=== PATIENT | female | born 1945 | race Caucasian/White ===

== ENCOUNTER 2017-12-11 14:59 | Emergency (ER) | payer MEDICARE ==
--- OUTSIDE RECORDS SUMMARY | 2017-12-11 15:11 | XMS REPORT ---
:1945 External Reference #:[id number] Author Organization [facility] Address [address] [place] [address] Phone [phone] Care Team Providers Name Role Phone Jessica David MD Primary Care Physician Unavailable Payers Type Date Identification Numbers Payment Provider Subscriber Medicare Primary Effective: Policy Number: Medicare [place] Grigsby 2009 [id number] PayID: [id number] [address] [place] [address] Medigap Part B Policy Number: [id number] [facility] [place] Grigs[place] PayID: [id number] [address] [place] [address] Workers Compensation Effective: Policy Number: Jolie Grigsby 2014 [id number] Expires: [address] Onset: 2014 [address] [place] [address] Medigap Part B Effective: Policy Number: [employer] Lisa 2012 [id number] Kristina Grigsby Expires: 2014 PayID: [id number] [address] [place] [address] Medigap Part B Expires: 2009 Policy Number: BS Of MAGEN Grigsby [id number] Group Number: [id number] [address] PayID: [id number] [address] Medigap Part B Expires: 2012 Policy Number: BS Of [employer]EN Grigsby [id number] PayID: [id number] [address] [address] Problems Date Description Provider Status Onset: 09/11/2007 Skin sensation disturbance Trip Washington M.D. Active Onset: 04/30/2011 Postablative hypothyroidism Trip Washington M.D. Active Onset: 01/09/2012 Essential hypertension Trip Washington M.D. Active Onset: 07/09/2012 Pure hypercholesterolemia Trip Washington M.D. Active Onset: 11/04/2014 Gastroesophageal reflux disease with Jessica David M.D. Active hiatal hernia Onset: 11/04/2014 Family history of malignant neoplasm Jessica Davdi M.D. Active of breast Note: sister Onset: 11/04/2014 Hypercholesterolemia Jessica David M.D. Active Onset: 11/04/2006 Hyperplastic polyp of intestine Jessica David M.D. Active Onset: 11/04/2014 Constipation - functional Jessica David M.D. Active Onset: 06/21/2015 Internal hemorrhoids without Jessica David M.D. Active complication Onset: 07/06/2015 Thoracic and lumbosacral neuritis Karyn Roth MD Active Onset: 09/12/2015 Idiopathic peripheral neuropathy Karyn Rtoh MD Active Onset: 11/14/2015 Localized, primary osteoarthritis of Jacinda Winter M.D. Active the pelvic region and thigh Onset: 11/14/2015 Trochanteric bursitis Jessica David M.D. Active Onset: 07/24/2016 Osteoporosis Jessica David M.D. Active Note: hip R Onset: 04/30/2011 Increased frequency of urination Trip Washington M.D. Resolved Resolved: 11/07/2014 Onset: 04/30/2011 Low back pain Trip Washington M.D. Resolved Resolved: 11/07/2014 Onset: 09/04/2011 Palpitations Trip Washington M.D. Resolved Resolved: 11/07/2014 Onset: 08/14/2012 Difficulty breathing Trip Washington M.D. Resolved Resolved: 11/07/2014 Social History Type Date Description Comments Lives With Occupation Retired Cigarette Use Never Smoked Cigarettes ETOH Use Occasionally consumes alcohol Smoking Patient has never smoked Exercise Type/Frequency Exercises regularly water aerobics 3 times a week; active around the house. Allergies, Adverse Reactions, Alerts Date Description Reaction Status Severity Comments 02/24/2007 Darvon active GI Upset 04/30/2011 Iodine active developed itching & rash 05/19/2015 Statins active diffuse joint pains Medications Medication Date Status Form Strength Qnty SIG Indications Ordering Provider Amoxicillin/Cl 12/09 Hx Tablets 875-125mg 20tab 1 tab by J01.90 Jessica avulanate s mouth twice a David, - day M.D. 12/19 Tessalon 09/30 Active Capsules 100mg 30cap 1-2 tab by Jessica Perles s mouth daily David, at night for M.D. cough Fenofibrate 05/19 Active Tablets 145mg 90tab Take 1 Tablet E78.0 Trip Jimenez s Daily Chasity Washington Synthroid 03/03 Active Tablets 125mcg 180ta 1 by mouth bs daily 3 times David, a week M.D. alternating with 150 mg daily Synthroid 06/24 Active Tablets 150mcg 90tab 1 Tab Daily 4 s Times A Week Chasity David Triamterene/Hy 01/13 Active Capsules 37.5-25mg 90cap Take 1 Jessica drochlorothiaz s Capsule Every , Morning M.DSeb Citrucel 10/14 Active Packet 2 tbsp qam Trip ESeb Chasity Washington Calcium + D Active Tablets 600mg 1 PO daily Unknown Vitamin B Active Tablets 1 PO qd Miller, / MD Srikanth Aspirin Active Tablets 81mg 1 po qd Miralax Active Powder 3350NF 17 gm every day mixed w/ 8 oz water/juice daily Klor-Con M10 Active Tablets ER 10Meq 180ta Take 2 bs Tablets once David, a day M.DSeb Tylenol PM Active Tablets take as prescribed on bottle as needed pain Azithromycin 10/29 Hx Tablets 250mg 6tabs take 2 tab on day 1 then 1 David, - tab daily x 4 M.D. Proair 10/07 Hx Aerosol 108(90Bas 8.500 2 puffs by R05 Jessica Respiclick /2017 e) gm mouth every 6 David, - mcg/Act hours as M.D. 12/09 needed Oseltamivir 09/27 Hx Capsules 75mg 10cap 1 by mouth J20.9 Trip E. Phosphate /2017 s twice a day Padmini, - for 5 days M.D. 10/07 Prednisone 05/27 Hx Tablets 10mg qs take 3 tab L29.8 Jessica /2016 daily x 2 David, - days then 2 M.D. 06/04 tab daily x 3 days and then 1 tab daily x 3 days Alendronate 07/24 Hx Tablets 70mg 12tab not M81.8 Jessica Sodium s taking---take Joseph, - 1 tablet by M.D. 12/09 mouth weekly Cefuroxime 03/05 Hx Tablets 250mg 20tab one tablet J01.10 César Axetil s twice daily ERNESTINE Patton - for 10 days. 03/16 Metformin HCL 11/09 Hx Tablets 500mg 60tab 1 by mouth Jessica /2016 s twice a day Joseph - M.D. 12/19 Gabapentin 09/12 Hx Capsules 100mg 120ca 1 at bedtime G60.9 Karyn ps x1 week then MD Ira - 1 twice a day 10/23 x1 wk then qam and 2 qpm x1wk then 2 bid. Cefuroxime 09/08 Hx Tablets 250mg 20tab one tablet J01.90 César Axetil s twice daily ERNESTINE Patton - for 10 days. 09/19 Amoxicillin/Cl 07/13 Hx Tablets 875-125mg 20tab 1 tab by J01.90 Jessica avulanate s mouth twice a Joseph, Potassium - day M.D. 09/08 Alendronate 07/13 Hx Tablets 70mg 12tab take 1 tablet M81.8 Jessica Sodium s by mouth Joseph, - weekly M.D. 10/23 Metronidazole 06/21 Hx Gel 0.75% 1unit apply N76.0 Jessica s intravaginall Joseph, - y once a day M.D. 06/28 x 7 Metrogel-Vagin 05/25 Hx Gel 0.75% 70gm once a day X 7 days Joseph - M.D. 06/21 Synthroid 11/23 Hx Tablets 137mcg 90tab 1 by mouth s every other Joseph, - day M.D. 03/03 with 150 mcg Synthroid 06/24 Hx Tablets 125mcg 180ta 2 by mouth bs every day Oscar David M.D. 09/21 Atorvastatin 05/13 Hx Tablets 10mg 90tab 1 by mouth 272.0 s every day Oscar David M.DSeb 03/03 Nyamyc 05/13 Hx Powder [id number] 100gm apply to 112.9 t/GM s affected area Joseph, - twice a day M.D. 09/21 x 10 days needed Oxycodone-Acet 01/20 Hx Tablets 5-325mg 10tab 08/13 to 1 tab 847.2 Jessica aminophen s as needed for Joseph, - severe pain M.D. 05/13 at night only Synthroid 07/14 Hx Tablets 200mcg 90tab 1 po qd Jayce Oscar Restrepo M.D.,FACP 07/15 Synthroid 04/30 Hx Tablets 200mcg 90tab 1 po qd 244.1 Trip ESeb /2010 Oscar Gunderson M.D. 09/04 Synthroid 04/30 Hx Tablets 25mcg 60tab 1 po qd 244.1 Trip ESeb /2010 Oscar Gunderson M.D. 09/04 Triamterene/Hy 04/03 Hx Capsules 37.5-25mg 90cap Take 1 Trip Jimenez drochlorothiaz /2010 s Capsule Every martín Washington - Morning M.D. 01/13 Amlodipine 03/11 Hx Tablets 10mg 90tab Take 1 Tablet Trip Jimenez Besylate /2010 s Daily Oscar Washington M.D. 03/05 Amoxicillin 07/25 Hx Tablets 500mg 30tab 1 po tid for Trip Jimenez s 10 days Oscar Washington M.D. 08/31 Zithromax 02/20 Hx Tablets 250mg 1Pack as per Trip Robledo Oscar Murrieta M.D. 04/06 Robitussin 02/20 Hx 6Oz 10 cc qhs and Trip Jimenez With Codeine q 4 hrs prn Breonna Washington M.D. 04/06 Flonase 10/19 Hx Suspension 50mcg/Act 1Bott 1 intranasal Trip Jimenez le puff to each Oscar Washington nostril daily Chasity 01/24 Tessalon 09/30 Hx Capsules 100mg 30cap 1-2 po tid Trip Jimenez s prn Oscar Washington M.D. 01/24 Medrol (Bob) 09/30 Hx Tablets 4mg 1tabs per dosepack Trip Jimenez Oscar Murrieta M.D. 04/06 Fish Oil 09/26 Hx Capsules Not Sure 1 po qd Trip Jimenez Oscar Washington M.D. 01/08 Augmentin 09/26 Hx Tablets 875-125mg 20tab 1 po bid Trip Jimenez Oscar Gunderson M.D. 01/24 Z Pack 09/02 Hx Tablets 250mg 5tabs as directed. Trip Jimenez Oscar Washington M.D. 09/26 Norvasc 07/20 Hx Tablets 10mg 90tab 1 po qd Trip Jimenez Oscar Gunderson M.D. 03/11 Relafen 11/04 Hx Tablets 500mg 60tab 1 po bid with Trip Jimenez s food Oscar Washington M.D. 02/08 Norvasc 05/17 Hx Tablets 5mg 90tab 1 po qd Trip Jimenez Oscar Gunderson M.D. 07/20 Zithromax 05/17 Hx Tablets 250mg 1Pack as per Trip Robledo directions Oscar Washington M.D. 08/02 Physical 04/05 Hx PT evaluation Trip Mancera and treatment Oscar Washington for l buttock MPamela 02/08 pain /2009 Physical 09/30 Hx 10Vis left Trip Jimenez Therapy /2007 its shoulder,arm Oscar Washington and abd pain. MPamela 02/08 evaluate and treat Nitrostat 09/23 Hx Tablets Sub 0.4mg 25tab one sl q5min Trip Jimenez s up to 3 doses Oscar Washington M.D. 10/14 Atenolol 09/23 Hx Tablets 25mg 30tab 1 po bid Trip Jimenez s Oscar Washington M.D. 05/17 Dyazide 09/10 Hx Capsules 37.5-25 90cap 1 po qam Trip Jimenez Oscar Gunderson M.D. 04/03 Levaquin 05/13 Hx Tablets 500mg 1O 1 po qd x 10 Trip ESeb days Oscar Washington M.D. 09/10 . 05/13 Hx physical Trip Jimenez therapy: Oscar Washington eval/Rx Chasity 09/10 chronic r shoulder pain Evista Hx Tablets 60mg 90tab 1 PO qd Unknown /0000 s - 09/11 Albuterol Hx Aerosol 90mcg/Act 1unit 2 Puffs po Jayce /0000 s qid prn Oscar Pizano M.D.,FACP 06/10 Multi-Day Hx Tablets 1 PO qd Unknown Vitamins /0000 - 03/05 Metamucil Hx Barken, /0000 MD Srikanth - 10/14 Gabapentin Hx Capsules 100mg 1 po tid Unknown /0000 - 07/20 Aspirin Hx Chewtabs 81mg 30uni Unknown Childrens /0000 ts - 08/14 Red Rice Yeast Hx 2 po qd Unknown /0000 - 05/13 Ibuprofen Hx Tablets 400mg 40tab 1 by mouth Unknown /0000 s every 6hr as - needed 07/[address] 40mg 90cap take 1 Jessica /0000 s capsule daily Oscar David M.D. 10/23 Synthroid 00/00 Hx Tablets 175mcg 90tab Take 1 Tablet Jessica /0000 s Daily Oscar David.DSeb 06/24 Multi Vitamin Hx Tablets not taking Unknown Daily /0000 - 07/23 Fluticasone 00 Hx Suspension 50mcg/Act 32gm 1 squirts Jessica Propionate /0000 each nostril Joseph, - every day otc M.DSeb 12/09 as needed Omeprazole [address] 20mg 1 by mouth Unknown /0000 every day - 10/[address] 20mg 1 by mouth Unknown Magnesium /0000 every day - OTC 12/19 Gabapentin 00 Hx Capsules 100mg 1 by mouth @ Unknown /0000 hs - 07/23 Aleve PM Hx Tablets 220-25mg as needed Unknown /0000 OTC - 05/26 Medications Administered in Office Medication Date Status Form Strength Qnty SIG Indications Ordering Provider Depomedrol Administered Injection Jinny 40MG 017 Chasity Person Depomedrol Administered Injection Jacinda 40MG 016 Chasity Winter Depomedrol Administered Injection Mirza 80MG 014 Chasity Culver Depomedrol Administered Injection Mirza 80MG 014 Chasity Culver Immunizations CPT Code Status Date Vaccine Lot # [id number] Given 07/25/2017 Tdap - Tetanus/Diptheria/Acellular Pertussis [id number] 81331 Given 05/01/2017 Influenza Virus Vaccine, Quadrivalent, Split, Preservative Free Q2039 Given 05/29/2016 Flu Vaccine NOS 45199 Given 05/19/2015 Pneumococcal Conjugate Vaccine 13 Valent For [id number] Intramuscular Use 53179 Given 04/20/2015 Fluzone High Dose 81248 Given 04/13/2015 Influenza Virus Vaccine, Quadrivalent, Split, Preservative Free Q2038 Given 04/30/2014 Fluzone Vaccine [id number] Given 04/30/2013 Flu Vaccine Split Virus Preservative Free For [id number] Indiv 3Yr Older 77458 Given 04/30/2013 Flu Vaccine Split Virus Preservative Free For Indiv 3Yr Older Q2038 Given 05/05/2012 Fluzone Vaccine [id number] Q2038 Given 04/30/2011 Fluzone Vaccine [id number] 35772 Given 06/29/2010 Pneumonia Vaccine [id number] 08024 Given 07/21/2008 Zoster (Zostavax) 58481 Given 07/21/2008 Zoster (Zostavax) [id number] 52111 Given 05/17/2008 Influenza Virus 3Yrs & Over 05485 Given 05/22/2007 Influenza Virus 3Yrs & Over 65056 Given 02/24/2007 Tdap - Tetanus/Diptheria/Acellular Pertussis [id number] Vital Signs Date Vital Result Comment 12/09/2017 Height 63.4 inches 5'3.40" Weight 146.00 lb Heart Rate 84 /min BP Systolic Sitting 110 mmHg BP Diastolic Sitting 70 mmHg Body Temperature 97.8 F O2 % BldC Oximetry 96 % BMI (Body Mass Index) 25.5 kg/m2 10/07/2017 Weight 146.00 lb Heart Rate 69 /min BP Systolic Sitting 118 mmHg BP Diastolic Sitting 76 mmHg Body Temperature 98.8 F O2 % BldC Oximetry 97 % 09/27/2017 Weight 145.00 lb Heart Rate 84 /min BP Systolic Sitting 108 mmHg BP Diastolic Sitting 74 mmHg Body Temperature 99.2 F O2 % BldC Oximetry 95 % 07/25/2017 Height 63.4 inches 5'3.40" Weight 147.00 lb Heart Rate 75 /min BP Systolic Sitting 128 mmHg BP Diastolic Sitting 80 mmHg O2 % BldC Oximetry 94 % BMI (Body Mass Index) 25.7 kg/m2 05/27/2017 Weight 143.00 lb Heart Rate 69 /min BP Systolic Sitting 139 mmHg BP Diastolic Sitting 79 mmHg Body Temperature 97.9 F O2 % BldC Oximetry 96 % 04/11/2017 Height 63 inches 5'3" Weight 145.00 lb Heart Rate 60 /min BP Systolic 128 mmHg BP Diastolic 72 mmHg Respiratory Rate 15 /min Body Temperature 98.1 F Pain Level 5 BMI (Body Mass Index) 25.7 kg/m2 04/10/2017 Height 63 inches 5'3" Weight 144.50 lb Heart Rate 74 /min BP Systolic Sitting 124 mmHg BP Diastolic Sitting 78 mmHg Body Temperature 98.2 F O2 % BldC Oximetry 94 % BMI (Body Mass Index) 25.6 kg/m2 07/24/2016 Height 63 inches 5'3" Weight 138.25 lb Heart Rate 67 /min BP Systolic 120 mmHg BP Diastolic 80 mmHg Body Temperature 97.4 F O2 % BldC Oximetry 99 % BMI (Body Mass Index) 24.5 kg/m2 04/04/2016 Weight 135.00 lb with shoes Heart Rate 56 /min BP Systolic Sitting 138 mmHg BP Diastolic Sitting 80 mmHg Body Temperature 97.9 F O2 % BldC Oximetry 98 % 04/04/2016 Weight 135.00 lb 03/05/2016 Weight 135.00 lb with shoes Heart Rate 73 /min BP Systolic Sitting 150 mmHg BP Diastolic Sitting 86 mmHg Body Temperature 97.8 F O2 % BldC Oximetry 98 % 01/24/2016 Height 64 inches 5'4" Weight 137.00 lb Heart Rate 72 /min BP Systolic Sitting 128 mmHg BP Diastolic Sitting 76 mmHg BMI (Body Mass Index) 23.5 kg/m2 01/03/2016 Height 64 inches 5'4" Weight 138.00 lb Heart Rate 60 /min BP Systolic Sitting 112 mmHg BP Diastolic Sitting 68 mmHg Respiratory Rate 14 /min BMI (Body Mass Index) 23.7 kg/m2 12/20/2015 Weight 140.00 lb Heart Rate 75 /min BP Systolic Sitting 117 mmHg BP Diastolic Sitting 65 mmHg Body Temperature 97.9 F 11/25/2015 Height 64 inches 5'4" Weight 148.00 lb Pain Level 3 BMI (Body Mass Index) 25.4 kg/m2 11/14/2015 Height 64 inches 5'4" Weight 148.00 lb Pain Level 6 BMI (Body Mass Index) 25.4 kg/m2 10/24/2015 Height 64 inches 5'4" Weight 148.00 lb Heart Rate 66 /min BP Systolic 106 mmHg BP Diastolic 63 mmHg Body Temperature 98.1 F O2 % BldC Oximetry 95 % BMI (Body Mass Index) 25.4 kg/m2 09/12/2015 Height 64 inches 5'4" Weight 147.00 lb Heart Rate 68 /min BP Systolic Sitting 110 mmHg BP Diastolic Sitting 72 mmHg Respiratory Rate 14 /min BMI (Body Mass Index) 25.2 kg/m2 09/08/2015 Weight 151.00 lb Heart Rate 76 /min BP Systolic Sitting 118 mmHg BP Diastolic Sitting 70 mmHg Respiratory Rate 15 /min Body Temperature 97.6 F O2 % BldC Oximetry 98 % 07/13/2015 Heart Rate 65 /min BP Systolic Sitting 107 mmHg BP Diastolic Sitting 66 mmHg Body Temperature 98.9 F O2 % BldC Oximetry 97 % 07/06/2015 Height 64 inches 5'4" Weight 150.00 lb Heart Rate 67 /min BP Systolic Sitting 118 mmHg BP Diastolic Sitting 68 mmHg Respiratory Rate 17 /min BMI (Body Mass Index) 25.7 kg/m2 06/21/2015 Height 64 inches 5'4" Weight 150.00 lb Heart Rate 66 /min BP Systolic Sitting 102 mmHg BP Diastolic Sitting 60 mmHg Respiratory Rate 14 /min Body Temperature 98.4 F O2 % BldC Oximetry 98 % BMI (Body Mass Index) 25.7 kg/m2 06/17/2015 Height 64 inches 5'4" Weight 150.00 lb BMI (Body Mass Index) 25.7 kg/m2 06/01/2015 Height 64 inches 5'4" Weight 150.00 lb Pain Level 7 BMI (Body Mass Index) 25.7 kg/m2 05/19/2015 Height 64 inches 5'4" Weight 152.00 lb Heart Rate 75 /min BP Systolic 124 mmHg BP Diastolic 72 mmHg Body Temperature 98.3 F O2 % BldC Oximetry 96 % BMI (Body Mass Index) 26.1 kg/m2 12/08/2014 Height 64 inches 5'4" Weight 145.00 lb Heart Rate 87 /min BP Systolic Sitting 131 mmHg BP Diastolic Sitting 79 mmHg Pain Level 5 BMI (Body Mass Index) 24.9 kg/m2 11/04/2014 Weight 146.00 lb Heart Rate 70 /min BP Systolic Sitting 126 mmHg BP Diastolic Sitting 82 mmHg 09/21/2014 Weight 147.00 lb Heart Rate 73 /min BP Systolic Sitting 129 mmHg BP Diastolic Sitting 84 mmHg O2 % BldC Oximetry 95 % 05/13/2014 Height 64 inches 5'4" Weight 148.00 lb Heart Rate 70 /min BP Systolic Sitting 118 mmHg BP Diastolic Sitting 70 mmHg BMI (Body Mass Index) 25.4 kg/m2 04/21/2014 Height 64 inches 5'4" Heart Rate 89 /min BP Systolic 89 mmHg BP Diastolic 90 mmHg 02/03/2014 Weight 146.00 lb Heart Rate 78 /min BP Systolic Sitting 118 mmHg BP Diastolic Sitting 62 mmHg 01/20/2014 Weight 145.00 lb Heart Rate 102 /min BP Systolic Sitting 130 mmHg BP Diastolic Sitting 80 mmHg 01/13/2014 Weight 145.00 lb Heart Rate 82 /min BP Systolic Sitting 138 mmHg BP Diastolic Sitting 80 mmHg 12/09/2013 Height 64 inches 5'4" Heart Rate 76 /min BP Systolic 133 mmHg BP Diastolic 82 mmHg 11/12/2013 Weight 147.50 lb Heart Rate 72 /min BP Systolic Sitting 110 mmHg BP Diastolic Sitting 68 mmHg Body Temperature 97.7 F O2 % BldC Oximetry 97 % 10/28/2013 Heart Rate 79 /min BP Systolic 143 mmHg BP Diastolic 89 mmHg 10/16/2013 Heart Rate 105 /min BP Systolic 142 mmHg BP Diastolic 102 mmHg 09/11/2013 Heart Rate 83 /min BP Systolic 131 mmHg BP Diastolic 85 mmHg 06/10/2013 Weight 150.00 lb Heart Rate 78 /min BP Systolic Sitting 138 mmHg BP Diastolic Sitting 83 mmHg Body Temperature 97.0 F 05/14/2013 Height 63.75 inches 5'3.75" Weight 146.50 lb Heart Rate 67 /min BP Systolic Sitting 120 mmHg BP Diastolic Sitting 74 mmHg O2 % BldC Oximetry 97 % BMI (Body Mass Index) 25.3 kg/m2 04/30/2013 Height 63.75 inches 5'3.75" Weight 145.75 lb Heart Rate 67 /min BP Systolic Sitting 127 mmHg BP Diastolic Sitting 85 mmHg BMI (Body Mass Index) 25.2 kg/m2 03/05/2013 Weight 147.50 lb Heart Rate 66 /min BP Systolic Sitting 126 mmHg BP Diastolic Sitting 78 mmHg 08/14/2012 Height 64 inches 5'4" Weight 149.00 lb Heart Rate 80 /min BP Systolic Sitting 132 mmHg BP Diastolic Sitting 82 mmHg BMI (Body Mass Index) 25.6 kg/m2 07/09/2012 Height 64 inches 5'4" Weight 150.00 lb Heart Rate 89 /min BP Systolic Sitting 134 mmHg 140/88 BP Diastolic Sitting 84 mmHg 140/88 BMI (Body Mass Index) 25.7 kg/m2 05/29/2012 Height 64 inches 5'4" Weight 147.00 lb Heart Rate 88 /min BP Systolic Sitting 130 mmHg BP Diastolic Sitting 76 mmHg BMI (Body Mass Index) 25.2 kg/m2 01/09/2012 Height 64 inches 5'4" Weight 145.00 lb Heart Rate 64 /min BP Systolic Sitting 104 mmHg BP Diastolic Sitting 60 mmHg Respiratory Rate 16 /min Body Temperature 98.0 F lt ear BMI (Body Mass Index) 24.9 kg/m2 09/04/2011 Height 64 inches 5'4" Weight 141.00 lb Heart Rate 96 /min BP Systolic Sitting 136 mmHg BP Diastolic Sitting 78 mmHg Body Temperature 98.5 F BMI (Body Mass Index) 24.2 kg/m2 04/30/2011 Height 64.5 inches 5'4.50" Weight 140.00 lb Heart Rate 84 /min BP Systolic Sitting 120 mmHg BP Diastolic Sitting 82 mmHg Body Temperature 97.4 F BMI (Body Mass Index) 23.7 kg/m2 01/29/2011 Weight 138.00 lb Heart Rate 74 /min BP Systolic Sitting 112 mmHg BP Diastolic Sitting 72 mmHg Body Temperature 98.0 F lt ear 10/04/2010 Weight 135.00 lb Heart Rate 76 /min BP Systolic 120 mmHg BP Diastolic 76 mmHg 07/25/2010 Weight 136.00 lb Heart Rate 76 /min BP Systolic Sitting 130 mmHg BP Diastolic Sitting 72 mmHg 06/29/2010 Weight 136.00 lb Heart Rate 90 /min BP Systolic Sitting 120 mmHg BP Diastolic Sitting 82 mmHg 02/20/2010 Weight 140.00 lb Heart Rate 94 /min BP Systolic Sitting 116 mmHg BP Diastolic Sitting 78 mmHg 01/24/2010 Weight 139.00 lb Heart Rate 64 /min BP Systolic Sitting 115 mmHg BP Diastolic Sitting 72 mmHg Body Temperature 98.4 F 10/19/2009 Weight 145.00 lb Heart Rate 98 /min BP Systolic Sitting 112 mmHg BP Diastolic Sitting 70 mmHg Body Temperature 98.3 F O2 % BldC Oximetry 97 % 09/30/2009 Heart Rate 96 /min BP Systolic Sitting 126 mmHg BP Diastolic Sitting 64 mmHg Respiratory Rate 16 /min Body Temperature 98.4 F O2 % BldC Oximetry 98 % 09/26/2009 Height 64.5 inches 5'4.50" Weight 146.00 lb Heart Rate 100 /min BP Systolic Sitting 130 mmHg BP Diastolic Sitting 72 mmHg Body Temperature 98.3 F BMI (Body Mass Index) 24.7 kg/m2 08/18/2009 Heart Rate 68 /min BP Systolic Sitting 106 mmHg BP Diastolic Sitting 70 mmHg Body Temperature 98.6 F 07/20/2009 Weight 148.50 lb Heart Rate 80 /min BP Systolic Sitting 124 mmHg BP Diastolic Sitting 86 mmHg 02/08/2009 Height 64.5 inches 5'4.50" Weight 152.00 lb Heart Rate 80 /min BP Systolic Sitting 120 mmHg BP Diastolic Sitting 80 mmHg BMI (Body Mass Index) 25.7 kg/m2 10/14/2008 Height 64.5 inches 5'4.50" Weight 150.00 lb Heart Rate 88 /min BP Systolic Sitting 132 mmHg BP Diastolic Sitting 82 mmHg BMI (Body Mass Index) 25.3 kg/m2 08/02/2008 Height 64.5 inches 5'4.50" Weight 153.00 lb Heart Rate 84 /min BP Systolic Sitting 120 mmHg BP Diastolic Sitting 76 mmHg BMI (Body Mass Index) 25.9 kg/m2 05/17/2008 Height 64.5 inches 5'4.50" Weight 149.00 lb Heart Rate 84 /min BP Systolic Sitting 130 mmHg BP Diastolic Sitting 84 mmHg BMI (Body Mass Index) 25.2 kg/m2 04/05/2008 Height 64.5 inches 5'4.50" Weight 149.00 lb Heart Rate 76 /min BP Systolic Sitting 152 mmHg BP Diastolic Sitting 88 mmHg BMI (Body Mass Index) 25.2 kg/m2 09/23/2007 Height 64.5 inches 5'4.50" Weight 149.00 lb Heart Rate 78 /min BP Systolic Sitting 142 mmHg BP Diastolic Sitting 90 mmHg BMI (Body Mass Index) 25.2 kg/m2 09/10/2007 Height 64.5 inches 5'4.50" Weight 150.00 lb Heart Rate 72 /min 80 with patient's monitor BP Systolic Sitting 164 mmHg 154/100 with patient's monitor BP Diastolic Sitting 104 mmHg 154/100 with patient's monitor BMI (Body Mass Index) 25.3 kg/m2 05/13/2007 Height 64.5 inches 5'4.50" Weight 152.00 lb Heart Rate 76 /min BP Systolic Sitting 140 mmHg BP Diastolic Sitting 90 mmHg BMI (Body Mass Index) 25.7 kg/m2 02/24/2007 Height 64.5 inches 5'4.50" Weight 151.00 lb Heart Rate 64 /min BP Systolic Sitting 134 mmHg BP Diastolic Sitting 90 mmHg BMI (Body Mass Index) 25.5 kg/m2 Results Test Date Test Result H/L Range Note Rapid Influenza A & 09/27/2017 Influenza A Molecular POSITIVE Negative 1 B Molecular Influenza B Molecular NEGATIVE Negative Laboratory test 09/27/2017 Rapid Influenza A B SEE RESULT BELOW 2, 3 finding Antigen Creatinine 08/08/2017 Creatinine 0.80 mg/dL 0.51-0.95 Egfr Non- 70.5 >60 Egfr 90.7 >60 4 Lipid Profile (Trig/Chol/HDL) 07/20/2017 Triglycerides 69 mg/dL 5 Cholesterol 209 mg/dL 6 HDL Cholesterol 86.3 mg/dL 7 LDL Cholesterol 109 mg/dL 8 Basic Metabolic Panel 07/20/2017 Sodium 140 mmol/L 133-145 Potassium 3.7 mmol/L 3.5-5.0 Chloride 104 mmol/L 101-111 Co2 Carbon Dioxide 31 mmol/L 22-32 Anion Gap 5 mmol/L 2-11 Glucose 98 mg/dL 70-100 Blood Urea Nitrogen 20 mg/dL 6-24 Creatinine 0.87 mg/dL 0.51-0.95 BUN/Creatinine Ratio 23.0 High 8-20 Calcium 9.8 mg/dL 8.6-10.3 Egfr Non- 64.0 >60 Egfr 82.3 >60 9 Laboratory test finding 07/20/2017 TSH (Thyroid Stim 3.90 mcIU/mL 0.34- 5.60 10 Horm) T3 Free 2.90 pg/mL 2.5-3.9 11 Free T4 (Free Thyroxine) 1.25 ng/dL High 0.61-1.12 12 Laboratory test finding 05/27/2017 TSH (Thyroid Stim Horm) 4.98 mcIU/mL 0.34-5.60 T3 Free 3.00 pg/mL 2.5-3.9 Free T4 (Free Thyroxine) 1.36 ng/dL High 0.61-1.12 Liver Function Panel 05/27/2017 Total Protein 6.8 g/dL 6.4-8.9 Albumin 4.2 g/dL 3.2-5.2 Globulin 2.6 g/dL 2-4 Albumin/Globulin Ratio 1.6 1-3 Total Bilirubin 0.60 mg/dL 0.2-1.0 Direct Bilirubin 0.10 mg/dL 0.03-0.18 Indirect Bilirubin 0.5 mg/dL 0.3-1.0 Alkaline Phosphatase 42 U/L 34-104 Alt 18 U/L 7-52 Ast 23 U/L 13-39 Laboratory test finding 04/11/2017 T3 Free 1.80 pg/mL Low 2.5-3.9 13 Free T4 (Free Thyroxine) 1.03 ng/dL 0.61-1.12 14 TSH (Thyroid Stim Horm) 9.49 mcIU/mL High 0.34-5.60 15 Basic Metabolic Panel 04/11/2017 Sodium 141 mmol/L 133-145 Potassium 4.0 mmol/L 3.5-5.0 Chloride 105 mmol/L 101-111 Co2 Carbon Dioxide 31 mmol/L 22-32 Anion Gap 5 mmol/L 2-11 Glucose 104 mg/dL High 70-100 Blood Urea Nitrogen 17 mg/dL 6-24 Creatinine 0.86 mg/dL 0.51-0.95 BUN/Creatinine Ratio 19.8 8-20 Calcium 10.3 mg/dL 8.6-10.3 Egfr Non- 64.9 >60 Egfr 83.4 >60 16 Laboratory test 04/11/2017 Hemoglobin A1c 6.1 % High Less than 6.0 17 finding (Glyco HGB) Laboratory test 11/12/2016 TSH (Thyroid Stim 6.06 mcIU/mL High 0.34-5.60 finding Horm) T3 Free 2.80 pg/mL 2.5-3.9 Free T4 (Free Thyroxine) 1.29 ng/dL High 0.61-1.12 Laboratory test finding 09/06/2016 TSH (Thyroid Stim 5.86 mcIU/mL High 0.34-5.60 Horm) T3 Free 2.80 pg/mL 2.5-3.9 Free T4 (Free Thyroxine) 1.46 ng/dL High 0.61-1.12 Comp Metabolic Panel 08/30/2016 Sodium 136 mmol/L 133-145 Potassium 4.2 mmol/L 3.5-5.0 Chloride 101 mmol/L 101-111 Co2 Carbon Dioxide 31 mmol/L 22-32 Anion Gap 4 mmol/L 2-11 Glucose 100 mg/dL 70-100 Blood Urea Nitrogen 18 mg/dL 6-24 Creatinine 0.85 mg/dL 0.51-0.95 BUN/Creatinine Ratio 21.2 High 8-20 Calcium 10.7 mg/dL High 8.6-10.3 Total Protein 6.8 g/dL 6.4-8.9 Albumin 4.1 g/dL 3.2-5.2 Globulin 2.7 g/dL 2-4 Albumin/Globulin Ratio 1.5 1-3 Total Bilirubin 0.50 mg/dL 0.2-1.0 Alkaline Phosphatase 58 U/L 34-104 Alt 37 U/L 7-52 Ast 39 U/L 13-39 Egfr Non- 65.9 >60 Egfr 84.8 >60 18 Laboratory test 08/30/2016 Hemoglobin A1c 5.8 % Less than 6.0 19 finding (Glyco HGB) Pthi 08/30/2016 Calcium (PTH Intact) 10.4 mg/dL High 8.6-10.3 PTH Intact < 1.3 pmol/L Low 1.3-9.3 Laboratory test finding 08/30/2016 Vitamin D Total 25(Oh) 39.0 ng/mL 30- 50 TSH (Thyroid Stim Horm) 10.19 mcIU/mL High 0.34-5.60 Laboratory test finding 06/07/2016 TSH (Thyroid Stim Horm) 4.32 mcIU/mL 0.34-5.60 T3 Free 2.70 pg/mL 2.5-3.9 Free T4 (Free Thyroxine) 1.47 ng/dL High 0.61-1.12 Lipid Profile (Trig/Chol/HDL) 05/23/2016 Triglycerides 48 mg/dL 20, 21 Cholesterol 209 mg/dL 20, 22 HDL Cholesterol 86.3 mg/dL 20, 23 LDL Cholesterol 113 mg/dL 20, 24 Laboratory test 05/23/2016 TSH (Thyroid Stim 6.13 mcIU/mL High 0.34-5.60 20, 25 finding Horm) Glucose 99 mg/dL 70-100 20, 26 Ua Routine 04/04/2016 Ua Specific [place] 1.015 Ua PH 6 Ua Color dark yellow Ua Appera clear Ua WBC neg Ua Protein trace Ua Glucose neg Ua Ketones neg Ua Bilirubin neg Ua Urobilinogen normal Ua Nitrite neg Ua Occult Blood neg Laboratory test finding 01/24/2016 Hemoglobin A1c 6.1 5-7 Laboratory test finding 11/21/2015 TSH (Thyroid Stim 0.46 ?IU/mL 0.34- 5.60 Horm) Laboratory test finding 10/17/2015 Glucose 111 mg/dL High 70-100 Hemoglobin A1c (Glyco HGB) 6.3 % High Less than 6.0 27 Laboratory test finding 09/12/2015 Vitamin B12 675 pg/mL 180-914 28 Folic Acid (Folate) > 20.00 ng/mL >3.99 29 Methylmalonic Acid Mma 0.38 nmol/mL <=0.40 30 Flora (Antinuclear Antibodies) Negative Negative 31 Erythrocyte Sed Rate 19 mm/Hr 0-40 32 C Reactive Protein 2.82 mg/L < 5.00 33 Protein Electrophoresis 09/12/2015 Total Protein(Pep) 7.6 g/dL 6.3 - 7.9 Albumin 3.7 g/dL 3.4-4.7 Alpha-1 Globulin 0.3 g/dL 0.1-0.3 Alpha-2 Globulin 1.2 g/dL 0.6-1.0 Beta Globulin 1.2 g/dL 0.7-1.2 Gamma Globulin 1.3 g/dL 0.6-1.6 Albumin/Globulin Ratio 0.95 Impression See Comment 34 Laboratory test finding 09/12/2015 Rheumatoid Factor <15 IU/mL <15 35 Ssa/SSB Abs Igg 09/12/2015 SS-A/Ro Antibody <0.2 U 36 SS-B/La Antibody <0.2 U 37 Laboratory test 09/12/2015 Hemoglobin A1c (Glyco 6.3 % High Less than 6.0 38 finding HGB) Liver Function Panel 07/11/2015 Total Protein 6.9 g/dL 6.4-8.9 Albumin 4.3 g/dL 3.2-5.2 Globulin 2.6 g/dL 2-4 Albumin/Globulin Ratio 1.7 1-3 Total Bilirubin 0.50 mg/dL 0.2-1.0 Direct Bilirubin 0.10 mg/dL 0.03-0.18 Indirect Bilirubin 0.4 mg/dL 0.3-1.0 Alkaline Phosphatase 74 U/L 34-104 Alt 27 U/L 7-52 Ast 28 U/L 13-39 Laboratory test finding 06/24/2015 TSH (Thyroid Stim Horm) 3.37 ?IU/mL 0.34-5.60 Comp Metabolic Panel 06/24/2015 Sodium 140 mmol/L 133-145 Potassium 4.2 mmol/L 3.5-5.0 Chloride 103 mmol/L 101-111 Co2 Carbon Dioxide 31 mmol/L 22-32 Anion Gap 6 mmol/L 2-11 Glucose 96 mg/dL 70-100 Blood Urea Nitrogen 13 mg/dL 6-24 Creatinine 0.83 mg/dL 0.51-0.95 BUN/Creatinine Ratio 15.7 8-20 Calcium 9.7 mg/dL 8.6-10.3 Total Protein 6.8 g/dL 6.4-8.9 Albumin 4.1 g/dL 3.2-5.2 Globulin 2.7 g/dL 2-4 Albumin/Globulin Ratio 1.5 1-3 Total Bilirubin 0.70 mg/dL 0.2-1.0 Alkaline Phosphatase 133 U/L High 34-104 Alt 64 U/L High 7-52 Ast 27 U/L 13-39 Egfr Non- 68.0 >60 Egfr 87.4 >60 39 Laboratory test 06/24/2015 Hepatitis C Nonreactive Nonreactive finding Antibody Laboratory test 05/19/2015 Gardnerella/Yeast: SEE RESULT BELOW 40 finding Vaginal Dna Trichomonas: Vaginal Dna Probe SEE RESULT BELOW 41 Laboratory test finding 05/03/2015 Free T4 (Free 1.13 ng/mL High 0.61- 1.12 Thyroxine) TSH (Thyroid Stim Horm) 3.48 ?IU/mL 0.34-5.60 T3 Free 3.10 pg/mL 2.5-3.9 Lipid Profile (Trig/Chol/HDL) 05/03/2015 Triglycerides 134 mg/dL 42 Cholesterol 276 mg/dL 43 HDL Cholesterol 73.4 mg/dL 44 LDL Cholesterol 176 mg/dL 45 Laboratory test finding 03/02/2015 Free T4 (Free 1.31 ng/mL High 0.61- 1.12 Thyroxine) TSH (Thyroid Stim Horm) 2.50 ?IU/mL 0.34-5.60 T3 Free 2.60 pg/mL 2.5-3.9 Laboratory test finding 11/22/2014 TSH (Thyroid Stimulating 0.56 IU/mL 0.34-5.60 Horm) Free T3 2.80 pg/mL 2.5-3.9 Free T4 1.49 ng/mL High 0.61-1.12 Laboratory test finding 10/04/2014 Free T3 3.10 pg/mL 2.5-3.9 Free T4 1.34 ng/mL High 0.61-1.12 TSH (Thyroid Stimulating Horm) 1.05 IU/mL 0.34-5.60 Laboratory test finding 09/07/2014 TSH (Thyroid Stimulating 1.08 IU/mL 0.34-5.60 Horm) Free T3 3.20 pg/mL 2.5-3.9 Free T4 1.54 ng/mL High 0.61-1.12 Laboratory test finding 06/24/2014 Creatine Kinase 37 U/L 10-223 Liver Function Panel 06/24/2014 Total Protein 6.5 g/dL 6.4-8.9 Albumin 4.0 g/dL 3.2-5.2 Globulin 2.5 g/dL 2-4 Albumin/Globulin Ratio 1.6 1-3 Total Bilirubin 0.70 mg/dL 0.2-1.0 Direct Bilirubin 0.10 mg/dL 0.03-0.18 Indirect Bilirubin 0.6 mg/dL 0.3-1.0 Alkaline Phosphatase 77 U/L 34-104 Alt 16 U/L 7-52 Ast 19 U/L 13-39 Laboratory test finding 06/24/2014 TSH (Thyroid Stimulating 1.48 IU/mL 0.34-5.60 Horm) Free T3 2.80 pg/mL 2.5-3.9 Free T4 1.46 ng/mL High 0.61-1.12 Lipid Profile (Trig/Chol/HDL) 05/05/2014 Triglycerides 197 mg/dL 46, 47 Cholesterol 260 mg/dL 46, 48 HDL Cholesterol 73.3 mg/dL 46, 49 LDL Cholesterol 147 mg/dL 46, 50 Comp Metabolic Panel 05/05/2014 Sodium 139 mmol/L 133-145 46 Potassium 4.4 mmol/L 3.7-5.6 46 Chloride 101 mmol/L 101-111 46 Co2 Carbon Dioxide 31 mmol/L 22-32 46 Anion Gap 7 mmol/L 2-11 46 Glucose 88 mg/dL 70-100 46 Blood Urea Nitrogen 15 mg/dL 6-24 46 Creatinine 0.69 mg/dL 0.51-0.95 46 BUN/Creatinine Ratio 21.7 High 8-20 46 Calcium 9.4 mg/dL 8.6-10.3 46 Total Protein 6.9 g/dL 6.4-8.9 46 Albumin 4.2 g/dL 3.2-5.2 46 Globulin 2.7 g/dL 2-4 46 Albumin/Globulin Ratio 1.6 1-3 46 Total Bilirubin 0.70 mg/dL 0.2-1.0 46 Alkaline Phosphatase 80 U/L 34-104 46 Alt 16 U/L 7-52 46 Ast 17 U/L 13-39 46 Egfr Non- 84.4 >60 46 Egfr 108.5 >60 46, 51 Laboratory test finding 05/05/2014 Magnesium 2.0 mg/dL 1.9-2.7 46, 52 Laboratory test finding 03/01/2014 Magnesium 1.8 mg/dL Low 1.9-2.7 Laboratory test finding 02/02/2014 Potassium 3.9 mmol/L 3.7-5.6 Magnesium 1.9 mg/dL 1.9-2.7 Creatine Kinase 24 U/L 10-223 D Dimer Quantitative < 200 ng/mL Less Than 230 53 Calcium 24HR Urine 01/23/2014 Urine Random Calcium 7.7 mg/dL 54 Urine Calcium/24HR 169.4 mg/24Hr 50-400 54 Urine Collection Time 24 54 Urine Total Volume 2200 mL 54 Pthi 01/23/2014 PTH Intact 3.1 pmol/L 1.3-9.3 54 Calcium (PTH Intact) 9.5 mg/dL 8.6-10.3 54 Laboratory test finding 01/23/2014 Calcium Ionized 4.63 mg/dL Low 4.65- 5.28 54 Laboratory test finding 01/13/2014 Potassium 4.1 mmol/L 3.7-5.6 Calcium Ionized 4.60 mg/dL Low 4.65-5.28 Lipid Profile (Trig/Chol/HDL) 11/02/2013 Triglycerides 190 mg/dL 55 Cholesterol 240 mg/dL 56 HDL Cholesterol 68.7 mg/dL 57 LDL Cholesterol 133 mg/dL 58 Liver Function Panel 11/02/2013 Total Protein 6.7 g/dL 6.4-8.9 Albumin 4.1 g/dL 3.2-5.2 Globulin 2.6 g/dL 2-4 Albumin/Globulin Ratio 1.6 1-3 Total Bilirubin 0.60 mg/dL 0.2-1.0 Direct Bilirubin 0.10 mg/dL 0.03-0.18 Indirect Bilirubin 0.5 mg/dL 0.3-1.0 Alkaline Phosphatase 68 U/L 34-104 Alt 17 U/L 7-52 Ast 18 U/L 13-39 Laboratory test finding 11/02/2013 Glucose 97 mg/dL 70-100 Lipid Profile (Trig/Chol/HDL) 05/01/2013 Triglycerides 159 mg/dL 40-200 Cholesterol 252 mg/dL High Less than 200 HDL Cholesterol 71 mg/dL High 40-60 59 Cholesterol/HDL Ratio 3.6 Average 1-4.44 LDL Cholesterol 149.2 High Less Than 100 60 Pthi 05/01/2013 PTH Intact 3.9 pmol/L 1.3-9.0 Calcium (PTH Intact) 9.0 mg/dL 8.1-9.9 Vitamin D, 25 Hydroxy 05/01/2013 25-Hydroxy Vitamin D2 <4.0 ng/mL 25-Hydroxy Vitamin D3 54 ng/mL 25-Hydroxy Vitamin D Total 54 ng/mL 61 Comp Metabolic Panel 05/01/2013 Sodium 139 mmol/L 133-145 Potassium 3.6 mmol/L 3.5-5.0 Chloride 102 mmol/L 101-111 Co2 Carbon Dioxide 29.0 mmol/L 22-32 Anion Gap 8.0 mmol/L 2-11 Glucose 101 mg/dL High 70-100 Blood Urea Nitrogen 11 mg/dL 6-24 Creatinine 0.80 mg/dL 0.50-1.40 BUN/Creatinine Ratio 13.8 8-20 Calcium 9.1 mg/dL 8.1-9.9 Total Protein 6.3 g/dL 6.2-8.1 Albumin 3.7 g/dL 3.2-5.2 Globulin 2.6 g/dL 2-4 Albumin/Globulin Ratio 1.4 1-3 Total Bilirubin 0.9 mg/dL 0.4-1.5 Alkaline Phosphatase 72 U/L 30-110 Alt 18 U/L 14-54 Ast 24 U/L 12-42 Egfr Non- 71.3 >60 Egfr 91.7 >60 62 Laboratory test finding 08/15/2012 Free T4 1.14 ng/mL 0.61-1.24 TSH (Thyroid Stimulating Horm) 5.24 miu/mL 0.34-5.60 B Type Natriuretic Peptide 23.0 pg/mL 0-100 CBC Auto Diff 07/10/2012 White Blood Count 7.3 10^3/uL 4.8-10.8 Red Blood Count 4.51 10^6/uL 4.0-5.4 Hemoglobin 13.4 g/dL 12.0-16.0 Hematocrit 41 % 35-47 Mean Corpuscular Volume 90 fL 80-97 Mean Corpuscular Hemoglobin 30 pg 27-31 Mean Corpuscular HGB Conc 33 g/dL 31-36 Red Cell Distribution Width 13 % 10.5-15 Platelet Count 290 10^3/uL 150-450 Mean Platelet Volume 9 um3 7.4-10.4 Abs Neutrophils 2.6 10^3/uL 1.5-7.7 Abs Lymphocytes 3.4 10^3/uL 1.0-4.8 Abs Monocytes 0.7 10^3/uL 0-0.8 Abs Eosinophils 0.5 10^3/uL 0-0.6 Abs Basophils 0.1 10^3/uL 0-0.2 Abs Nucleated RBC 0 10^3/uL Comp Metabolic Panel 07/10/2012 Sodium 140 mmol/L 133-145 Potassium 3.7 mmol/L 3.5-5.0 Chloride 103 mmol/L 101-111 Co2 Carbon Dioxide 31.0 mmol/L 22-32 Anion Gap 6.0 mmol/L 2-11 Glucose 100 mg/dL 70-100 Blood Urea Nitrogen 11 mg/dL 6-24 Creatinine 0.80 mg/dL 0.50-1.40 BUN/Creatinine Ratio 13.8 8-20 Calcium 9.1 mg/dL 8.1-9.9 Total Protein 6.4 GM/DL 6.2-8.1 Albumin 3.8 GM/DL 3.2-5.2 Globulin 2.6 GM/DL 2-4 Albumin/Globulin Ratio 1.5 1-3 Total Bilirubin 0.9 mg/dL 0.4-1.5 Alkaline Phosphatase 69 U/L 30-110 Alt 19 U/L 14-54 Ast 22 U/L 12-42 Egfr Non- 71.5 >60 Egfr 92.0 >60 63 Laboratory test 07/10/2012 TSH (Thyroid 6.12 MIU/ML High 0.34-5.60 64 finding Stimulating Horm) Lipid Profile 07/10/2012 Triglycerides 135 mg/dL 40-200 (Trig/Chol/HDL) Cholesterol 259 mg/dL High Less than 200 HDL Cholesterol 75 mg/dL High 40-60 65 Cholesterol/HDL Ratio 3.5 AVERAGE 1-4.44 LDL Cholesterol 157.0 mg/dL High Less Than 100 66 Manual Differential 07/10/2012 Neutrophil % 50.0 % 38-83 Band % 0 % 0-8 Lymphocytes % 36.0 % 25-47 Monocytes % 9.0 % 0-13 Eosinophils % 3.0 % 0-6 Basophil % 0 % 0-2 Reactive Lymph % 2.0 % 0-6 Metamyelocytes % 0 % 0-2 Myelocytes % 0 % 0-1 Promyelocytes % 0 % Blast % 0 % RBC Morphology Normal Normal Laboratory test finding 01/10/2012 Thyroxine Free 1.17 ng/dL 0.61-1.24 TSH 1.60 MIU/ML 0.34-5.60 Laboratory test finding 09/04/2011 Thyroxine Free 1.19 ng/dL 0.61-1.24 TSH 5.44 MIU/ML 0.34-5.60 Urinalysis W/Microscopic 04/30/2011 Ua Color YELLOW Yellow Appearance-Urine CLEAR Clear Specific [place]-Ur 1.015 1.010-1.030 Esterase-Urine NEGATIVE Negative Nitrite NEGATIVE Negative [id number] NEGATIVE Negative Protein-Urine NEGATIVE Negative PH-Urine 8.0 5-9 Blood-Urine NEGATIVE Negative Ketones-Urine NEGATIVE Negative Bilirubin-Ur NEGATIVE Negative Glucose-Urine NEGATIVE Negative WBC-Urine RARE 0-5 RBC-Urine NONE SEEN 0-2 Epith Cells-Ur SMALL None Bacteria-Urine TRACE None Amorphous Sed-U 1+ None Basic Metabolic Panel 04/30/2011 Sodium 137 mmol/L 135-145 Potassium 4.3 mmol/L 3.5-5.0 Chloride 98 mmol/L Low 101-111 Co2 (Carbon Dioxide) 29.0 mmol/L 22-32 Anion Gap 10.0 mmol/L 2-11 67 Glucose 95 mg/dL 70-100 BUN 12 mg/dL 6-24 Creatinine 0.6 mg/dL 0.50-1.40 One Over Creatinine 1.66 BUN/Creatinine Ratio 20.0 8-20 Calcium 9.6 mg/dL 8.1-9.9 eGFR Non- 100.0 > 60 eGFR 128.6 > 60 68 Laboratory test finding 04/30/2011 Thyroxine Free 1.22 ng/dL 0.61-1.24 TSH 3.26 MIU/ML 0.34-5.60 Urine Culture & 04/30/2011 Urine Culture NG [address] [facility] Panel 02/20/2011 TSH 4.61 MIU/ML 0.34-5.60 Comp Metabolic Panel 02/20/2011 Sodium 142 mmol/L 135-145 Potassium 4.0 mmol/L 3.5-5.0 Chloride 104 mmol/L 101-111 Co2 (Carbon Dioxide) 29.0 mmol/L 22-32 Anion Gap 9.0 mmol/L 2-11 70 Glucose 89 mg/dL 70-100 BUN 13 mg/dL 6-24 Creatinine 0.70 mg/dL 0.50-1.40 One Over Creatinine 1.40 BUN/Creatinine Ratio 18.6 8-20 Calcium 9.3 mg/dL 8.1-9.9 Total Protein 6.5 GM/DL 6.2-8.1 Albumin 3.9 GM/DL 3.2-5.2 Globulin 2.6 GM/DL 2-4 Albumin/Globulin Ratio 1.5 1-3 Bilirubin Total 0.8 mg/dL 0.4-1.5 71 Alkaline Phosphatase 63 U/L 30-110 Alt (SGPT) 19 U/L 14-54 Ast (Sgot) 24 U/L 12-42 eGFR Non- 83.7 > 60 eGFR 107.7 > 60 72 Lipid Profile (Trig/Chol/HDL) 02/20/2011 Triglyceride 104 mg/dL 40-200 Cholesterol 238 mg/dL High Less Than 200 73 High Density Lipoprotein 74 mg/dL High 40-60 74 Cholesterol/HDL Ratio 3.22 AVERAGE 1-4.44 Low Density Lipoprotein 143 mg/dL High Less Than 100 75 CBC Auto Diff 02/20/2011 White Blood Count 7.6 CUMM 4.8-10.8 Red Cell Count 4.36 CUMM 4.2-5.4 Hemoglobin 12.9 g/dL 12.0-16.0 Hematocrit 40 % 35-47 Mean Corpuscular Volume 92 um3 79-97 Mean Corpuscular Hemoglob 30 pg 27-31 Mean Corpuscular HGB Cone 32 g/dL 32-36 Redcell Distribution WDTH 13 % 10.5-15 Platelet Count 297 CUMM 150-450 Mean Platelet Volume 8.7 um3 7.4-10.4 76 Laboratory test finding 02/20/2011 Thyroxine 7.9 g/dL 5-12 Manual Differential 02/20/2011 Polysegmented Neutrophil 39 % 38-83 Lymphocyte 37 % 25-47 Monocyte 12 % 0-13 Eosinophil 4 % 0-6 Atypical Lymph 8 % High 0-6 Absolute Neutrophil Count 2.9 Anisocytosis SLIGHT Laboratory test finding 10/04/2010 TSH 3.21 MIU/ML 0.34-5.60 Thyroxine Free 1.13 NG/ML 0.61-1.24 Laboratory test finding 07/15/2010 Troponin-I 0.01 NG/ML 0-0.06 77 CBC With Electronic Diff 07/15/2010 White Blood Count 12.6 CUMM High 4.8- 10.8 Red Cell Count 4.71 CUMM 4.2-5.4 Hemoglobin 14.1 g/dL 12.0-16.0 Hematocrit 42 % 35-47 Mean Corpuscular Volume 90 um3 79-97 Mean Corpuscular Hemoglob 30 pg 27-31 Mean Corpuscular HGB Cone 34 g/dL 32-36 Redcell Distribution WDTH 13 % 10.5-15 Platelet Count 363 CUMM 150-450 Mean Platelet Volume 7.0 um3 Low 7.4-10.4 Gran % 59.5 % 38-83 Lymph % 28.9 % 25-47 Mononuclear % 7.9 % 1-9 Eosinophil % 3.3 % 0-6 Basophil % 0.4 % 0-2 Abs Lymphs 3.7 1.0-4.8 Abs Mononuclear 1.0 High 0-0.8 Absolute Neutrophil Count 7.5 1.5-7.7 Abs Eosinophils 0.4 0-0.6 Abs Basophils 0.1 0-0.2 Protime 07/15/2010 Inr 1.03 0.82-1.17 78 Protime 12.2 SEC 10.2-14.8 79 Laboratory test finding 07/15/2010 PTT (Aptt) 29.8 25.15-38.53 Comp Metabolic Panel 07/15/2010 Sodium 138 mmol/L 135-145 Potassium 3.6 mmol/L 3.5-5.0 Chloride 100 mmol/L Low 101-111 Co2 (Carbon Dioxide) 27.0 mmol/L 22-32 Anion Gap 11.0 mmol/L 2-11 80 Glucose 92 mg/dL 70-100 81 BUN 13 mg/dL 6-24 Creatinine 0.60 mg/dL 0.50-1.40 One Over Creatinine 1.60 BUN/Creatinine Ratio 21.7 High 8-20 Calcium 9.8 mg/dL 8.1-9.9 Total Protein 7.4 GM/DL 6.2-8.1 Albumin 4.4 GM/DL 3.2-5.2 Globulin 3.0 GM/DL 2-4 Albumin/Globulin Ratio 1.5 1-3 Bilirubin Total 1.0 mg/dL 0.4-1.5 82 Alkaline Phosphatase 80 U/L 30-110 Alt (SGPT) 21 U/L 14-54 Ast (Sgot) 25 U/L 12-42 eGFR Non- 106.6 > 60 eGFR 129.0 > 60 83 Laboratory test finding 07/15/2010 Troponin-I 0.01 NG/ML 0-0.06 84 Urinalysis 07/15/2010 Ua Color YELLOW Yellow Appearance-Urine CLEAR Clear Specific [place]-Ur 1.011 1.010-1.030 Esterase-Urine NEGATIVE Negative Nitrite NEGATIVE Negative Nhamnbsmvgyh-Bz-GIL NEGATIVE Negative Protein-Urine NEGATIVE Negative PH-Urine 8.0 5-9 Blood-Urine NEGATIVE Negative Ketones-Urine 1+ Negative Bilirubin-Ur NEGATIVE Negative Glucose-Urine NEGATIVE Negative CBC With Electronic Diff 06/29/2010 White Blood Count 9.9 CUMM 4.8-10.8 Red Cell Count 4.57 CUMM 4.2-5.4 Hemoglobin 13.7 g/dL 12.0-16.0 Hematocrit 41 % 35-47 Mean Corpuscular Volume 90 um3 79-97 Mean Corpuscular Hemoglob 30 pg 27-31 Mean Corpuscular HGB Cone 34 g/dL 32-36 Redcell Distribution WDTH 13 % 10.5-15 Platelet Count 319 CUMM 150-450 Mean Platelet Volume 7.8 um3 7.4-10.4 Gran % 41.7 % 38-83 Lymph % 44.7 % 25-47 Mononuclear % 7.0 % 1-9 Eosinophil % 6.0 % 0-6 Basophil % 0.6 % 0-2 Abs Lymphs 4.4 1.0-4.8 Abs Mononuclear 0.7 0-0.8 Absolute Neutrophil Count 4.1 1.5-7.7 Abs Eosinophils 0.6 0-0.6 Abs Basophils 0.1 0-0.2 Comp Metabolic Panel 06/29/2010 Sodium 139 mmol/L 135-145 Potassium 3.5 mmol/L 3.5-5.0 Chloride 99 mmol/L Low 101-111 Co2 (Carbon Dioxide) 31.0 mmol/L 22-32 Anion Gap 9.0 mmol/L 2-11 85 Glucose 109 mg/dL High 70-100 86 BUN 11 mg/dL 6-24 Creatinine 0.80 mg/dL 0.50-1.40 One Over Creatinine 1.20 BUN/Creatinine Ratio 13.8 8-20 Calcium 9.7 mg/dL 8.1-9.9 Total Protein 7.0 GM/DL 6.2-8.1 Albumin 4.5 GM/DL 3.2-5.2 Globulin 2.5 GM/DL 2-4 Albumin/Globulin Ratio 1.8 1-3 Bilirubin Total 0.7 mg/dL 0.4-1.5 87 Alkaline Phosphatase 62 U/L 30-110 Alt (SGPT) 22 U/L 14-54 Ast (Sgot) 26 U/L 12-42 eGFR Non- 76.5 > 60 eGFR 92.6 > 60 88 Laboratory test finding 06/29/2010 Erythrocyte Sed Rate 7 MM/HR 0-40 Thyroxine Free 1.25 NG/ML High 0.61-1.24 TSH 1.44 MIU/ML 0.34-5.60 [facility] Panel 03/27/2010 TSH 1.37 MIU/ML 0.34-5.60 Comp Metabolic Panel 03/27/2010 Sodium 141 mmol/L 135-145 Potassium 3.4 mmol/L Low 3.5-5.0 Chloride 102 mmol/L 101-111 Co2 (Carbon Dioxide) 30.0 mmol/L 22-32 Anion Gap 9.0 mmol/L 2-11 89 Glucose 95 mg/dL 70-100 90 BUN 11 mg/dL 6-24 Creatinine 0.60 mg/dL 0.50-1.40 One Over Creatinine 1.60 BUN/Creatinine Ratio 18.3 8-20 Calcium 9.1 mg/dL 8.1-9.9 91 Total Protein 6.5 GM/DL 6.2-8.1 Albumin 3.9 GM/DL 3.2-5.2 Globulin 2.6 GM/DL 2-4 Albumin/Globulin Ratio 1.5 1-3 Bilirubin Total 1.0 mg/dL 0.4-1.5 92 Alkaline Phosphatase 52 U/L 30-110 Alt (SGPT) 20 U/L 14-54 Ast (Sgot) 24 U/L 12-42 eGFR Non- 106.6 > 60 eGFR 129.0 > 60 93 Lipid Profile (Trig/Chol/HDL) 03/27/2010 Triglyceride 130 mg/dL 40-200 Cholesterol 234 mg/dL High Less Than 200 94 High Density Lipoprotein 72 mg/dL High 40-60 95 Cholesterol/HDL Ratio 3.25 AVERAGE 1-4.44 Low Density Lipoprotein 136 mg/dL High Less Than 100 96 CBC With Electronic Diff 03/27/2010 White Blood Count 6.8 CUMM 4.8-10.8 Red Cell Count 4.05 CUMM Low 4.2-5.4 Hemoglobin 12.2 g/dL 12.0-16.0 Hematocrit 36 % 35-47 Mean Corpuscular Volume 90 um3 79-97 Mean Corpuscular Hemoglob 30 pg 27-31 Mean Corpuscular HGB Cone 34 g/dL 32-36 Redcell Distribution WDTH 14 % 10.5-15 Platelet Count 290 CUMM 150-450 Mean Platelet Volume 7.7 um3 7.4-10.4 Gran % 41.0 % 38-83 Lymph % 43.7 % 25-47 Mononuclear % 8.8 % 1-9 Eosinophil % 5.7 % 0-6 Basophil % 0.8 % 0-2 Abs Lymphs 3.0 1.0-4.8 Abs Mononuclear 0.6 0-0.8 Absolute Neutrophil Count 2.8 1.5-7.7 Abs Eosinophils 0.4 0-0.6 Abs Basophils 0.1 0-0.2 Laboratory test finding 03/27/2010 Hemoglobin A1c 6.1 % High Less Than 6.0 97 Laboratory test finding 02/08/2009 Thyroxine Free 1.21 NG/ML 0.61-1.24 98 TSH 1.21 MIU/ML 0.34-5.60 Lipid Profile (Trig/Chol/HDL) 01/31/2009 Triglyceride 149 mg/dL 40-200 99 Cholesterol 235 mg/dL High Less Than 200 99, 100 High Density Lipoprotein 66 mg/dL High 40-60 99, 101 Cholesterol/HDL Ratio 3.56 AVERAGE 1-4.44 99 Low Density Lipoprotein 139 mg/dL High Less Than 100 99, 102 Laboratory test finding 01/31/2009 Glucose 91 mg/dL 70-100 99, 103 Hemoglobin A1c 6.3 % High <6.0 99, 104 Ua Stat 08/22/2008 Ua Color YELLOW Appearance-Urine CLEAR Specific [place]-Ur 1.008 Low 1.010-1.030 Esterase-Urine TRACE Negative Nitrite NEGATIVE Negative Lsbvtfjjzees-Dl-VDD NEGATIVE Negative Protein-Urine NEGATIVE Negative PH-Urine 7.0 5-9 Blood-Urine NEGATIVE Negative Ketones-Urine NEGATIVE Negative Bilirubin-Ur NEGATIVE Negative Glucose-Urine NEGATIVE Negative Laboratory test finding 08/22/2008 Troponin-I (TnI) 0.06 NG/ML 0-0.06 105 P33S 08/22/2008 Sodium 138 mmol/L 135-145 Potassium 3.3 mmol/L Low 3.5-5.0 Chloride 102 mmol/L 101-111 Co2 (Carbon Dioxide) 27.0 mmol/L 22-32 Anion Gap 9.0 mmol/L 2-11 106 Glucose 126 mg/dL High 70-100 107 BUN 13 mg/dL 6-24 Creatinine 0.60 mg/dL 0.50-1.40 One Over Creatinine 1.60 BUN/Creatinine Ratio 21.7 High 8-20 Calcium 9.5 mg/dL 8.1-9.9 108 Total Protein 6.9 GM/DL 6.2-8.1 Albumin 3.7 GM/DL 3.2-5.2 Globulin 3.2 GM/DL 2-4 Albumin/Globulin Ratio 1.2 1-3 Bilirubin Total 0.9 mg/dL 0.4-1.5 Alkaline Phosphatase 75 U/L 30-110 Alt (SGPT) 20 U/L 14-54 Ast (Sgot) 21 U/L 12-42 CBC With Electronic Diff Stat 08/22/2008 White Blood Count 12.8 CUMM High 4.8-10.8 Red Cell Count 4.88 CUMM 4.2-5.4 Hemoglobin 14.8 g/dL 12.0-16.0 Hematocrit 44 % 35-47 Mean Corpuscular Volume 90 um3 79-97 Mean Corpuscular Hemoglob 30 pg 27-31 Mean Corpuscular HGB Cone 34 g/dL 32-36 Redcell Distribution WDTH 12 % 10.5-15 Platelet Count 370 CUMM 150-450 Mean Platelet Volume 7.6 um3 7.4-10.4 Gran % 52.5 % 38-83 Lymph % 37.5 % 25-47 Mononuclear % 6.6 % 1-9 Eosinophil % 2.9 % 0-6 Basophil % 0.5 % 0-2 Abs Lymphs 4.8 1.0-4.8 Abs Mononuclear 0.8 0-0.8 Absolute Neutrophil Count 6.7 1.5-7.7 Abs Eosinophils 0.4 0-0.6 Abs Basophils 0.1 0-0.2 Urinalysis W/Microscopic 08/22/2008 Ua Color YELLOW Appearance-Urine CLEAR Specific [place]-Ur 1.008 Low 1.010-1.030 Esterase-Urine TRACE Negative Nitrite NEGATIVE Negative Jyoeuzjwhwuf-Pj-DMU NEGATIVE Negative Protein-Urine NEGATIVE Negative PH-Urine 7.0 5-9 Blood-Urine NEGATIVE Negative Ketones-Urine NEGATIVE Negative Bilirubin-Ur NEGATIVE Negative Glucose-Urine NEGATIVE Negative WBC-Urine 0-2 0-5 RBC-Urine 0-2 0-2 Mucus Urine SMALL Epith Cells-Ur FEW Bacteria-Urine TRACE CBC With Manual Diff 09/11/2007 RBC Morphology NORMAL 109 White Blood Count 6.8 CUMM 4.8-10.8 109 Absolute Neutrophil Count 2.8 109 Atypical Lymph 1 % 0-6 109 Hematocrit 43 % 35-47 109 Hemoglobin 14.4 g/dL 12.0-16.0 109 Eosenophil 7 % High 0-6 109 Lymphocyte 44 % 5-47 109 Mean Corpuscular HGB Cone 33 g/dL 32-36 109 Mean Corpuscular Hemoglob 30 pg 27-31 109 Mean Corpuscular Volume 90 um3 79-97 109 Monocyte 6 % 0-13 109 Mean Platelet Volume 9.2 um3 7.4-10.4 109 Platelet Count 277 CUMM 150-450 109 Polysegmented Neutrophil 42 % 38-83 109 Red Cell Count 4.82 CUMM 4.2-5.4 109 Redcell Distribution WDTH 13 % 10.5-15 109 Thyroxine Free 09/11/2007 Free Thyroxine 1.16 NG/ML 0.61-1.24 109, 110 Comp Metabolic Panel 09/11/2007 One Over Creatinine 1.42 109 Anion Gap 5.0 mmol/L 2-11 109, 111 Albumin/Globulin Ratio 1.6 1-3 109 Albumin 3.9 GM/DL 3.2-5.2 109 Alkaline Phosphatase 64 U/L 30-110 109 Alt (SGPT) 19 U/L 14-54 109 Ast (Sgot) 21 U/L 12-42 109 BUN 12 mg/dL 6-24 109 Calcium 9.2 mg/dL 8.7-10.2 109 Chloride 105 mmol/L 101-111 109 Co2 (Carbon Dioxide) 29.0 mmol/L 22-32 109 Globulin 2.5 GM/DL 2-4 109 Glucose 98 mg/dL 70-105 109 Potassium 4.3 mmol/L 3.5-5.0 109 Sodium 139 mmol/L 135-145 109 Bilirubin Total 0.8 mg/dL 0.4-1.5 109 Total Protein 6.4 GM/DL 6.2-8.1 109 BUN/Creatinine Ratio 17.1 8-20 109 Creatinine 0.7 mg/dL 0.5-1.4 109 Lipid Profile 09/11/2007 Cholesterol/HDL Ratio 3.45 AVERAGE 1-4.44 109 (Trig/Chol/HDL) Cholesterol 221 mg/dL High Less Than 200 109, 112 Triglyceride 157 mg/dL 40-200 109 High Density Lipoprotein 64 mg/dL High 40-60 109, 113 Low Density Lipoprotein 126 mg/dL High Less Than 100 109, 114 Laboratory test 09/11/2007 TSH 1.67 MIU/ML 0.34-5.60 109 finding Surgical Pathology 07/16/2007 Surgical Pathology 115 <SEE NOTE> 1 Retail Marketing Specialist: [id number] SEE RESULT BELOW Name: MON[place] GRIGSBY : [address]: Trip Washington III, MD Acct: [id number] Unit: [id number] AGE: 72 Location: [facility] Re09/27/17 SEX: F Status: REG REF SPEC: [id number] WANDER: 09/27/17-[address] [facility] [address]: Trip Washington III, MD REQ: [id number] RECD: 09/27/17 STATUS: HEMANT MARKS DR: Jessica David MD _ SOURCE: [facility]: ORDERED: Flu A B Request COMMENTS: [id number] Procedure Result Reported Site Rapid Influenza A B Request Final 09/27/17- 1925 ML Specimen received for Influenza A/B Molecular testing * ML - MAIN LAB ([facility]) . END OF REPORT * ML=Testing performed at Main Lab DEPARTMENT OF PATHOLOGY, [address] [place] [address] Sourav Coronel M.D. Director [facility] # [id number] 4 Because ethnic data is not always readily available, this report includes an eGFR for both -Americans and non- Americans. The National Kidney Disease Education Program (NKDEP) does not endorse the use of the MDRD equation for patients that are not between the ages of 18 and 70, are , have extremes of body size, muscle mass, or nutritional status, or are non- or non-. According to the National Kidney Foundation, irrespective of diagnosis, the stage of the disease is based on the level of kidney function: Stage Description GFR(mL/min/1.73 m(2)) 1 Kidney damage with normal or decreased GFR 90 2 Kidney damage with mild decrease in GFR 60-89 3 Moderate decrease in GFR 30-59 4 Severe decrease in GFR 15-29 5 Kidney failure <15 (or dialysis) 5 Desirable: <150 Borderline High: 150-199 High: 200-499 Very High: >500 6 Desirable: <200 Borderline High: 200-239 High: >239 7 Low: <40 Desirable: 40-60 High: >60 8 Desirable: <100 Near Optimal: 100-129 Borderline High: 130-159 High: 160-189 Very High: >189 9 Because ethnic data is not always readily available, this report includes an eGFR for both -Americans and non- Americans. The National Kidney Disease Education Program (NKDEP) does not endorse the use of the MDRD equation for patients that are not between the ages of 18 and 70, are , have extremes of body size, muscle mass, or nutritional status, or are non- or non-. According to the National Kidney Foundation, irrespective of diagnosis, the stage of the disease is based on the level of kidney function: Stage Description GFR(mL/min/1.73 m(2)) 1 Kidney damage with normal or decreased GFR 90 2 Kidney damage with mild decrease in GFR 60-89 3 Moderate decrease in GFR 30-59 4 Severe decrease in GFR 15-29 5 Kidney failure <15 (or dialysis) 10 FASTING 10 HOUR 11 FASTING 10 HOUR 12 FASTING 10 HOUR 13 FASTING 10 HOUR 14 FASTING 10 HOUR 15 FASTING 10 HOUR 16 Because ethnic data is not always readily available, this report includes an eGFR for both -Americans and non- Americans. The National Kidney Disease Education Program (NKDEP) does not endorse the use of the MDRD equation for patients that are not between the ages of 18 and 70, are , have extremes of body size, muscle mass, or nutritional status, or are non- or non-. According to the National Kidney Foundation, irrespective of diagnosis, the stage of the disease is based on the level of kidney function: Stage Description GFR(mL/min/1.73 m(2)) 1 Kidney damage with normal or decreased GFR 90 2 Kidney damage with mild decrease in GFR 60-89 3 Moderate decrease in GFR 30-59 4 Severe decrease in GFR 15-29 5 Kidney failure <15 (or dialysis) 17 Therapeutic target for the treatment of diabetes Mellitus patients is <7% HBA1C, and in selective patients <6.0%.Please refer to [place] [employer] Diabetic care guidelines for further information. 18 Because ethnic data is not always readily available, this report includes an eGFR for both -Americans and non- Americans. The National Kidney Disease Education Program (NKDEP) does not endorse the use of the MDRD equation for patients that are not between the ages of 18 and 70, are , have extremes of body size, muscle mass, or nutritional status, or are non- or non-. According to the National Kidney Foundation, irrespective of diagnosis, the stage of the disease is based on the level of kidney function: Stage Description GFR(mL/min/1.73 m(2)) 1 Kidney damage with normal or decreased GFR 90 2 Kidney damage with mild decrease in GFR 60-89 3 Moderate decrease in GFR 30-59 4 Severe decrease in GFR 15-29 5 Kidney failure <15 (or dialysis) 19 Therapeutic target for the treatment of diabetes Mellitus patients is <7% HBA1C, and in selective patients <6.0%.Please refer to [place] [employer] Diabetic care guidelines for further information. 20 PT IS FASTING 21 Desirable <150 Borderline high 150-199 High 200-499 Very High >500 22 Desirable <200 Borderline high 200-239 High >239 23 Low <40 Desirable: 40-60 High: >60 24 Desirable: <100 mg/dL Near Optimal: 100-129 mg/dL Borderline High: 130-159 mg/dL High: 160-189 mg/dL Very High: >189 mg/dL 25 PT IS FASTING 26 PT IS FASTING 27 Therapeutic target for the treatment of diabetes Mellitus patients is <7% HBA1C, and in selective patients <6.0%.Please refer to [place] [employer] Diabetic care guidelines for further information. 28 Normal Range 180 to 914 Indeterminate Range 145 to 180 Deficient Range <145 29 with immunofixation Copy Result to: JESSICA DAVID ([id number]) 30 Test Performed by: [place] [address] Yard Spotter: Jerel Marcelino II, M.D., Ph.D. 31 with immunofixation Copy Result to: JESSICA DAVID ([id number]) 32 with immunofixation Copy Result to: JESSICA DAVID ([id number]) 33 Acute inflammation: >10.00 34 RESULT: No apparent monoclonal protein on serum electrophoresis. Test Performed by: [place] [address] Yard Spotter: Jerel Marcelino II, M.D., Ph.D. 35 Test Performed by: [place] [address] Yard Spotter: Jerel Marcelino II, M.D., Ph.D. 36 REFERENCE VALUE <1.0 (Negative) 37 REFERENCE VALUE <1.0 (Negative) Test Performed by: [place] [address] Yard Spotter: Jerel Marcelino II, M.D., Ph.D. 38 Therapeutic target for the treatment of diabetes Mellitus patients is <7% HBA1C, and in selective patients <6.0%.Please refer to [place] [employer] Diabetic care guidelines for further information. 39 Because ethnic data is not always readily available, this report includes an eGFR for both -Americans and non- Americans. The National Kidney Disease Education Program (NKDEP) does not endorse the use of the MDRD equation for patients that are not between the ages of 18 and 70, are , have extremes of body size, muscle mass, or nutritional status, or are non- or non-. According to the National Kidney Foundation, irrespective of diagnosis, the stage of the disease is based on the level of kidney function: Stage Description GFR(mL/min/1.73 m(2)) 1 Kidney damage with normal or decreased GFR 90 2 Kidney damage with mild decrease in GFR 60-89 3 Moderate decrease in GFR 30-59 4 Severe decrease in GFR 15-29 5 Kidney failure <15 (or dialysis) 40 SEE RESULT BELOW Name: MONTANA GRIGSBY : [address]: Jessica aDvid MD Acct: [id number] Unit: [id number] AGE: 69 Location: [facility] Re05/19/15 SEX: F Status: REG REF SPEC: [id number] WANDER: 05/19/[address]: Jessica David MD REQ: [id number] RECD: 05/19/15 STATUS: RES _ [facility]: Cassidy,Yeast DNA, Trich DNA Procedure Result Verified Site Gardnerella/Yeast: Vaginal DNA Final 05/20/15- 1052 ML Organism 1 POSITIVE GARDNERELLA Organism 2 Negative Chana The presence of G. vaginalis, although suggestive, is not diagnostic for bacterial vaginosis. Results should be interpreted in conjuction with other clinical and laboratory data available. Women with vaginal discharge should be evaluated for risk factors of cervicitis and pelvic inflammatory disease, toxic shock syndrome (S.aureus), and if present, evaluated for organisms not included in this assay such as N. gonorrhoeae, C. trachomatis, Mobiluncus, Mycoplasma and/or Prevotella. Mixed infections may occur. The performance of this test on patient specimens collected during or immediately after antimicrobial therapy is unknown. The presence or absence of Chana species, or G. vaginalis cannot be used as a test for therapeutic success or failure. Trichomonas: Vaginal DNA Probe PENDING * ML - MAIN LAB ([facility]) . END OF REPORT * ML=Testing performed at Main Lab DEPARTMENT OF PATHOLOGY, [address] [place] [address] Sourav Coronel M.D. Director [facility] # [id number] 41 SEE RESULT BELOW Name: MONTANA GRIGSBY : [address]: Jessica David MD Acct: [id number] Unit: [id number] AGE: 69 Location: [facility] Re05/19/15 SEX: F Status: REG REF SPEC: [id number] WANDER: 05/19/[address] [facility] [address]: Jessica David MD REQ: [id number] RECD: 05/19/15 STATUS: COMP _ SOURCE: VAGINAL SPDESC: ORDERED: Cassidy,Yeast DNA, Trich DNA Procedure Result Verified Site Gardnerella/Yeast: Vaginal DNA Final 05/20/15- 1052 ML Organism 1 POSITIVE GARDNERELLA Organism 2 Negative Chana The presence of G. vaginalis, although suggestive, is not diagnostic for bacterial vaginosis. Results should be interpreted in conjuction with other clinical and laboratory data available. Women with vaginal discharge should be evaluated for risk factors of cervicitis and pelvic inflammatory disease, toxic shock syndrome (S.aureus), and if present, evaluated for organisms not included in this assay such as N. gonorrhoeae, C. trachomatis, Mobiluncus, Mycoplasma and/or Prevotella. Mixed infections may occur. The performance of this test on patient specimens collected during or immediately after antimicrobial therapy is unknown. The presence or absence of Chana species, or G. vaginalis cannot be used as a test for therapeutic success or failure. Trichomonas: Vaginal DNA Probe Final 05/20/15- 1053 ML Organism 1 Negative Trichomonas CONTINUED ON NEXT PAGE * ML=Testing performed at Main Lab DEPARTMENT OF PATHOLOGY, [address] [place] [address] Sourav Coronel M.D. Director [facility] # [id number] Patient: MONTANA GRIGSBY [id number] (Continued) Specimen: [id number] Collected: 05/19/15 Received: 05/19/15-1630 (Continued) Procedure Result Verified Site Trichomonas: Vaginal DNA Probe Final (continued) 05/20/151052 The presence or absence of T. vaginalis cannot be used as a test for therapeutic success or failure. * ML - MAIN LAB ([facility]) . END OF REPORT * ML=Testing performed at Main Lab DEPARTMENT OF PATHOLOGY, [address] [place] [address] Sourav Coronel M.D. Director [facility] # [id number] 42 Desirable <150 Borderline high 150-199 High 200-499 Very High >500 43 Desirable <200 Borderline high 200-239 High >239 44 Low <40 Desirable: 40-60 High: >60 45 Desirable: <100 mg/dL Near Optimal: 100-129 mg/dL Borderline High: 130-159 mg/dL High: 160-189 mg/dL Very High: >189 mg/dL 46 FASTING 47 Desirable <150 Borderline high 150-199 High 200-499 Very High >500 48 Desirable <200 Borderline high 200-239 High >239 49 Low <40 Desirable: 40-60 High: >60 50 Desirable <100 Near Optimal 100-129 Borderline high 130-159 High 160-189 Very High >189 51 Because ethnic data is not always readily available, this report includes an eGFR for both -Americans and non- Americans. The National Kidney Disease Education Program (NKDEP) does not endorse the use of the MDRD equation for patients that are not between the ages of 18 and 70, are , have extremes of body size, muscle mass, or nutritional status, or are non- or non-. According to the National Kidney Foundation, irrespective of diagnosis, the stage of the disease is based on the level of kidney function: Stage Description GFR(mL/min/1.73 m(2)) 1 Kidney damage with normal or decreased GFR 90 2 Kidney damage with mild decrease in GFR 60-89 3 Moderate decrease in GFR 30-59 4 Severe decrease in GFR 15-29 5 Kidney failure <15 (or dialysis) 52 FASTING 53 Please note: The following may produce a false positive D Dimer test: - Rheumatoid factor greater than 60 IU/ml - Plasma hemoglobin greater than 0.05 gm/dl - Bilirubin greater than 50 mg/dl - Lipids greater than 1000 mg/dl - FDP greater than 20 ug/ml 54 Collected from 01/22/14 0600 through 01/23/14 0535. 55 Desirable <150 Borderline high 150-199 High 200-499 Very High >500 56 Desirable <200 Borderline high 200-239 High >239 57 Low <40 Desirable: 40-60 High: >60 58 Desirable <100 Near Optimal 100-129 Borderline high 130-159 High 160-189 Very High >189 59 HDL Interpretation: Undesirable: High Risk: Less than 40 mg/dL Desirable: Low Risk: Greater than 60 mg/dL 60 LDL Interpretation: Low Risk Optimal Level: LDL Less than 100 mg/dL Near or Above Optimal: LDL 100-129 mg/dL Borderline High Risk: LDL 130-159 mg/dL High Risk: LDL 160-189 mg/dL Very High Risk: LDL Greater than 189 mg/dL 61 Interpretation: 51-80 (increased risk of hypercalciuria) -- REFERENCE VALUE -- 25-HYDROXY D TOTAL (D2+D3) Optimum levels in the healthy population are 20-50, patients with bone disease may benefit from higher levels within this range. Test Performed by: [address] [address] Yard Spotter: Se Mcfarland III, M.D. 62 Because ethnic data is not always readily available, this report includes an eGFR for both -Americans and non- Americans. The National Kidney Disease Education Program (NKDEP) does not endorse the use of the MDRD equation for patients that are not between the ages of 18 and 70, are , have extremes of body size, muscle mass, or nutritional status, or are non- or non-. According to the National Kidney Foundation, irrespective of diagnosis, the stage of the disease is based on the level of kidney function: Stage Description GFR(mL/min/1.73 m(2)) 1 Kidney damage with normal or decreased GFR 90 2 Kidney damage with mild decrease in GFR 60-89 3 Moderate decrease in GFR 30-59 4 Severe decrease in GFR 15-29 5 Kidney failure <15 (or dialysis) 63 Because ethnic data is not always readily available, this report includes an eGFR for both -Americans and non- Americans. The National Kidney Disease Education Program (NKDEP) does not endorse the use of the MDRD equation for patients that are not between the ages of 18 and 70, are , have extremes of body size, muscle mass, or nutritional status, or are non- or non-. According to the National Kidney Foundation, irrespective of diagnosis, the stage of the disease is based on the level of kidney function: Stage Description GFR(mL/min/1.73 m(2)) 1 Kidney damage with normal or decreased GFR 90 2 Kidney damage with mild decrease in GFR 60-89 3 Moderate decrease in GFR 30-59 4 Severe decrease in GFR 15-29 5 Kidney failure <15 (or dialysis) 64 FASTING 65 HDL Interpretation: Undesirable: High Risk: Less than 40 MG/DL Desirable: Low Risk: Greater than 60 MG/DL 66 LDL Interpretation: Low Risk Optimal Level: LDL Less than 100 MG/DL Near or Above Optimal: LDL 100-129 MG/DL Borderline High Risk: LDL 130-159 MG/DL High Risk: LDL 160-189 MG/DL Very High Risk: LDL Greater than 189 MG/DL 67 Anion gap measurement may be of limited value in the presence of any alkalosis, especially in a combined acid base disorder. . 68 Because ethnic data is not always readily available, this report includes an eGFR for both -Americans and non- Americans. The National Kidney Disease Education Program (NKDEP) does not endorse the use of the MDRD equation for patients that are not between the ages of 18 and 70, are , have extremes of body size, muscle mass, or nutritional status, or are non- or non-. According to the National Kidney Foundation, irrespective of diagnosis, the stage of the disease is based on the level of kidney function: Stage Description GFR(mL/min/1.73 m(2)) 1 Kidney damage with normal or decreased GFR 90 2 Kidney damage with mild decrease in GFR 60-89 3 Moderate decrease in GFR 30-59 4 Severe decrease in GFR 15-29 5 Kidney failure <15 (or dialysis) 69 FINAL: NO GROWTH DAY 2 (<1,000 CFU/mL) 70 Anion gap measurement may be of limited value in the presence of any alkalosis, especially in a combined acid base disorder. . 71 A metabolite of Naproxen, O-desmethylnaproxen, has been shown to interfere with the [place] method for measuring total bilirubin. Samples from patients who have taken Naproxen have shown spurious elevation in total bilirubin levels. 72 Because ethnic data is not always readily available, this report includes an eGFR for both -Americans and non- Americans. The National Kidney Disease Education Program (NKDEP) does not endorse the use of the MDRD equation for patients that are not between the ages of 18 and 70, are , have extremes of body size, muscle mass, or nutritional status, or are non- or non-. According to the National Kidney Foundation, irrespective of diagnosis, the stage of the disease is based on the level of kidney function: Stage Description GFR(mL/min/1.73 m(2)) 1 Kidney damage with normal or decreased GFR 90 2 Kidney damage with mild decrease in GFR 60-89 3 Moderate decrease in GFR 30-59 4 Severe decrease in GFR 15-29 5 Kidney failure <15 (or dialysis) 73 CHOLESTEROL INTERPRETATION: Desirable: Less than 200 MG/DL Borderline-High Risk: 200-239 MG/DL High-Risk: 240 MG/DL and over 74 HDL INTERPRETATION: Undesirable: High Risk: Less than 40 MG/DL Desirable: Low Risk: Greater than 60 MG/DL 75 LDL INTERPRETATION: Low Risk Optimal Level: LDL Less than 100 MG/DL Near or Above Optimal: LDL 100-129 MG/DL Borderline High Risk: LDL 130-159 MG/DL High Risk: LDL 160-189 MG/DL Very High Risk: LDL Greater than 189 MG/DL 76 Neutropenia % Lymphocytosis % 77 New Reference Range and Interpretation effective 05/15/2002 TnI (ng/ml) INTERPRETATION Less Than 0.06 ng/mL NOT SUPPORTIVE OF DIAGNOSIS OF [place] 0.06 - 0.50 ng/ml INDETERMINATE: SUGGEST SERIAL STUDIES IF CLINICALLY INDICATED. Greater than 0.5 ng/mL CONSISTENT WITH DIAGNOSIS OF [place] . 78 Recommended INR for Patients on Oral Anticoagulants Prophylaxis 2.0 - 3.0 Treatment of thrombosis 2.0 - 3.0 Prevention of embolism 2.0 - 3.0 Prevention of embolism from prosthetic heart valves 2.5 - 3.5 79 DIAGNOSIS,TREATMENT,AND THERAPY MUST BE BASED ON THE INR VALUE ALONE. 80 Anion gap measurement may be of limited value in the presence of any alkalosis, especially in a combined acid base disorder. . 81 Note change in reference range as of 04/01/08. The change was based on recommendations from the [place] [employer]. 82 A metabolite of Naproxen, O-desmethylnaproxen, has been shown to interfere with the [place] method for measuring total bilirubin. Samples from patients who have taken Naproxen have shown spurious elevation in total bilirubin levels. 83 Because ethnic data is not always readily available, this report includes an eGFR for both -Americans and non- Americans. The National Kidney Disease Education Program (NKDEP) does not endorse the use of the MDRD equation for patients that are not between the ages of 18 and 70, are , have extremes of body size, muscle mass, or nutritional status, or are non- or non-. According to the National Kidney Foundation, irrespective of diagnosis, the stage of the disease is based on the level of kidney function: Stage Description GFR(mL/min/1.73 m(2)) 1 Kidney damage with normal or decreased GFR 90 2 Kidney damage with mild decrease in GFR 60-89 3 Moderate decrease in GFR 30-59 4 Severe decrease in GFR 15-29 5 Kidney failure <15 (or dialysis) 84 New Reference Range and Interpretation effective 05/15/2002 TnI (ng/ml) INTERPRETATION Less Than 0.06 ng/mL NOT SUPPORTIVE OF DIAGNOSIS OF [place] 0.06 - 0.50 ng/ml INDETERMINATE: SUGGEST SERIAL STUDIES IF CLINICALLY INDICATED. Greater than 0.5 ng/mL CONSISTENT WITH DIAGNOSIS OF [place] . 85 Anion gap measurement may be of limited value in the presence of any alkalosis, especially in a combined acid base disorder. . 86 Note change in reference range as of 04/01/08. The change was based on recommendations from the [place] [employer]. 87 A metabolite of Naproxen, O-desmethylnaproxen, has been shown to interfere with the [place] method for measuring total bilirubin. Samples from patients who have taken Naproxen have shown spurious elevation in total bilirubin levels. 88 Because ethnic data is not always readily available, this report includes an eGFR for both -Americans and non- Americans. The National Kidney Disease Education Program (NKDEP) does not endorse the use of the MDRD equation for patients that are not between the ages of 18 and 70, are , have extremes of body size, muscle mass, or nutritional status, or are non- or non-. According to the National Kidney Foundation, irrespective of diagnosis, the stage of the disease is based on the level of kidney function: Stage Description GFR(mL/min/1.73 m(2)) 1 Kidney damage with normal or decreased GFR 90 2 Kidney damage with mild decrease in GFR 60-89 3 Moderate decrease in GFR 30-59 4 Severe decrease in GFR 15-29 5 Kidney failure <15 (or dialysis) 89 Anion gap measurement may be of limited value in the presence of any alkalosis, especially in a combined acid base disorder. . 90 Note change in reference range as of 04/01/08. The change was based on recommendations from the [place] [employer]. 91 Please note change in reference range effective 08 . 92 A metabolite of Naproxen, O-desmethylnaproxen, has been shown to interfere with the [place] method for measuring total bilirubin. Samples from patients who have taken Naproxen have shown spurious elevation in total bilirubin levels. 93 Because ethnic data is not always readily available, this report includes an eGFR for both -Americans and non- Americans. The National Kidney Disease Education Program (NKDEP) does not endorse the use of the MDRD equation for patients that are not between the ages of 18 and 70, are , have extremes of body size, muscle mass, or nutritional status, or are non- or non-. According to the National Kidney Foundation, irrespective of diagnosis, the stage of the disease is based on the level of kidney function: Stage Description GFR(mL/min/1.73 m(2)) 1 Kidney damage with normal or decreased GFR 90 2 Kidney damage with mild decrease in GFR 60-89 3 Moderate decrease in GFR 30-59 4 Severe decrease in GFR 15-29 5 Kidney failure <15 (or dialysis) 94 CHOLESTEROL INTERPRETATION: Desirable: Less than 200 MG/DL Borderline-High Risk: 200-239 MG/DL High-Risk: 240 MG/DL and over 95 HDL INTERPRETATION: Undesirable: High Risk: Less than 40 MG/DL Desirable: Low Risk: Greater than 60 MG/DL 96 LDL INTERPRETATION: Low Risk Optimal Level: LDL Less than 100 MG/DL Near or Above Optimal: LDL 100-129 MG/DL Borderline High Risk: LDL 130-159 MG/DL High Risk: LDL 160-189 MG/DL Very High Risk: LDL Greater than 189 MG/DL 97 THERAPEUTIC TARGET FOR THE TREATMENT OF DIABETES MELLITUS PATIENTS IS <7% HBA1C, AND IN SELECTIVE PATIENTS <6.0%. PLEASE REFER TO [place] [employer] DIABETIC CARE GUIDELINES FOR FURTHER INFORMATION. 98 PLEASE NOTE NEW REFERENCE RANGES. 99 FASTING 100 CHOLESTEROL INTERPRETATION: Desirable: Less than 200 MG/DL Borderline-High Risk: 200-239 MG/DL High-Risk: 240 MG/DL and over 101 HDL INTERPRETATION: Undesirable: High Risk: Less than 40 MG/DL Desirable: Low Risk: Greater than 60 MG/DL 102 LDL INTERPRETATION: Low Risk Optimal Level: LDL Less than 100 MG/DL Near or Above Optimal: LDL 100-129 MG/DL Borderline High Risk: LDL 130-159 MG/DL High Risk: LDL 160-189 MG/DL Very High Risk: LDL Greater than 189 MG/DL 103 Note change in reference range as of 04/01/08. The change was based on recommendations from the [place] [employer]. 104 THERAPEUTIC TARGET FOR THE TREATMENT OF DIABETES MELLITUS PATIENTS IS <7% HBA1C, AND IN SELECTIVE PATIENTS <6.0%. PLEASE REFER TO [place] DIABETIC CARE GUIDELINES FOR FURTHER INFORMATION. 105 New Reference Range and Interpretation effective 05/15/02 TnI (ng/ml) INTERPRETATION <0.06 ng/ml NOT SUPPORTIVE OF DIAGNOSIS OF [place] 0.06 - 0.50 ng/ml INDETERMINATE: SUGGEST SERIAL STUDIES IF CLINICALLY INDICATED. > 0.5 ng/ml CONSISTENT WITH DIAGNOSIS OF [place] . 106 Anion gap measurement may be of limited value in the presence of any alkalosis, especially in a combined acid base disorder. . 107 Note change in reference range as of 04/01/08. The change was based on recommendations from the [place] [employer]. 108 Please note change in reference range effective 08 . 109 PATIENT MAY HAVE RESULTS PER DOCTOR'S AUTHORIZATION. Questions regarding this report should be directed to your doctor. 110 PLEASE NOTE NEW REFERENCE RANGES. 111 Anion gap measurement may be of limited value in the presence of any alkalosis, especially in a combined acid base disorder. . 112 Classification: Borderline High . 113 Classification: High . 114 CALCULATED LDL APPROXIMATES THE VALUE OF A DIRECT LDL MEASUREMENT. Classification: Near or above optimal . 115 ----- RUN DATE: 07/17/07 [facility] NMI LIVE PAGE 1 RUN TIME: 1653 Specimen Inquiry RUN USER: INTERFACE [id number] [place] GRIGSBY 61/F <REG REF 07/16> ([id number]) ARNAUD Calhoun MD,Mehul Us -- Specimen: [id number] SOUT Spec Date: 07/16/[address]: Sudheer vargas MD Spec Type: SURGICAL P Received: 07/16/07-9056 Copies to: Trip [place] III, MD SPECIMEN BIOPSY POLYP AT 10 CM. HISTORY POST-OP DIAGNOSIS: Small polyp CLINICAL INFORMATION: Patient with change in bowel habit, distant family history of colon carcinoma (paternal Grandmother); siblings and mother - polyps GROSS DESCRIPTION The specimen is received in formalin labelled [place] Grigsby, Biopsy Polyp at 10 cm., and consists of a hull, soft tissue fragment measuring 0.3 x 0.2 x 0.1 cm. Submitted entirely, one cassette. DIAGNOSIS Colon, polyp at 10 cm., biopsy - Hyperplastic polyp. Signed Electronically by: SOURAV CORONEL MD 07/17/07 1652 -- -- DEPARTMENT OF PATHOLOGY, [address] [place] [address] [facility] Permit #[id number] Sourav Coronel M.D. Director of [employer] -- Procedures Date CPT Code Description Status 10/07/2017 11104 Admin & Interp Of Health Risk Assessment w/ Patient Completed 07/19/2017 Mammogram Completed 04/11/201706457 Inject Tendon Sheath Or Ligament Aponeurosis Eg Plantar Completed Fascia 01/08/2017 Mammogram Completed 11/14/2016 06401 Destruction Of Benign Lesions Any Method 1-14 lesions Completed 07/24/2016 47909 EKG Tracing & Interpretation Completed 07/09/2016 Mammogram Completed 11/14/2015 52218 Inject/Drain Joint/Bursa Major Completed 08/16/2015 96426 Nerve Conduction 05-06 Studies Completed 08/16/2015 87156 Needle Electromyography Each Extremity W/Related Completed Paraspinal Areas 07/05/2015 Mammogram Completed 07/05/2015 Bone Mineral Density Test Completed 03/24/2015 Colonoscopy Completed 11/09/2014 35444 Nerve Conduction 03-04 Studies Completed 11/09/2014 52352 Needle Electromyography Each Extremity W/Related Completed Paraspinal Areas 04/21/2014 58369 Inject Tendon Sheath Or Ligament Aponeurosis Eg Plantar Completed Fascia 01/13/2014 33728 EKG Tracing & Interpretation Completed 12/09/2013 42620 Inject Tendon Sheath Or Ligament Aponeurosis Eg Plantar Completed Fascia 06/12/2013 13162 Xray Knee 3 Views Completed 07/29/2012 85725 Holter Monitor Review (24 hr)dr aguilar & katiana Completed only 09/04/2011 55231 EKG Tracing & Interpretation Completed 10/19/2009 10319 Noninvasive Ear Or Pulse Oximetry For Oxygen Saturation Completed 09/26/2009 13506 Spirometry Incl Graphic Record, Timed Expiratory Flow Completed Rate 09/15/2007 04354 Stress Test Supervsn W/Out I/R Completed 09/15/2007 74251 Stress Test Supervsn W/Out I/R Completed 09/15/2007 63547 Treadmill Interp/Report Only Completed 09/10/2007 74390 EKG Tracing & Interpretation Completed 09/10/2007 18120 EKG Tracing & Interpretation Completed 07/16/2007 Colonoscopy Completed 02/18/2006 64200 Color Doppler Completed 02/18/2006 67179 Pulse Doppler & Continuous Wave Completed 02/18/2006 02296 Pulse Doppler & Continuous Wave Completed 02/18/2006 88455 Echocardiogram Completed 06/04/2005 Colonoscopy Completed Encounters Type Date Location Provider CPT E/M Dx Office Visit 11/14/2017 8:00a [facility] [place] [address] L82.1 L57.0 D22.5 L23.9 Office Visit 10/07/2017 10:30a [facility] Internal Medicine Jessica David M.D. 74037 R05 - [place] Office Visit 09/27/2017 11:40a [facility] Internal Medicine Trip [place] 67087 J20.9 - [place] Office Visit 07/25/2017 8:50a [facility] Internal Medicine Jessica David M.D. 03178 K21.9 - Van E03.9 R10.2 M51.36 Z23 Z01.411 Office Visit 05/27/2017 10:30a [facility] Internal Medicine Jessica David M.D. 43651 L29.8 - [place] E03.9 Office Visit 04/11/2017 9:00a [facility] Jinny Person, 68914 M65.321 Of [place] Office Visit 04/10/2017 8:30a [facility] Internal Medicine Jessica David 35557 M79.604 - [place] E03.9 R73.01 M79.644 Office Visit 11/14/2016 8:00a [facility] [place] [address] L57.0 L30.9 L82.1 L82.0 R58 L53.8 Z78.9 Office Visit 07/24/2016 8:30a [facility] Internal Medicine Jessica David 75900 Z00.00 - [place] M81.0 I10 R73.01 E03.9 Office Visit 04/04/2016 8:50a [facility] Internal Medicine Jesisca David M.D. 76261 R35.0 - Van N39.46 Office Visit 03/05/2016 1:40p [facility] Internal [place] Cés[place] [address] J01.10 - [place] Office Visit 01/24/2016 8:30a [facility] Internal Medicine Jessica David 23432 R73.01 - [place] M51.17 Office Visit 01/03/2016 10:30a [facility] [place] [address] G60.9 Of [facility] M54.17 Office Visit 12/20/2015 2:20p [facility] Internal Medicine Jessica David 24016 R59.0 - [place] Office Visit 11/25/2015 2:30p [facility] Of Jacinda Winter M.D. 59022 M25.552 C.M.A. M70.62 M16.12 Office Visit 11/14/2015 2:30p [facility] Of Jacinda Winter M.D. 78101 M25.552 C.M.A. M70.62 M16.12 Office Visit 10/24/2015 10:10a [facility] Internal Medicine Jessica David 02681 R73.01 - [place] M81.8 K21.9 Office Visit 09/12/2015 2:30p [facility] [place] [address] G60.9 Of [facility] M54.17 Office Visit 09/08/2015 11:40a [facility] Internal [place] Cés[place] [address] J01.10 - [place] Office Visit 07/13/2015 10:50a [facility] Internal Medicine Jessica David 79670 M81.8 - [place] J01.90 E03.9 Office Visit 07/06/2015 3:00p [facility] [place] [address] M54.17 Services Of [facility] Office Visit 06/17/2015 11:20a [facility] Of Michael Benito 98263 G57.81 C.MJun MPamela Office Visit 06/01/2015 2:20p [facility] Of Michael Benito 30668 G57.81 C.MJun Gaspar M25.371 Office Visit 05/19/2015 10:30a [facility] Internal Medicine Jessica David M.D. 60010 J30.1 - [place] E78.0 M25.571 N89.8 Z23 Office Visit 12/08/2014 8:00a [facility] Of Mirza Culver M.D. 22389 355.8 C.M.A. Office Visit 11/04/2014 9:50a [facility] Internal Medicine Jessica David M.D. 80285 782.0 - [place] Office Visit 09/21/2014 12:10p [facility] Internal Medicine Jessica David M.D. 35443 244.9 - [place] 564.00 782.0 380.4 Office Visit 05/13/2014 10:10a [facility] Internal Medicine Jessica David M.D. 56056 272.0 - [place] 611.79 784.91 112.9 Office Visit 04/21/2014 9:30a [facility] Of Mirza Culver 08561 726.61 C.MJun Gaspar Office Visit 02/03/2014 9:50a [facility] Internal Medicine Jessica David 01676 922.1 - [place] 847.2 275.2 276.8 Office Visit 01/20/2014 12:10p [facility] Internal Medicine Jessica David M.D. 97462 847.2 - [place] 276.8 275.41 Office Visit 01/13/2014 2:30p [facility] Internal Medicine Jessica David 10659 794.31 - [place] 276.8 847.2 Office Visit 12/09/2013 11:15a [facility] Of Mirza Culver 68658 726.61 [place] 726.61 Office Visit 11/12/2013 9:50a [facility] Internal Medicine Jessica David M.D. 10470 272.0 - [place] 786.2 V16.49 Office Visit 10/28/2013 2:00p [facility] Mirza Culver M.D. 71166 727.00 Of [place] Office Visit 10/16/2013 1:15p [facility] Alberto Marcano 37429 836.0 Of Ladan Ferrell Office Visit 09/11/2013 9:30a [facility] Alberto Marcano 61877 727.00 Of Ladan Ferrell Office Visit 06/12/2013 2:00p [facility] Mirza Culver M.D. 93708 726.61 Of [facility] 717.7 719.46 Office Visit 06/10/2013 10:10a [facility] Internal Medicine Jessica David M.D. 93595 848.8 - [place] Office Visit 05/14/2013 9:50a [facility] Internal Medicine Jessica David M.D. 60447 272.0 - [place] 786.2 726.69 Office Visit 04/30/2013 11:10a [facility] Internal Medicine Jessica David M.D. 56311 V70.0 - [place] 272.0 786.2 V70.0 V41.2 733.90 V04.81 Office Visit 03/05/2013 9:50a [facility] Internal Medicine Jessica David 09010 726.69 - [place] 847.0 Office Visit 08/14/2012 3:00p [facility] Internal Medicine Trip [place] 92051 785.1 - [place] 244.1 786.09 Office Visit 07/09/2012 1:00p [facility] Internal Medicine [facility], 36552 785.1 - [place] Cook.Alireza 401.9 244.1 272.0 Office Visit 05/29/2012 9:20a [facility] Internal Medicine [facility], 93081 709.9 - [place] Office Visit 01/09/2012 2:40p [facility] Internal Medicine [facility], 51747 V72.81 - [place] 366.9 401.9 724.2 244.1 Office Visit 09/04/2011 9:40a [facility] Internal Medicine [facility], 50286 785.1 - [place] Cook.Alireza v72.60 Office Visit 04/30/2011 10:40a DO Not Use [facility] At [facility], 09673 788.41 [place] M.D. 564.00 244.1 724.2 V04.81 Office Visit 01/29/2011 1:40p DO Not Use [facility] At [facility], 09487 782.7 [place] M.D. Office Visit 10/04/2010 10:00a DO Not Use [facility] At [facility], 11650 386.19 [place] M.D. Office Visit 07/25/2010 11:00a DO Not Use [facility] At [facility], 82529 780.4 [place] M.D. 465.9 Office Visit 06/29/2010 1:40p DO Not Use [facility] At [facility], 98817 783.21 [place] M.D. V03.82 V04.89 Office Visit 02/20/2010 1:20p DO Not Use [facility], 50419 466.0 [place] M.D. Office Visit 01/24/2010 1:40p DO Not Use [facility] At [facility], 34514 729.92 [place] M.D. Office Visit 10/19/2009 11:20a DO Not Use [facility], 89588 472.0 [place] M.D. 786.2 Office Visit 09/30/2009 9:40a DO Not Use [facility] At [facility], 32237 786.2 [place] M.D. Office Visit 09/26/2009 1:20p DO Not Use [facility], 93494 786.2 [facility]2009 4:00p DO Not Use [facility], 87005 466.0 [facility] 07/20/2009 2:15p DO Not Use [facility], 55801 401.1 [facility] 272.0 790.21 530.81 709.9 Office Visit 02/08/2009 2:30p [facility], 70257 272.0 [facility]9 724.2 Office Visit 10/14/2008 2:00p [facility], 72739 724.2 [facility].D. Office Visit 08/02/2008 3:00p [facility], 10806 401.1 [facility].D. 244.9 530.81 V72.81 Office Visit 05/17/2008 2:00p [facility], 59745 461.9 [facility] 401.1 719.45 V04.81 Office Visit 04/05/2008 3:30p [facility], 23988 724.2 [facility].D. 401.1 Office Visit 09/23/2007 2:00p [facility], 79704 786.50 [facility].D. 401.1 Office Visit 09/10/2007 3:30p [facility], 67814 786.50 [facility] Office Visit 05/13/2007 11:00a [facility], 93029 473.9 [facility].D. 719.41 786.2 Office Visit 02/24/2007 3:00p [facility], 36318 472.0 [facility].D. V06.1 Plan of Care Future Appointment(s):11/17/2018 9:00 am - Beto Moran MD at [facility] Shjowlqbezo79/04/2018 8:30 am - Jessica David M.D. at [facility] Internal Medicine - Censabljw86/30/2018 - Jessica David M.D.J01.90 Acute sinusitis, unspecifiedNew Medication:Amoxicillin/Clavulanate Potassium 875-125 mg
[2017-12-11 15:17] VITALS: BP 139/85
--- NOTE | 2017-12-11 15:57 | RAD ---
HISTORY: nasal bone injury COMPARISONS: None VIEWS: 3, Rand views of the face, bilateral coned down lateral views of the nasal bones FINDINGS: BONE DENSITY: Normal. BONES: There is no displaced fracture. The orbital rims are intact. JOINTS: There is no arthropathy. ALIGNMENT: There is no dislocation. SOFT TISSUES: Unremarkable. OTHER FINDINGS: There is a mucous retention cyst versus polyp with mucosal thickening of the left maxillary sinus. IMPRESSION: NO ACUTE OSSEOUS INJURY. IF SYMPTOMS PERSIST, RECOMMEND REPEAT IMAGING.
--- NOTE | 2017-12-11 15:59 | UC ---
Epistaxis Nasal HPI - HPI Summary HPI Summary: 72 yo female with nose bleed since 2 PM Window fell and struck her nose bleeding has slowed with pressure hx of septal perforation no other injury being treated for sinusitis - History of Current Complaint Chief Complaint: UCTrauma Stated Complaint: NOSE BLEED Time Seen by Provider: 12/11/17 15:24 Hx Obtained From: Patient Hx Last Menstrual Period: post Onset/Duration: Sudden Onset, Lasting Hours Timing: Constant Severity Initially: Severe Severity Currently: Moderate Pain Intensity: 4 Pain Scale Used: 0-10 Numeric Character: Heavy Aggravating Factor(s): Nasal Trauma Alleviating Factor(s): Pressure Associated Signs And Symptoms: Positive: Negative - Allergies/Home Medications Allergies/Adverse Reactions: Allergies Allergy/AdvReac Type Severity Reaction Status Date / Time propoxyphene [From Darvon] Allergy Dizziness Verified 12/11/17 15:38 Home Medications: Home Medications Fenofibrate Nanocrystallized [Tricor] 1 tab PO DAILY 12/11/17 [History Confirmed 12/11/17] Levothyroxine TAB* [Synthroid 125 MCG TAB*] 125 mcg PO EVERY OTHER DAY 12/11/17 [History Confirmed 12/11/17] Polyethylene Glycol 3350* [Miralax*] 1 pkt PO PRN 12/11/17 [History] PMH/Surg Hx/FS Hx/Imm Hx Previously Healthy: Yes Endocrine History: Dyslipidemia Cardiovascular History: Hypertension - Surgical History Surgical History: Yes Surgery Procedure, Year, and Place: removal of neurofibroma - W/ INTERNAL SURG CLIPS. cyst removal ovary. hernia repair. carpal tunnel. 2010 decompression of 5th lumbar nerve. removal of pelvic abcess. cataract surgeries. cataracts with implants. TRIGGER THUMBS - Family History Known Family History: Positive: Hypertension - Social History Alcohol Use: Occasionally Substance Use Type: None Smoking Status (MU): Never Smoked Tobacco Review of Systems Constitutional: Negative Skin: Negative Eyes: Negative ENT: Epistaxis, Sinus Congestion, Sinus Pain/Tenderness Respiratory: Negative Cardiovascular: Negative Gastrointestinal: Negative Genitourinary: Negative Motor: Negative Neurovascular: Negative Musculoskeletal: Negative Neurological: Negative Psychological: Negative Is Patient Immunocompromised?: No All Other Systems Reviewed And Are Negative: Yes Physical Exam Triage Information Reviewed: Yes Appearance: Well-Appearing, No Pain Distress, Well-Nourished Vital Signs: Initial Vital Signs Temp 98 F 12/11/17 15:12 Pulse 90 05/02/18 15:12 Resp 16 12/11/17 15:12 BP 139/85 12/11/17 15:12 Pulse Ox 97 12/11/17 15:12 Eye Exam: Normal ENT: Positive: Hearing grossly normal, TMs normal, Sinus tenderness, Uvula midline, Other - septal perforation/not actively bleeding Neck: Positive: Supple, Nontender Respiratory: Positive: Lungs clear, Normal breath sounds, No respiratory distress, No accessory muscle use Cardiovascular: Positive: RRR, No Murmur Musculoskeletal: Positive: ROM Intact, No Edema Neurological: Positive: Alert Psychological Exam: Normal Skin Exam: Normal Diagnostics - Radiology No standard instances Xray Interpretation: No Acute Changes - no fx Radiology Interpretation Completed By: Radiologist Epistaxis Nasal Course/Dx - Differential Dx/Diagnosis Provider Diagnoses: nasal contusion. epistaxis Discharge - Sign-Out/Discharge Documenting (check all that apply): Discharge/Admit/Transfer - Discharge Plan Condition: Stable Disposition: HOME Patient Education Materials: Nasal Contusion (ED), Nosebleed (ED) Referrals: Yudith Ruiz MD [Primary Care Provider] - Additional Instructions: rest ice tylenol recheck for new or worsening symptoms - Billing Disposition and Condition Condition: STABLE Disposition: HOME
== END 2017-12-11 16:07 | disposition home or self-care (01) ==
LOC: UCEAST 14:59
DX: S00.33XA Contusion of nose, initial encounter (principal); W20.8XXA Other cause of strike by thrown, projected or falling object, initial encounter; Y93.9 Activity, unspecified; Y92.9 Unspecified place or not applicable; R04.0 Epistaxis; J32.9 Chronic sinusitis, unspecified; E78.5 Hyperlipidemia, unspecified; I10 Essential (primary) hypertension; Z88.5 Allergy status to narcotic agent
CPT/HCPCS: 70160; 99211; G0463

== ENCOUNTER 2018-03-21 07:05 | Day surgery (SDC) | payer MEDICARE ==
[~2018-03-21 07:05] MED LIST: Buffered Lidocaine 0.9% SYRIN* 5 ML/SYR SYRINGE INTRADERM ONE
[2018-03-21] MEDS ORDERED: Midazolam* 1 MG/ML 2 ML VIAL (2 MG) ONE (07:54)
[2018-03-21] MEDS ORDERED: fentaNYL* 50 MCG/ML 2 ML VIAL (100 MCG VIAL) ONE (07:54)
[2018-03-21] MEDS ORDERED: Ondansetron INJ* 2 MG/ML VIAL ONE (08:52)
[2018-03-21] MEDS ORDERED: Dexamethasone IV* 4 MG/ML 1 ML (4 MG) ONE (08:52)
[2018-03-21] MEDS ORDERED: Propofol* 10 MG/ML 20 ML BTL IV PUSH ONE (08:52)
[2018-03-21] MEDS ORDERED: Ketorolac INJ* 30 MG/ML 1 ML VIAL ONE (08:52)
[2018-03-21] MEDS ORDERED: Famotidine IV* 10 MG/ML 2 ML (20 mg) ONE (08:52)
[2018-03-21] MEDS ORDERED: Lidocaine 2% PF * 5 ML VIAL ONE (08:52)
[2018-03-21] MEDS ORDERED: Naloxone* 0.4 MG/ML 1 ML VIAL IV PRN (08:58)
[2018-03-21] MEDS ORDERED: HYDROcodone/ACETAMIN 5-325 MG* 1 TAB PO PRN (08:58)
[2018-03-21] MEDS ORDERED: PROCHLORPERAZINE INJ 5 MG/ML 2 ML VIAL IV PRN (08:58)
[2018-03-21] MEDS ORDERED: Acetaminophen TAB* 325 MG PO PRN (08:58)
[2018-03-21] MEDS ORDERED: Ondansetron INJ* 2 MG/ML VIAL IV PRN (08:58)
[2018-03-21] MEDS ORDERED: Nalbuphine* 10 MG/ML 1 ML VIAL IV PRN (08:58)
[2018-03-21] MEDS ORDERED: DiMENhydriNATE IV* 50 MG/ML VIAL IV PUSH PRN (08:58)
[2018-03-21] MEDS ORDERED: fentaNYL* 50 MCG/ML 2 ML VIAL (100 MCG VIAL) IV PRN (08:58)
[2018-03-21] MEDS ORDERED: Acetaminophen TAB* 325 MG ONE (10:08)
[2018-03-21 11:18] VITALS: BP 139/83
--- NOTE | 2018-03-21 22:26 | OP ---
OPERATIVE REPORT: DATE OF OPERATION: 03/21/18 DATE OF : 43 SURGEON: Ayesha Balbuena MD ANESTHESIOLOGIST: Dr. Che. PRE-OP DIAGNOSIS: Endometrial polyp on ultrasound. POST-OP DIAGNOSIS: Endometrial polyp on ultrasound, pathology pending. OPERATIVE PROCEDURE: Dilation hysteroscopy, curettage after dilation of the cervix. FINDINGS: Small uterus. Cervix is deviated to the right and is very posterior in location. The os was stenotic. The uterus sounds to 6. There were 2 small polypoid masses. No adnexal masses were p alpated. ESTIMATED BLOOD LOSS: Less than 20 cc. SPECIMENS: Endometrial curettings. FLUIDS: Per Anesthesia. COUNTS: Sponge count was correct x2 and the patient is going to be brought to the recovery room when she is awake. DESCRIPTION OF PROCEDURE: The patient was brought to the operating room. When general anesthesia wa s found to be adequate, the patient was prepped and draped in the usual sterile fashion in the dorsal lithotomy position. Time-out was performed. Betadine was not used for the prep because the patient is allergic. Time-out was performed. Exam under anesthesia was performed with the above findings no mendoza. A narrow weighted speculum was placed in the vagina. The anterior lip of the cervix was graspe d with a single tooth tenaculum. The cervix was stenotic. Lacrimal dilators were used initially to dilate the external os and then graduated Ruiz dilators were used to dilate the remainder of the cer vix. The hysteroscope was introduced. Two small polyps were seen. The curettage was then performed . Endometrial curettings were sent to pathology. All instruments were removed and the patient was b rought to the recovery room awake and in stable condition. [id number]/[facility] #: [id number]
== END 2018-03-21 11:47 | disposition home or self-care (01) ==
LOC: OR 07:05
PROVIDERS: ATTEND Obstetrics & Gynecology
DX: N84.0 Polyp of corpus uteri (principal); E03.9 Hypothyroidism, unspecified; I10 Essential (primary) hypertension; K21.9 Gastro-esophageal reflux disease without esophagitis; E78.5 Hyperlipidemia, unspecified
CPT/HCPCS: 88305; A9270-GY; J1100; J1885; J2250; J2405; J2704; J3010

== ENCOUNTER 2018-05-20 06:13 | Day surgery (SDC) | payer MEDICARE ==
--- NOTE | 2018-05-09 06:38 | HP ---
HISTORY AND PHYSICAL: DATE OF ADMISSION/SURGERY: 05/20/18 DATE OF OFFICE VISIT: 05/02/18 SURGEON: Jacinda Winter MD * (DICTATED BY LLOYD TIAN) PROCEDURE: Right knee arthroscopy with partial medial meniscectomy, possible chondroplasty, possible synovectomy. CHIEF COMPLAINT: Right knee pain. HISTORY OF PRESENT ILLNESS: Ms. Grigsby is a 72-year-old female with complaints of right knee pain and an MRI confirms a medial meniscus tear, and she has elected to proceed with surgery. PAST MEDICAL HISTORY: Hypothyroidism and hypertension. PAST SURGICAL HISTORY: D and C, exploratory laparotomy, removal of an endometrial cyst, hernia repair, cataract removal, sinus surgery, bilateral trigger thumb release, right carpal tunnel release, and lumbar decompression. CURRENT MEDICATIONS: 1. Fenofibrate 145 mg daily. 2. Synthroid 125 mcg 2 times a week and 150 mcg 5 times a week. 3. Citrucel. 4. Calcium with vitamin D. 5. Vitamin B complex. 6. Aspirin 81 mg daily. 7. MiraLAX as needed. 8. Tylenol. 9. Klor-Con 10 mEq 2 tabs daily. ALLERGIES: To DARVON, IODINE, and STATINS. FAMILY HISTORY: Breast cancer. SOCIAL HISTORY: She is a 72-year-old female. She lives with her . She does not smoke or use drugs. She uses occasional alcohol. REVIEW OF SYSTEMS: A complete 14-point review of systems was reviewed with the patient. It is all negative and noncontributory. She denies history of DVT, PE , hepatitis, HIV, or anesthesia problems. PHYSICAL EXAMINATION GENERAL: She is well developed, well nourished, in no acute distress. VITAL SIGNS: She stands 5 feet 4 inches tall, weighs 148 pounds. Her blood pressure 124/80 and her heart rate is 72. HEENT: Normocephalic, atraumatic. NECK: Supple. No palpable lymph nodes. PULMONARY: Lungs are clear to auscultation bilaterally. CARDIAC: Regular rate and rhythm. Strong S1 and S2. ABDOMEN: Soft, nontender, nondistended. MUSCULOSKELETAL: Right lower extremity, the skin is intact. There are no open wounds or abrasions. There is a mild joint effusion. There is some tenderness over the medial joint line. Positive Luz's, negative for Tristan's. 2+ dorsalis pedis pulses, intact sensation. Her lower extremity muscle group strengths are intact at 5/5. NEUROLOGIC: She is alert and oriented x3. ASSESSMENT AND PLAN: Ms. Grigsby is a 72-year-old female with complaints of right knee pain. She has failed conservative treatment and an MRI confirms a medial meniscus tear. She has elected to proceed with a right knee arthroscopy with partial medial meniscectomy, possible chondroplasty, possible synovectomy. The surgery is scheduled for 05/20/[address] Winter discussed the risks and benefits of the surgery at today's visit and all of her questions were answered. She will follow up with Dr. Winter 2 weeks after the surgery. LLOYD TIAN [id number]/[facility] #: [id number] MTDD
[~2018-05-20 06:13] MED LIST changes: +Dexamethasone IV* 4 MG/ML 1 ML (4 MG) IV SLOW PU ONE; +Famotidine IV* 10 MG/ML 2 ML (20 mg) IV ONE; +Scopolamine 1.5 mg* PATCH TRANSDERM ONE
[2018-05-20] MEDS ORDERED: Dexamethasone IV* 4 MG/ML 1 ML (4 MG) ONE (06:22)
[2018-05-20] MEDS ORDERED: Famotidine IV* 10 MG/ML 2 ML (20 mg) ONE (06:23)
[2018-05-20] MEDS ORDERED: ceFAZolin 2 GM in NS PREMIX(*) 2 GM/100 ML BAG IVPB ONE (06:23)
[2018-05-20] MEDS ORDERED: Buffered Lidocaine 0.9% SYRIN* 5 ML/SYR SYRINGE ONE (06:23)
[2018-05-20] MEDS ORDERED: Scopolamine 1.5 mg* PATCH ONE (06:23)
[2018-05-20] MEDS ORDERED: EPINEPHRINE 1 MG/ML 1 ML VIAL ONE (06:46)
[2018-05-20] MEDS ORDERED: methylPREDNISolone ACETATE 80* 80 MG/ML 1 ML VIAL ONE (06:46)
[2018-05-20] MEDS ORDERED: Bupivacaine 0.5% SDV PF* 30ML VIAL ONE (06:46)
[2018-05-20] MEDS ORDERED: fentaNYL* 50 MCG/ML 5 ML VIAL (250 MCG VIAL) ONE (06:59)
[2018-05-20] MEDS ORDERED: PROCHLORPERAZINE INJ 5 MG/ML 2 ML VIAL IV PRN (07:57)
[2018-05-20] MEDS ORDERED: Morphine INJ* 2 MG/ML 1 ML SYRINGE (TWO MG - NEW SYRINGE VERSION) IV PRN (07:57)
[2018-05-20] MEDS ORDERED: Ketorolac INJ* 30 MG/ML 1 ML VIAL IV PRN (07:57)
[2018-05-20] MEDS ORDERED: Acetaminophen TAB* 325 MG PO PRN (07:57)
[2018-05-20] MEDS ORDERED: HYDROcodone/ACETAMIN 5-325 MG* 1 TAB PO PRN (07:57)
[2018-05-20] MEDS ORDERED: DiMENhydriNATE IV* 50 MG/ML VIAL IV PUSH PRN (07:57)
[2018-05-20] MEDS ORDERED: Naloxone* 0.4 MG/ML 1 ML VIAL IV PRN (07:57)
[2018-05-20] MEDS ORDERED: Ondansetron INJ* 2 MG/ML VIAL IV PRN (07:57)
[2018-05-20] MEDS ORDERED: fentaNYL* 50 MCG/ML 2 ML VIAL (100 MCG VIAL) ONE (08:27)
[2018-05-20] MEDS: fentaNYL* 50 MCG/ML 2 ML VIAL (100 MCG VIAL) IV PRN ×2 (08:34→08:55)
[2018-05-20] MEDS ORDERED: Ketorolac INJ* 30 MG/ML 1 ML VIAL ONE (08:42)
[2018-05-20] MEDS ORDERED: HYDROcodone/ACETAMIN 5-325 MG* 1 TAB ONE ×2 (09:18→09:19)
[2018-05-20 09:56] VITALS: BP 152/74
[2018-05-20] MEDS ORDERED: Lidocaine 2% PF * 5 ML VIAL ONE (10:47)
[2018-05-20] MEDS ORDERED: Metoclopramide IV* 5 MG/ML 2 ML VIAL ONE (10:47)
[2018-05-20] MEDS ORDERED: Propofol* 10 MG/ML 20 ML BTL IV PUSH ONE (10:47)
[2018-05-20] MEDS ORDERED: Ondansetron INJ* 2 MG/ML VIAL ONE (10:47)
--- NOTE | 2018-05-21 22:39 | OP ---
DATE OF OPERATION: 05/20/18 - [facility] DATE OF : 43 SURGEON: Jacinda Winter MD POST ANESTHESIA NURSE: LLOYD Casey. Mr. Brizuela did help throughout the procedure with preparation of the leg, wound retraction, manipulation of the knee and wound closure. ANESTHESIOLOGIST: Dr. Fierro. ANESTHESIA: General. PRE-OP DIAGNOSES: Right knee medial meniscal tear, moderate osteoarthritis. POST-OP DIAGNOSES: Right knee medial meniscal tear, anterior synovitis, severe degenerative osteoarthritis of the medial compartment. OPERATIVE PROCEDURE: Right knee arthroscopy with partial medial meniscectomy, anterior synovectomy and medial chondroplasty. ESTIMATED BLOOD LOSS: Less than 25 cc. SPECIMEN: None. COMPLICATIONS: None. BRIEF HISTORY/INDICATIONS: Ms. Grigsby is a 72-year-old female with several months of increasingly severe right knee pain. This became quite severe and she did have mechanical symptoms. She failed conservative treatment with physical therapy, intra-articular injection, and anti-inflammatories. An MRI was obtained, which confirmed a medial meniscal tear. Due to the patient's severe pain and mechanical symptoms, she wished to proceed with right knee arthroscopy with partial meniscectomy, possible chondroplasty, possible synovectomy. Informed consent was obtained from the patient. She understood the risks of surgery included, but were not limited to bleeding, infection, damage to nearby structures, continued pain, need for further surgery, retear of the meniscus, stroke, heart attack, blood clot, and . She wished to proceed. INTRAOPERATIVE FINDINGS: Intraoperatively, the patient was noted to have a linear tear in the posterior one third of the medial meniscus in the red white zone. She had severe grade 3 and 4 Outerbridge cartilage changes with exposed subchondral bone along the majority of the medial femoral condyle. Also, some less widespread grade 3 and 4 Outer-bridge cartilage changes along the medial and lateral patellar facet and trochlear groove of the femur. She had significant amount of the anterior synovitis. DESCRIPTION OF PROCEDURE: Ms. Grigsby was identified in the preanesthesia unit. Her right lower extremity was marked as the correct operative side. Informed consent was signed and placed in the chart. The patient was taken to the operating room and placed under general anesthesia. Right lower extremity was prepped and draped in the usual sterile fashion. Preop time-out was made to correctly identify the patient's side and site. Appropriate perioperative antibiotics were given within 1 hour of incision. A 0.5 cm anterolateral portal incision was made with a 10 blade and carried down to the capsule. Trocar was introduced. As soon as the light and water sources were turned on, there was immediate visualization of the suprapatellar pouch. A tour of the knee joint was performed. Suprapatellar pouch had no obvious abnormalities. Patellofemoral compartment showed some grade 3 and 4 Outerbridge cartilage changes with fissures in the cartilage and exposed subchondral bone and minimal area of the medial patellar facet. Femoral trochlear groove had these changes as well. Medial gutter showed no loose body or plica. The anterior joint line had a significant amount of synovitis. Medial compartment showed exposed subchondral bone along the majority of the medial femoral condyle. These were grade 3 and 4 Outerbridge cartilage changes and the arthritis was quite severe. Posteromedial meniscus showed a linear tear with some anterior displacement. ACL and PCL appeared to be intact. The knee was placed in a figure-of-4 position. Lateral compartment showed minimal degenerative changes. No obvious meniscal tear was visualized. Lateral gutters showed no loose body or plica. Under direct visualization, a medial portal incision was made with a 10 blade. Probe was introduced and a second tour of the knee joint was performed. No additional findings were noted. Shaver and radiofrequency ablation wand were used to perform an anterior synovectomy. Any impinging inflamed tissue was carefully removed. This improved visualization dramatically. A straight biter and shaver were used to perform partial medial meniscectomy in the red-white zone of the posterior medial meniscus. This was obtained. Further probing of the meniscus showed no additional split fragments or tears. The radiofrequency ablation wand was used to smooth any cartilage flap along the medial femoral condyle. This was done in a conservative fashion. The knee was copiously irrigated with sterile saline. All instruments were removed. Incisions were closed using 3-0 nylon suture. Intraarticular injection of 80 mg Depo-Medrol and 6 cc of 0.25% Marcaine was placed in the knee joint. Incisions were covered with sterile Xeroform, 4x4s, and Webril. Jules wrap and cold pack were placed over this. The patient's anesthesia was reversed without difficulty. She was taken to the PACU in stable condition. Intended weightbearing will be weightbearing as tolerated. Intended DVT prophylaxis will be aspirin. [id number]/[facility] #: [id number] [facility]
[2018-05-23] MEDS ORDERED: Scopolamine PATCH Remove* 1 NOTE MISC PATCH OFF ONE (06:00)
== END 2018-05-20 10:00 | disposition home or self-care (01) ==
LOC: OR 06:13
PROVIDERS: ATTEND Orthopaedic Surgery Adult Reconstructive Orthopaedic Surgery
DX: S83.241A Other tear of medial meniscus, current injury, right knee, initial encounter (principal); M65.861 Other synovitis and tenosynovitis, right lower leg; M17.11 Unilateral primary osteoarthritis, right knee; E03.9 Hypothyroidism, unspecified; I10 Essential (primary) hypertension; K21.9 Gastro-esophageal reflux disease without esophagitis; E78.5 Hyperlipidemia, unspecified; M19.90 Unspecified osteoarthritis, unspecified site; X58.XXXA Exposure to other specified factors, initial encounter; Y92.9 Unspecified place or not applicable
CPT/HCPCS: A9270-GY; J0690; J1040; J1100; J1885; J2405; J2704; J2765; J3010

== ENCOUNTER 2018-05-26 19:06 | Emergency (ER) | payer MEDICARE ==
--- OUTSIDE RECORDS SUMMARY | 2018-05-26 19:36 | XMS REPORT ---
:1945 External Reference #:[id number] Author Organization [facility] Address [address] [place] [address] Phone [phone] Care Team Providers Name Role Phone Jessica David MD Primary Care Physician Unavailable Payers Type Date Identification Numbers Payment Provider Subscriber Medicare Primary Effective: Policy Number: Medicare [place] Grigsby 2009 [id number] PayID: [id number] [address] [place] [address] Medigap Part B Policy Number: [id number] [facility] [place] Grigsby PayID: [id number] [address] [place] [address] Workers Compensation Effective: Policy Number: Jolie Grigsby 2014 [id number] Expires: [address] Onset: 2014 [address] [place] [address] Medigap Part B Effective: Policy Number: [employer] [place] Gonzalez [id number] [facility] Expires: 2014 PayID: [id number] [address] [place] [address] Medigap Part B Expires: 2009 Policy Number: BS Of MAGEN Grigsby [id number] Group Number: [id number] [address] PayID: [id number] [id number] Medigap Part B Expires: 2012 Policy Number: BS Of MAGEN Girgsby [id number] PayID: [id number] [address] [id number] Problems Date Description Provider Status Onset: 09/11/2007 Skin sensation disturbance Trip Washington M.D. Active Onset: 04/30/2011 Postablative hypothyroidism Trip Washington M.D. Active Onset: 01/09/2012 Essential hypertension Trip Washington M.D. Active Onset: 07/09/2012 Pure hypercholesterolemia Trip Washington M.D. Active Onset: 11/04/2014 Gastroesophageal reflux disease with Jessica David M.D. Active hiatal hernia Onset: 11/04/2014 Family history of malignant neoplasm Jessica David M.D. Active of breast Note: sister Onset: 11/04/2014 Hypercholesterolemia Jessica David M.D. Active Onset: 11/04/2006 Hyperplastic polyp of intestine Jessica David M.D. Active Onset: 11/04/2014 Constipation - functional Jessica David M.D. Active Onset: 06/21/2015 Internal hemorrhoids without Jessica David M.D. Active complication Onset: 07/06/2015 Thoracic and lumbosacral neuritis Karyn Roth MD Active Onset: 09/12/2015 Idiopathic peripheral neuropathy Karyn Roth MD Active Onset: 11/14/2015 Localized, primary osteoarthritis of Jacinda Winter M.D. Active the pelvic region and thigh Onset: 11/14/2015 Trochanteric bursitis Jessica David M.D. Active Onset: 07/24/2016 Osteoporosis Jessica David M.D. Active Note: hip R Onset: 03/24/2018 Localized, primary osteoarthritis Jacinda Winter M.D. Active Onset: 04/30/2011 Increased frequency of urination Trip Washington M.D. Resolved Resolved: 11/07/2014 Onset: 04/30/2011 Low back pain Trip Washington M.D. Resolved Resolved: 11/07/2014 Onset: 09/04/2011 Palpitations Trip Washington M.D. Resolved Resolved: 11/07/2014 Onset: 08/14/2012 Difficulty breathing Trip Washington M.D. 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 Cigarette Use Never Smoked Cigarettes ETOH Use Occasionally consumes alcohol Smoking Patient has never smoked Exercise Type/Frequency Exercises regularly water aerobics, walking Allergies, Adverse Reactions, Alerts Date Description Reaction Status Severity Comments 02/24/2007 Darvon active GI Upset 04/30/2011 Iodine active developed itching & rash 05/19/2015 Statins active diffuse joint pains Medications Medication Date Status Form Strength Qnty SIG Indications Ordering Provider Cephalexin 05/22 Active Capsules 500mg 28cap take 1 by M17.11 Zaneb s mouth four Yaseen, times a day Oxycodone-Acet 05/20 Active Tablets 5-325mg 42tab 1 by mouth Jacinda aminophen s every 4 hours Moy, as needed for M.D. post-op pain Aspirin 05/20 Active Tablets 325mg 28tab take 1 by Jacinda s mouth twice a Moy, day for two M.D. weeks Fenofibrate 05/19 Active Tablets 145mg 90tab Take 1 Tablet E78.0 Trip E. s Daily Chasity Washington Triamterene/Hy 01/13 Active Capsules 37.5-25mg 90cap Take 1 Jessica drochlorothiaz s Capsule Every David, martín Morning M.DSeb Citrucel 10/14 Active Packet 1 tbsp qam Trip E. Chasity Washington Calcium + D Active Tablets 600mg 1 PO daily Unknown /0000 Vitamin B Active Tablets 1 PO qd Miller Complex /0000 MD Srikanth Miralax Active Powder 3350NF takes 1/2 Unknown /0000 dose---17 gm every day mixed w/ 8 oz water/juice daily Tylenol PM Active Tablets take as Unknown /0000 prescribed on bottle as needed pain Klor-Con M10 Active Tablets ER 10Meq 180ta Take 2 Jessica bs Tablets once David, a day M.DSeb Ibuprofen 03/04 Hx Tablets 600mg 12tab one tablet by Dvorah s mouth q6 as [place], - needed pain 03/23 Oxycodone-Acet 03/04 Hx Tablets 5-325mg 8tabs 1 tablet po Dvorah aminophen /2017 q6 hours prn Esha, - strong pain 03/23 Doxycycline 12/24 Hx Tablets 100mg 20tab 1 tablet J01.91 Jessica Hyclate s twice a day x David, - 10 days M.D. 01/03 Amoxicillin/Cl 12/09 Hx Tablets 875-125mg 20tab 1 tab by J01.90 Jessica avulanate s mouth twice a David, Potassium - day M.D. 12/19 Azithromycin 10/29 Hx Tablets 250mg 6tabs take 2 tab on Jessica /2018 day 1 then 1 David, - tab daily x 4 M.D. Proair 10/07 Hx Aerosol 108(90Bas 8.500 2 puffs by R05 Jessica Respiclick e) gm mouth every 6 David, - mcg/Act hours as M.D. 12/09 needed Tessalon 09/30 Hx Capsules 100mg 30cap 1-2 tab by Jessica Perles s mouth daily David, - at night for M.D. 01/13 cough Oseltamivir 09/27 Hx Capsules 75mg 10cap 1 by mouth J20.9 Trip Maryse. Phosphate s twice a day Padmini, - for 5 days M.D. 10/07 Prednisone 05/27 Hx Tablets 10mg qs take 3 tab L29.8 Jessica daily x 2 David, - days then 2 M.D. 06/04 tab daily x days and then 1 tab daily x 3 days Alendronate 07/24 Hx Tablets 70mg 12tab not M81.8 Jessica Sodium /2015 s taking---take Joseph, - 1 tablet by M.D. 12/09 mouth Cefuroxime 03/05 Hx Tablets 250mg 20tab one tablet J01.10 César Axetil s twice daily ERNESTINE Patton - for 10 days. 03/16 Metformin HCL 11/09 Hx Tablets 500mg 60tab 1 by mouth Jessica s twice a day Joseph, - M.D. 12/19 Gabapentin 09/12 Hx Capsules 100mg 120ca 1 at bedtime G60.9 Karyn /2015 ps x1 week then MD Ira - 1 twice a day 10/23 x1 wk then qam and 2 qpm x1wk then 2 bid. Cefuroxime 09/08 Hx Tablets 250mg 20tab one tablet J01.90 César Axetil /2015 s twice daily ERNESTINE Patton - for 10 days. 09/19 Amoxicillin/Cl 07/13 Hx Tablets 875-125mg 20tab 1 tab by J01.90 Jessica avulanate /2014 s mouth twice a Joseph, Potassium - day M.D. 09/08 Alendronate 07/13 Hx Tablets 70mg 12tab take 1 tablet M81.8 Jessica Sodium s by mouth Joseph, - weekly M.D. 10/23 Metronidazole 06/21 Hx Gel 0.75% 1unit apply N76.0 Jessica /2015 s intravaginall Joseph - y once a day M.D. 06/28 x 7 days Metrogel-Vagin 05/25 Hx Gel 0.75% 70gm once a day X Jessica al 7 days Oscar David M.DSeb 06/21 Synthroid 03/03 Hx Tablets 125mcg 90tab 1 by mouth Jessica s daily 2 times Jsoeph, - a week M.D. 05/01 with 150 mg daily Synthroid 11/23 Hx Tablets 137mcg 90tab 1 by mouth Jessica s every other Joseph, - day M.D. 03/03 with 150 mcg Synthroid 06/24 Hx Tablets 125mcg 180ta 2 by mouth Jessica bs every day Joseph - M.D. 09/21 Synthroid 06/24 Hx Tablets 150mcg 90tab 1 Tab Daily 5 Jessica s Times A Week Oscar David.DSeb 05/01 Atorvastatin 05/13 Hx Tablets 10mg 90tab 1 by mouth 272.0 Jessica Calcium s every day Oscar DavidDSeb 03/03 Nyamyc 05/13 Hx Powder [id number] 100gm apply to 112.9 Jessica t/GM s affected area Joseph, - twice a day M.D. 09/21 x 10 days needed Oxycodone-Acet 01/20 Hx Tablets 5-325mg 10tab 1/2 to 1 tab 847.2 Jessica aminophen s as needed for Joseph, - severe pain M.D. 05/13 at night only Synthroid 07/14 Hx Tablets 200mcg 90tab 1 po qd Jayce s Oscar Pizano M.D.,FACP 07/15 Synthroid 04/30 Hx Tablets 200mcg 90tab 1 po qd 244.1 Trip Jimenez Oscar Gunderson M.D. 09/04 Synthroid 04/30 Hx Tablets 25mcg 60tab 1 po qd 244.1 Trip Jimenez /2010 Oscar Gunderson M.D. 09/04 Triamterene/Hy 04/03 Hx Capsules 37.5-25mg 90cap Take 1 Trip Jimenez drochlorothiaz s Capsule Every Padmini, martín - Morning M.D. 01/13 Amlodipine 03/11 Hx Tablets 10mg 90tab Take 1 Tablet Trip Jimenez Besylate s Daily Oscar Washington M.D. 03/05 Amoxicillin 07/25 Hx Tablets 500mg 30tab 1 po tid for Trip Jimenez /2009 s 10 days Oscar Washington M.D. 08/31 Zithromax 02/20 Hx Tablets 250mg 1Pack as per Trip Chaparro directions Oscar Washington M.D. 04/06 Robitussin 02/20 Hx 6Oz 10 cc qhs and Trip Jimenez With Codeine q 4 hrs prn Breonna Washington M.D. 04/06 Flonase 10/19 Hx Suspension 50mcg/Act 1Bott 1 intranasal Trip Jimenez /2009 le puff to each Oscar Washington nostril daily M.DSeb 01/24 Tessalon 09/30 Hx Capsules 100mg 30cap 1-2 po tid Trip Shirley s prn Oscar Washington M.D. 01/24 Medrol (Bob) 09/30 Hx Tablets 4mg 1tabs per dosepack Trip Jimenez directions Oscar Washington M.D. 04/06 Fish Oil 09/26 Hx Capsules [...] 1 po bid with Trip Jimenez s Oscar Bean M.D. 02/08 Norvasc 05/17 Hx Tablets 5mg 90tab 1 po qd Trip Jimenez Oscar Gunderson M.D. 07/20 Zithromax 05/17 Hx Tablets 250mg 1Pack as per Trip Dimas- directions Oscar Washington M.D. 08/02 Physical 04/05 Hx PT evaluation Trip Jimenez Therapy and treatment Oscar Washington for l buttock M.D. 02/08 pain Physical 09/30 Hx 10Vis left Trip Jimenez Therapy its shoulder,arm Padmini, - and abd pain. M.D. 02/08 evaluate and treat Nitrostat 09/23 Hx Tablets Sub 0.4mg 25tab one sl q5min Trip Jimenez s up to 3 doses Oscar Washington prn Joyce.DSeb 10/14 Atenolol 09/23 Hx Tablets 25mg 30tab 1 po bid Trip Jimenez Oscar Gunderson M.D. 05/17 Dyazide 09/10 Hx Capsules 37.5-25 90cap 1 po qam Trip Jimenez Oscar Gunderson M.D. 04/03 Levaquin 05/13 Hx Tablets 500mg 1O 1 po qd x 10 Trip ESeb /2006 days Oscar Washington M.D. 09/10 . 05/13 Hx physical Trip Jimenez therapy: Oscar Washington/Caryl Gaspar 09/10 chronic r shoulder pain Evista Hx [...] tid Unknown /0000 - 07/20 Aspirin Hx Tablets 81mg 1 po qd Unknown / - 05/20 Aspirin Hx Chewtabs 81mg 30uni Unknown Childrens /0000 ts - 08/14 Red Rice Yeast Hx 2 po qd Unknown /0000 - 05/13 Ibuprofen Hx Tablets 400mg 40tab 1 by mouth Unknown /0000 s every 6hr as - needed 07/[address] 40mg 90cap take 1 Jessica /0000 s capsule daily Oscar David M.D. 10/23 Synthroid Hx Tablets 175mcg 90tab Take 1 Tablet Jessica /0000 s Daily Oscar David M.D. 06/24 Multi Vitamin 00 Hx Tablets not taking Unknown Daily /0000 - 07/23 Fluticasone Hx Suspension 50mcg/Act 32gm 1 squirts Jessica Propionate /0000 each nostril Oscar David every day anil Gaspar 12/09 as needed Omeprazole 00/[address] 20mg 1 by mouth Unknown /0000 every day - 10/23 Esomeprazole 00/ Hx Capsules DR 20mg 1 by mouth Unknown Magnesium /0000 every day - OTC 12/19 Gabapentin 0000 Hx Capsules 100mg 1 by mouth @ Unknown /0000 hs - 07/23 Aleve PM 00/00 Hx Tablets 220-25mg as needed Unknown /0000 OTC - 05/26 Medications Administered in Office Medication Date Status Form Strength Qnty SIG Indications Ordering Provider Depomedrol Administered Injection Jacinda 40MG 018 Chasity Winter Depomedrol Administered Injection Jinny 40MG 017 Chasity Person Depomedrol Administered Injection Jacinda 40MG 016 Chasity Winter Depomedrol Administered Injection Mirza 80MG 014 Chasity Culver Depomedrol Administered Injection Mirza 80MG 014 Chasity Culver Immunizations CPT Code Status Date Vaccine Lot # [id number] Given 04/21/2018 Zoster (Shingles) Vaccine (HZV), Recombinant, Subunit, Adjuvanted 15968 Given 04/21/2018 Influenza Virus Vaccine, Quadrivalent, Split, Preservative Free 43392 Given 07/25/2017 Tdap - Tetanus/Diptheria/Acellular Pertussis [id number] 99728 Given 05/01/2017 Influenza Virus Vaccine, Quadrivalent, Split, Preservative Free [id number] Given 05/29/2016 Flu Vaccine NOS 52325 Given 05/19/2015 Pneumococcal Conjugate Vaccine 13 Valent For [id number] Intramuscular Use 45269 Given 04/20/2015 Fluzone High Dose 58038 Given 04/13/2015 Influenza Virus Vaccine, Quadrivalent, Split, Preservative Free [id number] Given 04/30/2014 Fluzone Vaccine [id number] Given 04/30/2013 Flu Vaccine Split Virus Preservative Free For [id number] Indiv 3Yr Older 18191 Given 04/30/2013 Flu Vaccine Split Virus Preservative Free For Indiv 3Yr Older Q2038 Given 05/05/2012 Fluzone Vaccine [id number] Q2038 Given 04/30/2011 Fluzone Vaccine [id number] 60188 Given 06/29/2010 Pneumonia Vaccine [id number] 79487 Given 07/21/2008 Zoster (Zostavax) 44595 Given 07/21/2008 Zoster (Zostavax) [id number] 39780 Given 05/17/2008 Influenza Virus 3Yrs & Over 25228 Given 05/22/2007 Influenza Virus 3Yrs & Over 50938 Given 02/24/2007 Tdap - Tetanus/Diptheria/Acellular Pertussis [id number] Vital Signs Date Vital Result Comment 05/22/2018 Height 64 inches 5'4" Weight 148.00 lb BP Systolic 124 mmHg BP Diastolic 80 mmHg Respiratory Rate 20 /min Body Temperature 97.3 F Pain Level 2 BMI (Body Mass Index) 25.4 kg/m2 05/02/2018 Height 64 inches 5'4" Weight 148.00 lb Heart Rate 72 /min BP Systolic 124 mmHg BP Diastolic 80 mmHg BMI (Body Mass Index) 25.4 kg/m2 04/30/2018 Height 64 inches 5'4" Weight 148.00 lb Heart Rate 76 /min BP Systolic Sitting 122 mmHg BP Diastolic Sitting 78 mmHg O2 % BldC Oximetry 95 % BMI (Body Mass Index) 25.4 kg/m2 04/18/2018 Height 64 inches 5'4" Weight 148.00 lb Heart Rate 72 /min Respiratory Rate 16 /min Pain Level 3 BMI (Body Mass Index) 25.4 kg/m2 04/07/2018 Height 64 inches 5'4" Weight 148.00 lb BP Systolic 114 mmHg BP Diastolic 70 mmHg Body Temperature 98.3 F BMI (Body Mass Index) 25.4 kg/m2 03/28/2018 Height 64 inches 5'4" Weight 150.00 lb Heart Rate 67 /min BP Systolic 130 mmHg BP Diastolic 82 mmHg O2 % BldC Oximetry 98 % BMI (Body Mass Index) 25.7 kg/m2 03/24/2018 Height 64 inches 5'4" Weight 150.00 lb Heart Rate 72 /min BP Systolic 136 mmHg BP Diastolic 86 mmHg Pain Level 3 BMI (Body Mass Index) 25.7 kg/m2 03/04/2018 Height 63.4 inches 5'3.40" Weight 143.00 lb Heart Rate 69 /min BP Systolic 121 mmHg BP Diastolic 76 mmHg O2 % BldC Oximetry 97 % BMI (Body Mass Index) 25.0 kg/m2 02/25/2018 Height 63.4 inches 5'3.40" Weight 150.00 lb Heart Rate 77 /min BP Systolic 130 mmHg BP Diastolic 88 mmHg O2 % BldC Oximetry 95 % BMI (Body Mass Index) 26.2 kg/m2 Last Menstrual Period [id number] 01/13/2018 Height 63.4 inches 5'3.40" Weight 149.00 lb Heart Rate 67 /min BP Systolic Sitting 136 mmHg BP Diastolic Sitting 72 mmHg O2 % BldC Oximetry 97 % BMI (Body Mass Index) 26.1 kg/m2 12/24/2017 Height 63.4 inches 5'3.40" Weight 149.00 lb Heart Rate 74 /min BP Systolic 112 mmHg BP Diastolic 70 mmHg O2 % BldC Oximetry 95 % BMI (Body Mass Index) 26.1 kg/m2 12/09/2017 Height 63.4 inches 5'3.40" Weight 146.00 [...] Test Date Test Result H/L Range Note Laboratory test finding 04/28/2018 TSH (Thyroid Stim 3.43 mcIU/mL 0.34- 5.60 Horm) Free T4 (Free Thyroxine) 1.38 ng/dL High 0.61-1.12 T3 Free 2.90 pg/mL 2.5-3.9 Laboratory test finding 03/21/2018 Surgical Pathology SEE RESULT BELOW 1 CBC Auto Diff 03/18/2018 White Blood Count 9.0 10^3/uL 3.5-10.8 Red Blood Count 4.70 10^6/uL 4.00-5.40 Hemoglobin 13.4 g/dL 12.0-16.0 Hematocrit 41 % 35-47 Mean Corpuscular Volume 86 fL 80-97 Mean Corpuscular Hemoglobin 28 pg 27-31 Mean Corpuscular HGB Conc 33 g/dL 31-36 Red Cell Distribution Width 14 % 10.5-15 Platelet Count 324 10^3/uL 150-450 Mean Platelet Volume 8.0 um3 7.4-10.4 Abs Neutrophils 3.7 10^3/uL 1.5-7.7 Abs Lymphocytes 3.9 10^3/uL 1.0-4.8 Abs Monocytes 0.9 10^3/uL High 0-0.8 Abs Eosinophils 0.5 10^3/uL 0-0.6 Abs Basophils 0.1 10^3/uL 0-0.2 Abs Nucleated RBC 0 10^3/uL Granulocyte % 40.9 % 38-83 Lymphocyte % 43.1 % 25-47 Monocyte % 9.5 % High 0-7 Eosinophil % 5.7 % 0-6 Basophil % 0.8 % 0-2 Nucleated Red Blood Cells % 0 Comp Metabolic Panel 03/18/2018 Sodium 140 mmol/L 135-145 Potassium 4.0 mmol/L 3.5-5.0 Chloride 105 mmol/L 101-111 Co2 Carbon Dioxide 26 mmol/L 22-32 Anion Gap 9 mmol/L 2-11 Calcium 9.9 mg/dL 8.6-10.3 Albumin 3.9 g/dL 3.2-5.2 Total Bilirubin 0.30 mg/dL 0.2-1.0 Glucose 103 mg/dL High 70-100 Blood Urea Nitrogen 24 mg/dL 6-24 Creatinine 1.05 mg/dL High 0.51-0.95 BUN/Creatinine Ratio 22.9 High 8-20 Total Protein 6.5 g/dL 6.4-8.9 Globulin 2.6 g/dL 2-4 Albumin/Globulin Ratio 1.5 1-3 Alkaline Phosphatase 63 U/L 34-104 Alt 19 U/L 7-52 Ast 22 U/L 13-39 Egfr Non- 51.4 >60 Egfr 62.2 >60 2 Laboratory test finding 02/25/2018 TSH (Thyroid Stim 8.79 mcIU/mL High 0.34-5.60 Horm) T3 Free 2.90 pg/mL 2.5-3.9 Free T4 (Free Thyroxine) 1.07 ng/dL 0.61-1.12 CA 125 (Ovarian Cancer Ag) 8.1 U/mL 0-35 3 He4 Ovarian Cancer Marker 98 pmol/L <=140 4 Laboratory test 01/13/2018 Hemoglobin A1c 5.9 5-7 finding Laboratory test 12/30/2017 TSH (Thyroid Stim 8.50 mcIU/mL High 0.34-5.60 finding Horm) T3 Free 2.90 pg/mL 2.5-3.9 Free T4 (Free Thyroxine) 1.30 ng/dL High 0.61-1.12 Blood Urea Nitrogen BUN 16 mg/dL 6-24 Creatinine 12/30/2017 Creatinine 0.82 mg/dL 0.51-0.95 Egfr Non- 68.3 >60 Egfr 87.9 >60 5 Rapid Influenza A & B 09/27/2017 Influenza A Molecular POSITIVE Negative 6 Molecular Influenza B Molecular NEGATIVE Negative Laboratory test 09/27/2017 Rapid Influenza A B SEE RESULT BELOW 7, 8 finding Antigen Creatinine 08/08/2017 Creatinine 0.80 mg/dL 0.51-0.95 Egfr Non- 70.5 >60 Egfr 90.7 >60 9 Lipid Profile (Trig/Chol/HDL) 07/20/2017 Triglycerides 69 mg/dL 10 Cholesterol 209 mg/dL 11 HDL Cholesterol 86.3 mg/dL 12 LDL Cholesterol 109 mg/dL 13 Basic Metabolic Panel 07/20/2017 Sodium 140 mmol/L 133-145 Potassium 3.7 mmol/L 3.5-5.0 Chloride 104 mmol/L 101-111 Co2 Carbon Dioxide 31 mmol/L 22-32 Anion Gap 5 mmol/L 2-11 Glucose 98 mg/dL 70-100 Blood Urea Nitrogen 20 mg/dL 6-24 Creatinine 0.87 mg/dL 0.51-0.95 BUN/Creatinine Ratio 23.0 High 8-20 Calcium 9.8 mg/dL 8.6-10.3 Egfr Non- 64.0 >60 Egfr 82.3 >60 14 Laboratory test finding 07/20/2017 TSH (Thyroid Stim 3.90 mcIU/mL 0.34- 5.60 15 Horm) T3 Free 2.90 pg/mL 2.5-3.9 16 Free T4 (Free Thyroxine) 1.25 ng/dL High 0.61-1.12 17 Laboratory test finding 05/27/2017 TSH (Thyroid Stim [...] 04/11/2017 T3 Free 1.80 pg/mL Low 2.5-3.9 18 Free T4 (Free Thyroxine) 1.03 ng/dL 0.61-1.12 19 TSH (Thyroid Stim Horm) 9.49 mcIU/mL High 0.34-5.60 20 Basic Metabolic Panel 04/11/2017 Sodium 141 mmol/L 133-145 Potassium 4.0 mmol/L 3.5-5.0 Chloride 105 mmol/L 101-111 Co2 Carbon Dioxide 31 mmol/L 22-32 Anion Gap 5 mmol/L 2-11 Glucose 104 mg/dL High 70-100 Blood Urea Nitrogen 17 mg/dL 6-24 Creatinine 0.86 mg/dL 0.51-0.95 BUN/Creatinine Ratio 19.8 8-20 Calcium 10.3 mg/dL 8.6-10.3 Egfr Non- 64.9 >60 Egfr 83.4 >60 21 Laboratory test 04/11/2017 Hemoglobin A1c 6.1 % High Less than 6.0 22 finding (Glyco HGB) Laboratory test 11/12/2016 TSH [...] Egfr Non- 65.9 >60 Egfr 84.8 >60 23 Laboratory test 08/30/2016 Hemoglobin A1c 5.8 % Less than 6.0 24 finding (Glyco HGB) Pthi 08/30/2016 Calcium (PTH [...] Lipid Profile (Trig/Chol/HDL) 05/23/2016 Triglycerides 48 mg/dL 25, 26 Cholesterol 209 mg/dL 25, 27 HDL Cholesterol 86.3 mg/dL 25, 28 LDL Cholesterol 113 mg/dL 25, 29 Laboratory test 05/23/2016 TSH (Thyroid Stim 6.13 mcIU/mL High 0.34-5.60 25, 30 finding Horm) Glucose 99 mg/dL 70-100 25, 31 Ua Routine 04/04/2016 Ua Specific [place] 1.015 Ua PH 6 Ua Color dark [...] HGB) 6.3 % High Less than 6.0 32 Laboratory test finding 09/12/2015 Vitamin B12 675 pg/mL 180-914 33 Folic Acid (Folate) > 20.00 ng/mL >3.99 34 Methylmalonic Acid Mma 0.38 nmol/mL <=0.40 35 Flora (Antinuclear Antibodies) Negative Negative 36 Erythrocyte Sed Rate 19 mm/Hr 0-40 37 C Reactive Protein 2.82 mg/L < 5.00 38 Protein Electrophoresis 09/12/2015 Total Protein(Pep) 7.6 g/dL 6.3 - 7.9 Albumin 3.7 g/dL 3.4-4.7 Alpha-1 Globulin 0.3 g/dL 0.1-0.3 Alpha-2 Globulin 1.2 g/dL 0.6-1.0 Beta Globulin 1.2 g/dL 0.7-1.2 Gamma Globulin 1.3 g/dL 0.6-1.6 Albumin/Globulin Ratio 0.95 Impression See Comment 39 Laboratory test 09/12/2015 Rheumatoid Factor <15 IU/mL <15 40 finding Laboratory test 09/12/2015 Hemoglobin A1c (Glyco 6.3 % High Less than 6.0 41 finding HGB) Ssa/SSB Abs Igg 09/12/2015 SS-A/Ro Antibody <0.2 U 42 SS-B/La Antibody <0.2 U 43 Liver Function Panel 07/11/2015 Total Protein 6.9 [...] Egfr Non- 68.0 >60 Egfr 87.4 >60 44 Laboratory test 06/24/2015 Hepatitis C Nonreactive Nonreactive finding Antibody Laboratory test 05/19/2015 Gardnerella/Yeast: SEE RESULT BELOW 45 finding Vaginal Dna Trichomonas: Vaginal Dna Probe SEE RESULT BELOW 46 Laboratory test finding 05/03/2015 Free T4 (Free 1.13 ng/mL High 0.61- 1.12 Thyroxine) TSH (Thyroid Stim Horm) 3.48 ?IU/mL 0.34-5.60 T3 Free 3.10 pg/mL 2.5-3.9 Lipid Profile (Trig/Chol/HDL) 05/03/2015 Triglycerides 134 mg/dL 47 Cholesterol 276 mg/dL 48 HDL Cholesterol 73.4 mg/dL 49 LDL Cholesterol 176 mg/dL 50 Laboratory test finding 03/02/2015 Free T4 (Free [...] 2.5-3.9 Free T4 1.46 ng/mL High 0.61-1.12 Laboratory test finding 05/05/2014 Magnesium 2.0 mg/dL 1.9-2.7 51, 52 Comp Metabolic Panel 05/05/2014 Sodium 139 mmol/L 133-145 51 Potassium 4.4 mmol/L 3.7-5.6 51 Chloride 101 mmol/L 101-111 51 Co2 Carbon Dioxide 31 mmol/L 22-32 51 Anion Gap 7 mmol/L 2-11 51 Glucose 88 mg/dL 70-100 51 Blood Urea Nitrogen 15 mg/dL 6-24 51 Creatinine 0.69 mg/dL 0.51-0.95 51 BUN/Creatinine Ratio 21.7 High 8-20 51 Calcium 9.4 mg/dL 8.6-10.3 51 Total Protein 6.9 g/dL 6.4-8.9 51 Albumin 4.2 g/dL 3.2-5.2 51 Globulin 2.7 g/dL 2-4 51 Albumin/Globulin Ratio 1.6 1-3 51 Total Bilirubin 0.70 mg/dL 0.2-1.0 51 Alkaline Phosphatase 80 U/L 34-104 51 Alt 16 U/L 7-52 51 Ast 17 U/L 13-39 51 Egfr Non- 84.4 >60 51 Egfr 108.5 >60 51, 53 Lipid Profile (Trig/Chol/HDL) 05/05/2014 Triglycerides 197 mg/dL 51, 54 Cholesterol 260 mg/dL 51, 55 HDL Cholesterol 73.3 mg/dL 51, 56 LDL Cholesterol 147 mg/dL 51, 57 Laboratory test finding 03/01/2014 Magnesium 1.8 mg/dL Low 1.9-2.7 Laboratory test finding 02/02/2014 Potassium 3.9 mmol/L 3.7-5.6 Magnesium 1.9 mg/dL 1.9-2.7 Creatine Kinase 24 U/L 10-223 D Dimer Quantitative < 200 ng/mL Less Than 230 58 Calcium 24HR Urine 01/23/2014 Urine Random Calcium 7.7 mg/dL 59 Urine Calcium/24HR 169.4 mg/24Hr 50-400 59 Urine Collection Time 24 59 Urine Total Volume 2200 mL 59 Pthi 01/23/2014 PTH Intact 3.1 pmol/L 1.3-9.3 59 Calcium (PTH Intact) 9.5 mg/dL 8.6-10.3 59 Laboratory test finding 01/23/2014 Calcium Ionized 4.63 mg/dL Low 4.65- 5.28 59 Laboratory test finding 01/13/2014 Potassium 4.1 mmol/L 3.7-5.6 Calcium Ionized 4.60 mg/dL Low 4.65-5.28 Lipid Profile (Trig/Chol/HDL) 11/02/2013 Triglycerides 190 mg/dL 60 Cholesterol 240 mg/dL 61 HDL Cholesterol 68.7 mg/dL 62 LDL Cholesterol 133 mg/dL 63 Liver Function Panel 11/02/2013 Total Protein 6.7 g/dL 6.4-8.9 Albumin 4.1 g/dL 3.2-5.2 Globulin 2.6 g/dL 2-4 Albumin/Globulin Ratio 1.6 1-3 Total Bilirubin 0.60 mg/dL 0.2-1.0 Direct Bilirubin 0.10 mg/dL 0.03-0.18 Indirect Bilirubin 0.5 mg/dL 0.3-1.0 Alkaline Phosphatase 68 U/L 34-104 Alt 17 U/L 7-52 Ast 18 U/L 13-39 Laboratory test finding 11/02/2013 Glucose 97 mg/dL 70-100 Vitamin D, 25 Hydroxy 05/01/2013 25-Hydroxy Vitamin D2 <4.0 ng/mL 25-Hydroxy Vitamin D3 54 ng/mL 25-Hydroxy Vitamin D Total 54 ng/mL 64 Comp Metabolic Panel 05/01/2013 Sodium 139 mmol/L [...] Egfr Non- 71.3 >60 Egfr 91.7 >60 65 Pthi 05/01/2013 PTH Intact 3.9 pmol/L 1.3-9.0 Calcium (PTH Intact) 9.0 mg/dL 8.1-9.9 Lipid Profile (Trig/Chol/HDL) 05/01/2013 Triglycerides 159 mg/dL 40-200 Cholesterol 252 mg/dL High Less than 200 HDL Cholesterol 71 mg/dL High 40-60 66 Cholesterol/HDL Ratio 3.6 Average 1-4.44 LDL Cholesterol 149.2 High Less Than 100 67 Laboratory test finding 08/15/2012 Free T4 1.14 ng/mL 0.61-1.24 TSH (Thyroid Stimulating Horm) 5.24 miu/mL 0.34-5.60 B Type Natriuretic Peptide 23.0 pg/mL 0-100 Manual Differential 07/10/2012 Neutrophil % 50.0 % 38-83 Band % 0 % 0-8 Lymphocytes % 36.0 % 25-47 Monocytes % 9.0 % 0-13 Eosinophils % 3.0 % 0-6 Basophil % 0 % 0-2 Reactive Lymph % 2.0 % 0-6 Metamyelocytes % 0 % 0-2 Myelocytes % 0 % 0-1 Promyelocytes % 0 % Blast % 0 % RBC Morphology Normal Normal Lipid Profile (Trig/Chol/HDL) 07/10/2012 Triglycerides 135 mg/dL 40-200 Cholesterol 259 mg/dL High Less than 200 HDL Cholesterol 75 mg/dL High 40-60 68 Cholesterol/HDL Ratio 3.5 AVERAGE 1-4.44 LDL Cholesterol 157.0 mg/dL High Less Than 100 69 Laboratory test 07/10/2012 TSH (Thyroid 6.12 MIU/ML High 0.34-5.60 70 finding Stimulating H[employer]) Comp Metabolic Panel 07/10/2012 Sodium 140 mmol/L [...] Egfr Non- 71.5 >60 Egfr 92.0 >60 71 CBC Auto Diff 07/10/2012 White Blood Count [...] 10^3/uL 0-0.2 Abs Nucleated RBC 0 10^3/uL Laboratory test finding 01/10/2012 Thyroxine Free 1.17 ng/dL 0.61-1.24 TSH 1.60 MIU/ML 0.34-5.60 Laboratory test finding 09/04/2011 Thyroxine Free 1.19 ng/dL 0.61-1.24 TSH 5.44 MIU/ML 0.34-5.60 Urinalysis W/Microscopic 04/30/2011 Ua Color YELLOW Yellow Appearance-Urine CLEAR Clear Specific Lamona-Ur 1.015 1.010-1.030 Esterase-Urine NEGATIVE Negative Nitrite NEGATIVE Negative Wfxsaginymth-Kl-WGD NEGATIVE Negative Protein-Urine NEGATIVE Negative PH-Urine 8.0 [...] mmol/L 22-32 Anion Gap 10.0 mmol/L 2-11 72 Glucose 95 mg/dL 70-100 BUN 12 mg/dL 6-24 Creatinine 0.6 mg/dL 0.50-1.40 One Over Creatinine 1.66 BUN/Creatinine Ratio 20.0 8-20 Calcium 9.6 mg/dL 8.1-9.9 eGFR Non- 100.0 > 60 eGFR 128.6 > 60 73 Laboratory test finding 04/30/2011 Thyroxine Free 1.22 ng/dL 0.61-1.24 TSH 3.26 MIU/ML 0.34-5.60 Urine Culture & 04/30/2011 Urine Culture NG [address] [facility] Panel 02/20/2011 TSH 4.61 MIU/ML 0.34-5.60 Comp Metabolic Panel 02/20/2011 Sodium 142 mmol/L 135-145 Potassium 4.0 mmol/L 3.5-5.0 Chloride 104 mmol/L 101-111 Co2 (Carbon Dioxide) 29.0 mmol/L 22-32 Anion Gap 9.0 mmol/L 2-11 75 Glucose 89 mg/dL 70-100 BUN 13 mg/dL 6-24 Creatinine 0.70 mg/dL 0.50-1.40 One Over Creatinine 1.40 BUN/Creatinine Ratio 18.6 8-20 Calcium 9.3 mg/dL 8.1-9.9 Total Protein 6.5 GM/DL 6.2-8.1 Albumin 3.9 GM/DL 3.2-5.2 Globulin 2.6 GM/DL 2-4 Albumin/Globulin Ratio 1.5 1-3 Bilirubin Total 0.8 mg/dL 0.4-1.5 76 Alkaline Phosphatase 63 U/L 30-110 Alt (SGPT) 19 U/L 14-54 Ast (Sgot) 24 U/L 12-42 eGFR Non- 83.7 > 60 eGFR 107.7 > 60 77 Lipid Profile (Trig/Chol/HDL) 02/20/2011 Triglyceride 104 mg/dL 40-200 Cholesterol 238 mg/dL High Less Than 200 78 High Density Lipoprotein 74 mg/dL High 40-60 79 Cholesterol/HDL Ratio 3.22 AVERAGE 1-4.44 Low Density Lipoprotein 143 mg/dL High Less Than 100 80 CBC Auto Diff 02/20/2011 White Blood Count 7.6 CUMM 4.8-10.8 Red Cell Count 4.36 CUMM 4.2-5.4 Hemoglobin 12.9 g/dL 12.0-16.0 Hematocrit 40 % 35-47 Mean Corpuscular Volume 92 um3 79-97 Mean Corpuscular Hemoglob 30 pg 27-31 Mean Corpuscular HGB Cone 32 g/dL 32-36 Redcell Distribution WDTH 13 % 10.5-15 Platelet Count 297 CUMM 150-450 Mean Platelet Volume 8.7 um3 7.4-10.4 81 Laboratory test finding 02/20/2011 Thyroxine 7.9 g/dL 5-12 Manual Differential 02/20/2011 Polysegmented Neutrophil 39 % 38-83 Lymphocyte 37 % 25-47 Monocyte 12 % 0-13 Eosinophil 4 % 0-6 Atypical Lymph 8 % High 0-6 Absolute Neutrophil Count 2.9 Anisocytosis SLIGHT Laboratory test finding 10/04/2010 TSH 3.21 MIU/ML 0.34-5.60 Thyroxine Free 1.13 NG/ML 0.61-1.24 Laboratory test finding 07/15/2010 Troponin-I 0.01 NG/ML 0-0.06 82 CBC With Electronic Diff 07/15/2010 White Blood [...] 0.1 0-0.2 Protime 07/15/2010 Inr 1.03 0.82-1.17 83 Protime 12.2 SEC 10.2-14.8 84 Laboratory test finding 07/15/2010 PTT (Aptt) 29.8 25.15-38.53 Comp Metabolic Panel 07/15/2010 Sodium 138 mmol/L 135-145 Potassium 3.6 mmol/L 3.5-5.0 Chloride 100 mmol/L Low 101-111 Co2 (Carbon Dioxide) 27.0 mmol/L 22-32 Anion Gap 11.0 mmol/L 2-11 85 Glucose 92 mg/dL 70-100 86 BUN 13 mg/dL 6-24 Creatinine 0.60 mg/dL 0.50-1.40 One Over Creatinine 1.60 BUN/Creatinine Ratio 21.7 High 8-20 Calcium 9.8 mg/dL 8.1-9.9 Total Protein 7.4 GM/DL 6.2-8.1 Albumin 4.4 GM/DL 3.2-5.2 Globulin 3.0 GM/DL 2-4 Albumin/Globulin Ratio 1.5 1-3 Bilirubin Total 1.0 mg/dL 0.4-1.5 87 Alkaline Phosphatase 80 U/L 30-110 Alt (SGPT) 21 U/L 14-54 Ast (Sgot) 25 U/L 12-42 eGFR Non- 106.6 > 60 eGFR 129.0 > 60 88 Laboratory test finding 07/15/2010 Troponin-I 0.01 NG/ML 0-0.06 89 Urinalysis 07/15/2010 Ua Color YELLOW Yellow Appearance-Urine CLEAR Clear Specific Lamona-Ur 1.011 1.010-1.030 Esterase-Urine NEGATIVE Negative Nitrite NEGATIVE Negative Dtetumzbvpub-Xo-WGH NEGATIVE Negative Protein-Urine NEGATIVE Negative PH-Urine 8.0 5-9 Blood-Urine NEGATIVE Negative Ketones-Urine 1+ Negative Bilirubin-Ur NEGATIVE Negative Glucose-Urine NEGATIVE Negative Comp Metabolic Panel 06/29/2010 Sodium 139 mmol/L 135-145 Potassium 3.5 mmol/L 3.5-5.0 Chloride 99 mmol/L Low 101-111 Co2 (Carbon Dioxide) 31.0 mmol/L 22-32 Anion Gap 9.0 mmol/L 2-11 90 Glucose 109 mg/dL High 70-100 91 BUN 11 mg/dL 6-24 Creatinine 0.80 mg/dL 0.50-1.40 One Over Creatinine 1.20 BUN/Creatinine Ratio 13.8 8-20 Calcium 9.7 mg/dL 8.1-9.9 Total Protein 7.0 GM/DL 6.2-8.1 Albumin 4.5 GM/DL 3.2-5.2 Globulin 2.5 GM/DL 2-4 Albumin/Globulin Ratio 1.8 1-3 Bilirubin Total 0.7 mg/dL 0.4-1.5 92 Alkaline Phosphatase 62 U/L 30-110 Alt (SGPT) 22 U/L 14-54 Ast (Sgot) 26 U/L 12-42 eGFR Non- 76.5 > 60 eGFR 92.6 > 60 93 CBC With Electronic Diff 06/29/2010 White Blood [...] Eosinophils 0.6 0-0.6 Abs Basophils 0.1 0-0.2 Laboratory test finding 06/29/2010 Erythrocyte Sed Rate 7 MM/HR 0-40 Thyroxine Free 1.25 NG/ML High 0.61-1.24 TSH 1.44 MIU/ML 0.34-5.60 [facility] Panel 03/27/2010 TSH 1.37 MIU/ML 0.34-5.60 Comp Metabolic Panel 03/27/2010 Sodium 141 mmol/L 135-145 Potassium 3.4 mmol/L Low 3.5-5.0 Chloride 102 mmol/L 101-111 Co2 (Carbon Dioxide) 30.0 mmol/L 22-32 Anion Gap 9.0 mmol/L 2-11 94 Glucose 95 mg/dL 70-100 95 BUN 11 mg/dL 6-24 Creatinine 0.60 mg/dL 0.50-1.40 One Over Creatinine 1.60 BUN/Creatinine Ratio 18.3 8-20 Calcium 9.1 mg/dL 8.1-9.9 96 Total Protein 6.5 GM/DL 6.2-8.1 Albumin 3.9 GM/DL 3.2-5.2 Globulin 2.6 GM/DL 2-4 Albumin/Globulin Ratio 1.5 1-3 Bilirubin Total 1.0 mg/dL 0.4-1.5 97 Alkaline Phosphatase 52 U/L 30-110 Alt (SGPT) 20 U/L 14-54 Ast (Sgot) 24 U/L 12-42 eGFR Non- 106.6 > 60 eGFR 129.0 > 60 98 Lipid Profile (Trig/Chol/HDL) 03/27/2010 Triglyceride 130 mg/dL 40-200 Cholesterol 234 mg/dL High Less Than 200 99 High Density Lipoprotein 72 mg/dL High 40-60 100 Cholesterol/HDL Ratio 3.25 AVERAGE 1-4.44 Low Density Lipoprotein 136 mg/dL High Less Than 100 101 CBC With Electronic Diff 03/27/2010 White Blood [...] A1c 6.1 % High Less Than 6.0 102 Laboratory test finding 02/08/2009 Thyroxine Free 1.21 NG/ML 0.61-1.24 103 TSH 1.21 MIU/ML 0.34-5.60 Lipid Profile (Trig/Chol/HDL) 01/31/2009 Triglyceride 149 mg/dL 40-200 104 Cholesterol 235 mg/dL High Less Than 200 104, 105 High Density Lipoprotein 66 mg/dL High 40-60 104, 106 Cholesterol/HDL Ratio 3.56 AVERAGE 1-4.44 104 Low Density Lipoprotein 139 mg/dL High Less Than 100 104, 107 Laboratory test finding 01/31/2009 Glucose 91 mg/dL 70-100 104, 108 Hemoglobin A1c 6.3 % High <6.0 104, 109 Ua Stat 08/22/2008 Ua Color YELLOW Appearance-Urine CLEAR Specific [place]-Ur 1.008 Low 1.010-1.030 Esterase-Urine TRACE Negative Nitrite NEGATIVE Negative Nqyszyxjjyfa-Pe-OHZ NEGATIVE Negative Protein-Urine NEGATIVE Negative PH-Urine 7.0 5-9 Blood-Urine NEGATIVE Negative Ketones-Urine NEGATIVE Negative Bilirubin-Ur NEGATIVE Negative Glucose-Urine NEGATIVE Negative Urinalysis W/Microscopic 08/22/2008 Ua Color YELLOW Appearance-Urine CLEAR Specific [place]-Ur 1.008 Low 1.010-1.030 Esterase-Urine TRACE Negative Nitrite NEGATIVE Negative Qlrdghfevjuj-Nx-AEQ NEGATIVE Negative Protein-Urine NEGATIVE Negative PH-Urine 7.0 5-9 Blood-Urine NEGATIVE Negative Ketones-Urine NEGATIVE Negative Bilirubin-Ur NEGATIVE Negative Glucose-Urine NEGATIVE Negative WBC-Urine 0-2 0-5 RBC-Urine 0-2 0-2 Mucus Urine SMALL Epith Cells-Ur FEW Bacteria-Urine TRACE CBC With Electronic Diff Stat 08/22/2008 White [...] Abs Basophils 0.1 0-0.2 Laboratory test finding 08/22/2008 Troponin-I (TnI) 0.06 NG/ML 0-0.06 110 P33S 08/22/2008 Sodium 138 mmol/L 135-145 Potassium 3.3 mmol/L Low 3.5-5.0 Chloride 102 mmol/L 101-111 Co2 (Carbon Dioxide) 27.0 mmol/L 22-32 Anion Gap 9.0 mmol/L 2-11 111 Glucose 126 mg/dL High 70-100 112 BUN 13 mg/dL 6-24 Creatinine 0.60 mg/dL 0.50-1.40 One Over Creatinine 1.60 BUN/Creatinine Ratio 21.7 High 8-20 Calcium 9.5 mg/dL 8.1-9.9 113 Total Protein 6.9 GM/DL 6.2-8.1 Albumin 3.7 GM/DL 3.2-5.2 Globulin 3.2 GM/DL 2-4 Albumin/Globulin Ratio 1.2 1-3 Bilirubin Total 0.9 mg/dL 0.4-1.5 Alkaline Phosphatase 75 U/L 30-110 Alt (SGPT) 20 U/L 14-54 Ast (Sgot) 21 U/L 12-42 Laboratory test finding 09/11/2007 TSH 1.67 MIU/ML 0.34-5.60 114 Lipid Profile 09/11/2007 Cholesterol/HDL 3.45 AVERAGE 1-4.44 114 (Trig/Chol/HDL) Ratio Cholesterol 221 mg/dL High Less Than 200 114, 115 Triglyceride 157 mg/dL 40-200 114 High Density Lipoprotein 64 mg/dL High 40-60 114, 116 Low Density Lipoprotein 126 mg/dL High Less Than 100 114, 117 Comp Metabolic Panel 09/11/2007 One Over Creatinine 1.42 114 Anion Gap 5.0 mmol/L 2-11 114, 118 Albumin/Globulin Ratio 1.6 1-3 114 Albumin 3.9 GM/DL 3.2-5.2 114 Alkaline Phosphatase 64 U/L 30-110 114 Alt (SGPT) 19 U/L 14-54 114 Ast (Sgot) 21 U/L 12-42 114 BUN 12 mg/dL 6-24 114 Calcium 9.2 mg/dL 8.7-10.2 114 Chloride 105 mmol/L 101-111 114 Co2 (Carbon Dioxide) 29.0 mmol/L 22-32 114 Globulin 2.5 GM/DL 2-4 114 Glucose 98 mg/dL 70-105 114 Potassium 4.3 mmol/L 3.5-5.0 114 Sodium 139 mmol/L 135-145 114 Bilirubin Total 0.8 mg/dL 0.4-1.5 114 Total Protein 6.4 GM/DL 6.2-8.1 114 BUN/Creatinine Ratio 17.1 8-20 114 Creatinine 0.7 mg/dL 0.5-1.4 114 Thyroxine Free 09/11/2007 Free Thyroxine 1.16 NG/ML 0.61-1.24 114, 119 CBC With Manual Diff 09/11/2007 RBC Morphology NORMAL 114 White Blood Count 6.8 CUMM 4.8-10.8 114 Absolute Neutrophil Count 2.8 114 Atypical Lymph 1 % 0-6 114 Hematocrit 43 % 35-47 114 Hemoglobin 14.4 g/dL 12.0-16.0 114 Eosenophil 7 % High 0-6 114 Lymphocyte 44 % 5-47 114 Mean Corpuscular HGB Cone 33 g/dL 32-36 114 Mean Corpuscular Hemoglob 30 pg 27-31 114 Mean Corpuscular Volume 90 um3 79-97 114 Monocyte 6 % 0-13 114 Mean Platelet Volume 9.2 um3 7.4-10.4 114 Platelet Count 277 CUMM 150-450 114 Polysegmented Neutrophil 42 % 38-83 114 Red Cell Count 4.82 CUMM 4.2-5.4 114 Redcell Distribution WDTH 13 % 10.5-15 114 Surgical Pathology 07/16/2007 Surgical Pathology <SEE NOTE > 120 1 SEE RESULT BELOW Name: MONTANA GRIGSBY : [address]: Ayesha Balbuena MD Acct: [id number] Unit: [id number] AGE: 72 Location: OR Re03/21/18 SEX: F Status: DEP [facility] [place] SPEC: [id number] WANDER: 03/21/18- SUBM DR: Ayesha Balbuena MD REQ: [id number] RECD: 03/21/180 STATUS: SOUT _ ORDERED: LEVEL 4 FINAL DIAGNOSIS Uterus, endometrium, curettage: -- Benign endometrial polyp. -- Inactive endometrial mucosa. -- No evidence of hyperplasia or malignancy. PRE-OPERATIVE DIAGNOSIS Polyp of corpus uteri GROSS DESCRIPTION The specimen is received in formalin labeled, Endometrial Curettings, and consists of a 1.2 x 0.6 x 0.2 cm aggregate of hull-pink irregular soft tissue fragments admixed with red-brown blood clot which is submitted entirely in one cassette. Signed by and Reported on: Rachelle Kapoor MD 03/25/18 1038 END OF REPORT DEPARTMENT OF PATHOLOGY, [address] [place] [address] Sourav Coronel M.D. Director [facility] # [id number] 2 Because ethnic data is not always readily [...] 15-29 5 Kidney failure <15 (or dialysis) 3 Instrument used is [employer] DXI 600. The assay is a two-site immunoenzymatic "sandwich" assay. Do not interpret CA125 levels as absolute evidence of the presence or the absence of malignant disease. Use in conjunction with information from the clinical evaluation of the patient and other diagnostic procedures. Values obtained with different assay methods cannot be used interchangeably. 4 ADDITIONAL INFORMATION The testing method is an electrochemiluminescence assay manufactured by [employer] and performed on the Modular or Arthur system. Values obtained with different assay methods or kits may be different and cannot be used interchangeably. Test results cannot be interpreted as absolute evidence for the presence or absence of malignant disease. Test Performed by: [place] [place] [address] 5 Because ethnic data is not always readily [...] 15-29 5 Kidney failure <15 (or dialysis) 6 Bindery Assistant: [id number] SEE RESULT BELOW Name: MONTANA GRIGSBY : [address]: Trip [facility] III, MD Acct: [id number] Unit: [id number] AGE: 72 Location: [facility] Re09/27/17 SEX: F Status: REG REF SPEC: [id number] WANDER: 09/27/17-[address] [facility] [address]: Trip Washington III, MD REQ: [id number] RECD: 09/27/17 STATUS: HEMANT MARKS DR: Jessica David MD _ SOURCE: [facility]: ORDERED: Flu A B Request COMMENTS: [id number] Procedure Result Reported Site Rapid Influenza A B Request Final 09/27/17- 1925 ML Specimen received for Influenza A/B Molecular testing * ML - MAIN LAB ([facility]) . END OF REPORT * ML=Testing performed at Main Lab DEPARTMENT OF PATHOLOGY, [address] [place] [address] Sourav Coronel M.D. Director [facility] # [id number] 9 Because ethnic data is not always [...] 5 Kidney failure <15 (or dialysis) 10 Desirable: <150 Borderline High: 150-199 High: 200-499 Very High: >500 11 Desirable: <200 Borderline High: 200-239 High: >239 12 Low: <40 Desirable: 40-60 High: >60 13 Desirable: <100 Near Optimal: 100-129 Borderline High: 130-159 High: 160-189 Very High: >189 14 Because ethnic data is not always readily [...] 15-29 5 Kidney failure <15 (or dialysis) 15 FASTING 10 HOUR 16 FASTING 10 HOUR 17 FASTING 10 HOUR 18 FASTING 10 HOUR 19 FASTING 10 HOUR 20 FASTING 10 HOUR 21 Because ethnic data is not always readily [...] 15-29 5 Kidney failure <15 (or dialysis) 22 Therapeutic target for the treatment of diabetes Mellitus patients is <7% HBA1C, and in selective patients <6.0%.Please refer to [place] [employer] Diabetic care guidelines for further information. 23 Because ethnic data is not always readily [...] 15-29 5 Kidney failure <15 (or dialysis) 24 Therapeutic target for the treatment of diabetes Mellitus patients is <7% HBA1C, and in selective patients <6.0%.Please refer to [place] [employer] Diabetic care guidelines for further information. 25 PT IS FASTING 26 Desirable <150 Borderline high 150-199 High 200-499 Very High >500 27 Desirable <200 Borderline high 200-239 High >239 28 Low <40 Desirable: 40-60 High: >60 29 Desirable: <100 mg/dL Near Optimal: 100-129 mg/dL Borderline High: 130-159 mg/dL High: 160-189 mg/dL Very High: >189 mg/dL 30 PT IS FASTING 31 PT IS FASTING 32 Therapeutic target for the treatment of diabetes Mellitus patients is <7% HBA1C, and in selective patients <6.0%.Please refer to [place] [employer] Diabetic care guidelines for further information. 33 Normal Range 180 to 914 Indeterminate Range 145 to 180 Deficient Range <145 34 with immunofixation Copy Result to: JESSICA DAVID ([id number]) 35 Test Performed by: [place] [address] Knurling Machine Operator: Jerel Marcelino II, M.D., Ph.D. 36 with immunofixation Copy Result to: JESSICA DAVID ([id number]) 37 with immunofixation Copy Result to: JESSICA DAVID ([id number]) 38 Acute inflammation: >10.00 39 RESULT: No apparent monoclonal protein on serum electrophoresis. Test Performed by: [place] [address] Knurling Machine Operator: Jerel Marcelino II, M.D., Ph.D. 40 Test Performed by: [place] [address] Knurling Machine Operator: Jerel Marcelino II, M.D., Ph.D. 41 Therapeutic target for the treatment of diabetes Mellitus patients is <7% HBA1C, and in selective patients <6.0%.Please refer to [place] [employer] Diabetic care guidelines for further information. 42 REFERENCE VALUE <1.0 (Negative) 43 REFERENCE VALUE <1.0 (Negative) Test Performed by: [place] [address] Knurling Machine Operator: Jerel Marcelino II, M.D., Ph.D. 44 Because ethnic data is not always readily [...] 15-29 5 Kidney failure <15 (or dialysis) 45 SEE RESULT BELOW Name: MONTANA GRIGSBY Lisa Colindres : [address]: Jessica David MD Acct: [id number] Unit: [id number] AGE: 69 Location: [facility] Re05/19/15 SEX: F Status: REG REF SPEC: [id number] WANDER: 05/19/[address] [facility] [address]: Jessica David MD REQ: [id number] RECD: 05/19/15 STATUS: RES _ SOURCE: VAGINAL SPDESC: ORDERED: Cassidy,Yeast DNA, [...] Probe PENDING * ML - MAIN LAB ([facility]) . END OF REPORT * ML=Testing performed at Main Lab DEPARTMENT OF PATHOLOGY, [address] [place] [address] Sourav Coronel M.D. Director [facility] # [id number] 46 SEE RESULT BELOW Name: MONTANA GRIGSBY : [address]: Jessica David MD Acct: [id number] Unit: [id number] AGE: 69 Location: [facility] Re05/19/15 SEX: F Status: REG REF SPEC: [id number] WANDER: 05/19/15110[address] [facility] DR: Jessica David MD REQ: [id number] RECD: 05/19/15 STATUS: COMP _ SOURCE: VAGINAL SPDESC: ORDERED: Cassiyd,Yeast DNA, Trich DNA Procedure Result Verified Site [...] performed at Main Lab DEPARTMENT OF PATHOLOGY, [address] [place] [address] Sourav Coronel M.D. Director [facility] # [id number] Patient: MONTANA GRIGSBY [id number] (Continued) Specimen: [id number] Collected: 05/19/15 Received: 05/19/15-1630 (Continued) Procedure Result Verified Site Trichomonas: Vaginal DNA Probe Final (continued) 05/20/15- 1053 The presence or absence of T. vaginalis cannot be used as a test for therapeutic success or failure. * ML - MAIN LAB ([facility]) . END OF REPORT * ML=Testing performed at Main Lab DEPARTMENT OF PATHOLOGY, [address] [place] [address] Sourav Coronel M.D. Director [facility] # [id number] 47 Desirable <150 Borderline high 150-199 High 200-499 Very High >500 48 Desirable <200 Borderline high 200-239 High >239 49 Low <40 Desirable: 40-60 High: >60 50 Desirable: <100 mg/dL Near Optimal: 100-129 mg/dL Borderline High: 130-159 mg/dL High: 160-189 mg/dL Very High: >189 mg/dL 51 FASTING 52 FASTING 53 Because ethnic data is not always readily [...] 15-29 5 Kidney failure <15 (or dialysis) 54 Desirable <150 Borderline high 150-199 High 200-499 Very High >500 55 Desirable <200 Borderline high 200-239 High >239 56 Low <40 Desirable: 40-60 High: >60 57 Desirable <100 Near Optimal 100-129 Borderline high 130-159 High 160-189 Very High >189 58 Please note: The following may produce a false positive D Dimer test: - Rheumatoid factor greater than 60 IU/ml - Plasma hemoglobin greater than 0.05 gm/dl - Bilirubin greater than 50 mg/dl - Lipids greater than 1000 mg/dl - FDP greater than 20 ug/ml 59 Collected from 01/22/14 0600 through 01/23/14 0535. 60 Desirable <150 Borderline high 150-199 High 200-499 Very High >500 61 Desirable <200 Borderline high 200-239 High >239 62 Low <40 Desirable: 40-60 High: >60 63 Desirable <100 Near Optimal 100-129 Borderline high 130-159 High 160-189 Very High >189 64 Interpretation: 51-80 (increased risk of hypercalciuria) -- REFERENCE VALUE -- 25-HYDROXY D TOTAL (D2+D3) Optimum levels in the healthy population are 20-50, patients with bone disease may benefit from higher levels within this range. Test Performed by: [place] [address] Knurling Machine Operator: Se Mcfarland III, M.D. 65 Because ethnic data is not always readily [...] 15-29 5 Kidney failure <15 (or dialysis) 66 HDL Interpretation: Undesirable: High Risk: Less than 40 mg/dL Desirable: Low Risk: Greater than 60 mg/dL 67 LDL Interpretation: Low Risk Optimal Level: LDL Less than 100 mg/dL Near or Above Optimal: LDL 100-129 mg/dL Borderline High Risk: LDL 130-159 mg/dL High Risk: LDL 160-189 mg/dL Very High Risk: LDL Greater than 189 mg/dL 68 HDL Interpretation: Undesirable: High Risk: Less than 40 MG/DL Desirable: Low Risk: Greater than 60 MG/DL 69 LDL Interpretation: Low Risk Optimal Level: LDL Less than 100 MG/DL Near or Above Optimal: LDL 100-129 MG/DL Borderline High Risk: LDL 130-159 MG/DL High Risk: LDL 160-189 MG/DL Very High Risk: LDL Greater than 189 MG/DL 70 FASTING 71 Because ethnic data is not always readily [...] 15-29 5 Kidney failure <15 (or dialysis) 72 Anion gap measurement may be of limited value in the presence of any alkalosis, especially in a combined acid base disorder. . 73 Because ethnic data is not always readily [...] 15-29 5 Kidney failure <15 (or dialysis) 74 FINAL: NO GROWTH DAY 2 (<1,000 CFU/mL) 75 Anion gap measurement may be of limited value in the presence of any alkalosis, especially in a combined acid base disorder. . 76 A metabolite of Naproxen, O-desmethylnaproxen, has been shown to interfere with the [place] method for measuring total bilirubin. Samples from patients who have taken Naproxen have shown spurious elevation in total bilirubin levels. 77 Because ethnic data is not always readily [...] 15-29 5 Kidney failure <15 (or dialysis) 78 CHOLESTEROL INTERPRETATION: Desirable: Less than 200 MG/DL Borderline-High Risk: 200-239 MG/DL High-Risk: 240 MG/DL and over 79 HDL INTERPRETATION: Undesirable: High Risk: Less than 40 MG/DL Desirable: Low Risk: Greater than 60 MG/DL 80 LDL INTERPRETATION: Low Risk Optimal Level: LDL Less than 100 MG/DL Near or Above Optimal: LDL 100-129 MG/DL Borderline High Risk: LDL 130-159 MG/DL High Risk: LDL 160-189 MG/DL Very High Risk: LDL Greater than 189 MG/DL 81 Neutropenia % Lymphocytosis % 82 New Reference Range and Interpretation effective 05/15/2002 TnI (ng/ml) INTERPRETATION Less Than 0.06 ng/mL NOT SUPPORTIVE OF DIAGNOSIS OF MD 0.06 - 0.50 ng/ml INDETERMINATE: SUGGEST SERIAL STUDIES IF CLINICALLY INDICATED. Greater than 0.5 ng/mL CONSISTENT WITH DIAGNOSIS OF MD . 83 Recommended INR for Patients on Oral Anticoagulants Prophylaxis 2.0 - 3.0 Treatment of thrombosis 2.0 - 3.0 Prevention of embolism 2.0 - 3.0 Prevention of embolism from prosthetic heart valves 2.5 - 3.5 84 DIAGNOSIS,TREATMENT,AND THERAPY MUST BE BASED ON THE INR VALUE ALONE. 85 Anion gap measurement may be of limited value in the presence of any alkalosis, especially in a combined acid base disorder. . 86 Note change in reference range as of 04/01/08. The change was based on recommendations from the [place] [employer]. 87 A metabolite of Naproxen, O-desmethylnaproxen, has been shown to interfere with the [place] method for measuring total bilirubin. Samples from [...] 5 Kidney failure <15 (or dialysis) 89 New Reference Range and Interpretation effective 05/15/2002 TnI (ng/ml) INTERPRETATION Less Than 0.06 ng/mL NOT SUPPORTIVE OF DIAGNOSIS OF MD 0.06 - 0.50 ng/ml INDETERMINATE: SUGGEST SERIAL STUDIES IF CLINICALLY INDICATED. Greater than 0.5 ng/mL CONSISTENT WITH DIAGNOSIS OF MD . 90 Anion gap measurement may be of limited value in the presence of any alkalosis, especially in a combined acid base disorder. . 91 Note change in reference range as of 04/01/08. The change was based on recommendations from the [place] [employer]. 92 A metabolite of Naproxen, O-desmethylnaproxen, has been shown to interfere with the [place] method for measuring total bilirubin. Samples from [...] 5 Kidney failure <15 (or dialysis) 94 Anion gap measurement may be of limited value in the presence of any alkalosis, especially in a combined acid base disorder. . 95 Note change in reference range as of 04/01/08. The change was based on recommendations from the [place] [employer]. 96 Please note change in reference range effective 08 . 97 A metabolite of Naproxen, O-desmethylnaproxen, has been shown to interfere with the [place] method for measuring total bilirubin. Samples from patients who have taken Naproxen have shown spurious elevation in total bilirubin levels. 98 Because ethnic data is not always readily [...] 15-29 5 Kidney failure <15 (or dialysis) 99 CHOLESTEROL INTERPRETATION: Desirable: Less than 200 MG/DL Borderline-High Risk: 200-239 MG/DL High-Risk: 240 MG/DL and over 10 HDL INTERPRETATION: 0 Undesirable: High Risk: Less than 40 MG/DL Desirable: Low Risk: Greater than 60 MG/DL 10 LDL INTERPRETATION: 1 Low Risk Optimal Level: LDL Less than 100 MG/DL Near or Above Optimal: LDL 100-129 MG/DL Borderline High Risk: LDL 130-159 MG/DL High Risk: LDL 160-189 MG/DL Very High Risk: LDL Greater than 189 MG/DL 10 THERAPEUTIC TARGET FOR THE TREATMENT OF DIABETES 2 MELLITUS PATIENTS IS <7% HBA1C, AND IN SELECTIVE PATIENTS <6.0%. PLEASE REFER TO [place] [employer] DIABETIC CARE GUIDELINES FOR FURTHER INFORMATION. 10 PLEASE NOTE NEW REFERENCE RANGES. 3 10 FASTING 4 10 CHOLESTEROL INTERPRETATION: 5 Desirable: Less than 200 MG/DL Borderline-High Risk: 200-239 MG/DL High-Risk: 240 MG/DL and over 10 HDL INTERPRETATION: 6 Undesirable: High Risk: Less than 40 MG/DL Desirable: Low Risk: Greater than 60 MG/DL 10 LDL INTERPRETATION: 7 Low Risk Optimal Level: LDL Less than 100 MG/DL Near or Above Optimal: LDL 100-129 MG/DL Borderline High Risk: LDL 130-159 MG/DL High Risk: LDL 160-189 MG/DL Very High Risk: LDL Greater than 189 MG/DL 10 Note change in reference range as of 04/01/08. The 8 change was based on recommendations from the [place] [employer]. 10 THERAPEUTIC TARGET FOR THE TREATMENT OF DIABETES 9 MELLITUS PATIENTS IS <7% HBA1C, AND IN SELECTIVE PATIENTS <6.0%. PLEASE REFER TO [place] DIABETIC CARE GUIDELINES FOR FURTHER INFORMATION. 11 New Reference Range and Interpretation effective 05/15/02 0 TnI (ng/ml) INTERPRETATION <0.06 ng/ml NOT SUPPORTIVE OF DIAGNOSIS OF MD 0.06 - 0.50 ng/ml INDETERMINATE: SUGGEST SERIAL STUDIES IF CLINICALLY INDICATED. > 0.5 ng/ml CONSISTENT WITH DIAGNOSIS OF MD . 11 Anion gap measurement may be of limited value in the 1 presence of any alkalosis, especially in a combined acid base disorder. . 11 Note change in reference range as of 04/01/08. The 2 change was based on recommendations from the [place] [employer]. 11 Please note change in reference range effective 08 3 . 11 PATIENT MAY HAVE RESULTS PER DOCTOR'S AUTHORIZATION. Questions regarding this report should 4 be directed to your doctor. 11 Classification: Borderline High 5 . 11 Classification: High 6 . 11 CALCULATED LDL APPROXIMATES THE VALUE OF A DIRECT LDL 7 MEASUREMENT. Classification: Near or above optimal . 11 Anion gap measurement may be of limited value in the 8 presence of any alkalosis, especially in a combined acid base disorder. . 11 PLEASE NOTE NEW REFERENCE RANGES. 9 12 ---- 0 RUN DATE: 07/17/07 [facility] NMI LIVE PAGE 1 RUN TIME: 1653 Specimen Inquiry RUN USER: INTERFACE [id number] [place] 61/F <REG REF 07/16> ([id number]) Mehul Zhao MD -- Specimen: [id number] SOUT Spec Date: 07/16/[address]: Sudheer vargas MD Spec Type: SURGICAL P Received: 07/16/07-3727 Copies to: Trip [place] III, MD SPECIMEN BIOPSY POLYP AT 10 CM. HISTORY POST-OP DIAGNOSIS: Small polyp CLINICAL INFORMATION: Patient with change in bowel habit, distant family history of colon carcinoma (paternal Grandmother); siblings and mother - polyps GROSS DESCRIPTION The specimen is received in formalin labelled [place], Biopsy Polyp at 10 cm., and consists of a hull, soft tissue fragment measuring 0.3 x 0.2 x 0.1 cm. Submitted entirely, one cassette. DIAGNOSIS Colon, polyp at 10 cm., biopsy - Hyperplastic polyp. Signed Electronically by: SOURAV CORONEL MD 07/17/07 1652 -- -- DEPARTMENT OF PATHOLOGY, [address] [place] [address] [facility] Permit #[id number] Sourav Coronel M.D. Director of Laboratories -- Procedures Date CPT Code Description Status 05/20/2018 78298 Arthroscopy,Knee,Meniscectomy Medial Or Lateral Completed 05/20/2018 69061 Arthroscopy,Knee,Meniscectomy Medial Or Lateral Completed 04/30/2018 70908 EKG Tracing & Interpretation Completed 03/24/201818285 Inject/Drain Joint/Bursa Major W/O US Completed 03/21/2018 62309 Hysteroscopy, Surgical W/Biopsy Endometrium/Polpectomy Completed W/W/O D&C 10/07/2017 74570 Admin & Interp Of Health Risk Assessment w/ Patient Completed 07/19/2017 Mammogram Completed 04/11/2017 45324 Inject Tendon Sheath Or Ligament Aponeurosis Eg Plantar Completed Fascia 01/08/2017 Mammogram Completed 11/14/2016 80316 Destruction Of Benign Lesions Any Method 1-14 lesions Completed 07/24/2016 61205 EKG Tracing & Interpretation Completed 07/09/2016 Mammogram Completed 11/14/2015 80066 Inject/Drain Joint/Bursa Major W/O US Completed 08/16/2015 51106 Needle Electromyography Each Extremity W/Related Completed Paraspinal Areas 08/16/2015 98309 Nerve Conduction 05-06 Studies Completed 07/05/2015 Mammogram Completed 07/05/2015 Bone Mineral Density Test Completed 03/24/2015 Colonoscopy Completed 11/09/2014 11934 Nerve Conduction 03-04 Studies Completed 11/09/2014 09672 Needle Electromyography Each Extremity W/Related Completed Paraspinal Areas 04/21/2014 33241 Inject Tendon Sheath Or Ligament Aponeurosis Eg Plantar Completed Fascia 01/13/2014 44350 EKG Tracing & Interpretation Completed 12/09/2013 35836 Inject Tendon Sheath Or Ligament Aponeurosis Eg Plantar Completed Fascia 06/12/2013 47237 Xray Knee 3 Views Completed 07/29/2012 68417 Holter Monitor Review (24 hr)dr review & interp only Completed 09/04/2011 82738 EKG Tracing & Interpretation Completed 10/19/2009 94922 Noninvasive Ear Or Pulse Oximetry For Oxygen Saturation Completed 09/26/2009 43654 Spirometry Incl Graphic Record, Timed Expiratory Flow Completed Rate 09/15/2007 81665 Stress Test Supervsn W/Out I/R Completed 09/15/2007 04904 Stress Test Supervsn W/Out I/R Completed 09/15/2007 85078 Treadmill Interp/Report Only Completed 09/10/2007 58297 EKG Tracing & Interpretation Completed 09/10/2007 34852 EKG Tracing & Interpretation Completed 07/16/2007 Colonoscopy Completed 02/18/2006 18841 Color Doppler Completed 02/18/2006 09273 Pulse Doppler & Continuous Wave Completed 02/18/2006 18812 Pulse Doppler & Continuous Wave Completed 02/18/2006 14891 Echocardiogram Completed 06/04/2005 Colonoscopy Completed Encounters Type Date Location Provider CPT E/M Dx Office Visit 04/30/2018 [facility] Internal Medicine Jessica David, 00436 Z01.818 2:20p - [place] Gaspar S83.241A M17.11 E89.0 I10 R73.01 E78.4 Office Visit 04/18/2018 2:45p [facility] Winter M.D. 89853 M25.461 C.M.ASeb M25.561 M17.11 S83.241A Office Visit 04/07/2018 8:15a [facility] Samantha Epstein 15350 M25.461 Of Fab DESAI M25.561 M17.11 Office Visit 03/28/2018 11:00a [facility] [place] [address] Z12.31 [facility] N64.59 N83.202 Office Visit 03/24/2018 9:30a [facility] Jacinda Winter M.D. 92002 M25.561 C.M.ASeb M25.461 M17.11 Office Visit 02/25/2018 1:30p [facility] [place] [address] N84.0 [facility] N83.202 Office Visit 02/11/2018 2:00p [facility] Internal Medicine Nurse Visit C 10709 H61.21 - Van Office Visit 01/13/2018 8:30a [facility] Internal Medicine Jessica David 50315 R73.01 - [place] Gaspar E89.0 Office Visit 12/24/2017 2:00p [facility] Internal Medicine Jessica David 24897 J01.91 - [place] Gaspar R22.41 Office Visit 12/09/2017 8:30a [facility] Internal Medicine - Jessica David 51199 J01.90 Van Gaspar Office Visit 11/14/2017 8:00a [facility] [place] [address] L82.1 L57.0 D22.5 L23.9 Office Visit 10/07/2017 10:30a [facility] Internal Medicine Jessica David M.D. 57770 R05 - [place] Office Visit 09/27/2017 11:40a [facility] Internal Medicine Trip [place], 99417 J20.9 - [place] Gaspar Office Visit 07/25/2017 8:50a [facility] Internal Medicine Jessica David M.D. 26691 K21.9 - Van E03.9 R10.2 M51.36 Z23 Z01.411 Office Visit 05/27/2017 10:30a [facility] Internal Medicine Jessica David M.D. 53209 L29.8 - Van E03.9 Office Visit 04/11/2017 9:00a [facility] Jinny Person 28128 M65.321 Of [place] Gaspar Office Visit 04/10/2017 8:30a [facility] Internal Medicine Jessica David 80122 M79.604 - [place] Gaspar E03.9 R73.01 M79.644 Office Visit 11/14/2016 8:00a [facility] [place] [address] L57.0 L30.9 L82.1 L82.0 R58 L53.8 Z78.9 Office Visit 07/24/2016 8:30a [facility] Internal Medicine Jessica David 09922 Z00.00 - [place] Gaspar M81.0 I10 R73.01 E03.9 Office Visit 04/04/2016 8:50a [facility] Medicine Jessica David M.D. 92291 R35.0 - Van N39.46 Office Visit 03/05/2016 1:40p [facility] [place] Cés[place] [address] J01.10 - [place] Office Visit 01/24/2016 8:30a [facility] Medicine Jessica David 01726 R73.01 - [place] Gaspar M51.17 Office Visit 01/03/2016 10:30a [facility] [place] [address] G60.9 Of [facility] M54.17 Office Visit 12/20/2015 2:20p [facility] Internal Medicine Jessica David 33683 R59.0 - [place] Gaspar Office Visit 11/25/2015 2:30p [facility] Winter M.D. 50076 M25.552 C.MJun M70.62 M16.12 Office Visit 11/14/2015 2:30p [facility] Winter M.D. 67839 M25.552 C.MJun M70.62 M16.12 Office Visit 10/24/2015 10:10a [facility] Internal Medicine Jessica David 20895 R73.01 - [place] Gaspar M81.8 K21.9 Office Visit 09/12/2015 2:30p [facility] [address] G60.9 Of [facility] M54.17 Office Visit 09/08/2015 11:40a [facility] Internal [place] Cés[place] [address] J01.10 - Pretty Office Visit 07/13/2015 10:50a [facility] Internal Medicine Jessica David 80459 M81.8 - [place] Gaspar J01.90 E03.9 Office Visit 07/06/2015 3:00p [facility] [place] [address] M54.17 Services Of [facility] Office Visit 06/17/2015 11:20a [facility] Michael Benito 24980 G57.81 C.MJun Gaspar Office Visit 06/01/2015 2:20p [facility] Michael Benito 85042 G57.81 C.MJun Gaspar M25.371 Office Visit 05/19/2015 10:30a [facility] Internal Medicine Jessica David M.D. 14346 J30.1 - Pretty E78.0 M25.571 N89.8 Z23 Office Visit 12/08/2014 8:00a [facility] Mirza Culver M.D. 51473 355.8 C.M.ASeb Office Visit 11/04/2014 9:50a [facility] Medicine Jessica David M.D. 97684 782.0 - [place] Office Visit 09/21/2014 12:10p [facility] Internal Lon David M.D. 92299 244.9 - [place] 564.00 782.0 380.4 Office Visit 05/13/2014 10:10a [facility] Jessica David M.D. 82947 272.0 - [place] 611.79 784.91 112.9 Office Visit 04/21/2014 9:30a [facility] Mirza Culver 26992 726.61 Fab Gaspar Office Visit 02/03/2014 9:50a [facility] Medicine Jessica David 47352 922.1 - [place] Gaspar 847.2 275.2 276.8 Office Visit 01/20/2014 12:10p [facility] Medicine Jessica David M.D. 78819 847.2 - [place] 276.8 275.41 Office Visit 01/13/2014 2:30p [facility] Medicine Jessica David 70031 794.31 - [place] Gaspar 276.8 847.2 Office Visit 12/09/2013 11:15a [facility] Mirza Culver, 29256 726.61 Fab Gaspar 726.61 Office Visit 11/12/2013 9:50a [facility] Internal Lon David M.D. 05016 272.0 - [place] 786.2 V16.49 Office Visit 10/28/2013 2:00p [facility] Mirza Culver M.D. 23247 727.00 Of Fab Office Visit 10/16/2013 1:15p [facility] Alberto Marcano 32063 836.0 Of Davi FerrellPJun-C Office Visit 09/11/2013 9:30a [facility] Alberto Marcano 20358 727.00 Of Darrel Ferrell.PSebASeb-C Office Visit 06/12/2013 2:00p [facility] Mirza Culver M.D. 36722 726.61 Of Fab 717.7 719.46 Office Visit 06/10/2013 10:10a [facility] Internal Lon David M.D. 61841 848.8 - [place] Office Visit 05/14/2013 9:50a [facility] Medicine Jessica David M.D. 63681 272.0 - [place] 786.2 726.69 Office Visit 04/30/2013 11:10a [facility] Jessica David M.D. 68669 V70.0 - [place] 272.0 786.2 V70.0 V41.2 733.90 V04.81 Office Visit 03/05/2013 9:50a [facility] Jessica David 89643 726.69 - [place] Gaspar 847.0 Office Visit 08/14/2012 3:00p [facility] Trip [place] 14463 785.1 - [place] Gaspar 244.1 786.09 Office Visit 07/09/2012 1:00p [facility] Trip [place] 54714 785.1 - [place] Gaspar 401.9 244.1 272.0 Office Visit 05/29/2012 9:20a [facility] Trip [place], 93603 709.9 - [place] Gaspar Office Visit 01/09/2012 2:40p [facility] Trip [place], 13340 V72.81 - [place] Gaspar 366.9 401.9 724.2 244.1 Office Visit 09/04/2011 9:40a [facility] Trip [place], 06239 785.1 - [place] Gaspar v72.60 Office Visit 04/30/2011 10:40a DO Not Use [facility] AT Trip [place], 48147 788.41 Silvia Gaspar 564.00 244.1 724.2 V04.81 Office Visit 01/29/2011 1:40p DO Not Use [facility] AT [place], 10366 782.7 Silvia Gaspar Office Visit 10/04/2010 10:00a DO Not Use [facility] AT [place], 20004 386.19 Silvia Gaspar Office Visit 07/25/2010 11:00a DO Not Use [facility] AT [place], 30621 780.4 [facility] M.D. 465.9 Office Visit 06/29/2010 1:40p DO Not Use [facility] AT [facility], 33345 783.21 [facility].D. V03.82 V04.89 Office Visit 02/20/2010 1:20p DO Not Use [facility] AT [facility], 67179 466.0 [facility] M.D. Office Visit 01/24/2010 1:40p DO Not Use [facility] AT [facility], 96048 729.92 [facility] M.D. Office Visit 10/19/2009 11:20a DO Not Use [facility] [employer] AT [facility], 15912 472.0 [facility] M.D. 786.2 Office Visit 09/30/2009 9:40a DO Not Use [facility] AT [facility], 78380 786.2 [facility] M.D. Office Visit 09/26/2009 1:20p DO Not Use [facility] AT [facility], 11642 786.2 [facility] M.D. Office Visit 08/18/2009 4:00p DO Not Use [facility] AT [facility], 65397 466.0 [facility] M.D. Office Visit 07/20/2009 2:15p DO Not Use [facility] AT [facility], 52492 401.1 [facility] 272.0 790.21 530.81 709.9 Office Visit 02/08/2009 2:30p [facility], 66620 272.0 [facility] 244.9 724.2 Office Visit 10/14/2008 2:00p [facility], 13974 724.2 [facility].D. Office Visit 08/02/2008 3:00p [facility], 22037 401.1 [facility].D. 244.9 530.81 V72.81 Office Visit 05/17/2008 2:00p [facility], 77105 461.9 [facility] 401.1 719.45 V04.81 Office Visit 04/05/2008 3:30p [facility], 81623 724.2 [facility] 401.1 Office Visit 09/23/2007 2:00p [facility], 50935 786.50 [facility] 401.1 Office Visit 09/10/2007 3:30p [facility], 13295 786.50 [facility] 401.1 Office Visit 05/13/2007 11:00a [facility], 66611 473.9 [facility] 719.41 786.2 Office Visit 02/24/2007 3:00p [facility], 28707 472.0 [facility] V06.1 Plan of Care Future Appointment(s):06/02/2018 9:00 am - Jacinda Winter M.D. at [facility]07/15/2018 9:10 am - Jessica David M.D. at [facility] Internal Medicine - Xfffdbajs67/08/2019 9:00 am - Beto Moran MD at [facility] Ekmvppqxzjq59/ 11/2018 - Martha Berumen MDM17.11 Unilateral primary osteoarthritis, right kneeNew Medication:Cephalexin 500 mgFollow up:Follow up: Dr. Winter fusmwzO62.818 Encounter for other preprocedural examination
--- OUTSIDE RECORDS SUMMARY | 2018-05-26 19:38 | XMS REPORT ---
:1945 External Reference #:[id number] Author Organization [employer] Address [address] [place] [address] Phone [phone] Care Team Providers Name Role Phone Jessica David MD Primary Care Physician Unavailable Payers Type Date Identification Numbers Payment Provider Subscriber Medicare Primary Effective: Policy Number: Medicare [place] Grigsby 2009 [id number] PayID: [id number] [address] [place] [address] Medigap Part B Policy Number: [id number] [facility] [place] Grigs[place] PayID: [id number] [address] [place] [address] Workers Compensation Effective: Policy Number: Jolie Grigsby 2014 [id number] Expires: [address] Onset: 2014 [address] [place] [address] Medigap Part B Effective: Policy Number: United [place] Gonzalez 2012 [id number] [place] Expires: 2014 PayID: [id number] 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 /2014 s Daily Chasity Washington Triamterene/Hy 01/13 Active Capsules 37.5-25mg 90cap Take 1 Jessica drochlorothiaz s Capsule Every David, Morning M.DSeb Citrucel 10/14 Active Packet 1 tbsp qam Trip E. Chasity Washington Calcium + D Active Tablets 600mg 1 PO daily Unknown /0000 Vitamin B Active Tablets 1 PO qd Barken, Complex /0000 MD Srikanth Aspirin Active Tablets 81mg 1 po qd Unknown /0000 Miralax Active Powder 3350NF takes 1/2 Unknown /0000 dose---17 gm every day mixed w/ 8 oz water/juice daily Tylenol PM Active Tablets take as Unknown /0000 prescribed on bottle as needed pain Klor-Con M10 Active Tablets ER 10Meq 180ta Take 2 Jessica /0000 bs Tablets once David, a day M.D. Ibuprofen 03/04 Hx Tablets 600mg 12tab one tablet by Joeorabob s mouth q6 as Esha, - needed pain 03/23 Oxycodone-Acet 03/04 Hx Tablets 5-325mg 8tabs 1 tablet po [facility] aminophen q6 hours prn Esha, - strong pain [...] 75mg 10cap 1 by mouth J20.9 Trip Jimenez Phosphate s twice a day Padmini, - for 5 days M.D. 10/07 Prednisone 05/27 Hx Tablets 10mg qs take 3 tab L29.8 Jessica /2017 daily x 2 David, - days then 2 M.D. 06/04 tab daily x 3 days and then 1 tab daily x 3 days Alendronate 07/24 Hx Tablets 70mg 12tab not M81.8 Jessica Sodium s taking---take David, - 1 tablet by M.D. 12/09 mouth Cefuroxime 03/05 Hx Tablets 250mg 20tab one tablet J01.10 César Axetil s twice daily ERNESTINE Patton - for 10 days. 03/16 Metformin HCL 11/09 Hx Tablets 500mg 60tab 1 by mouth Jessica /2016 s twice a day David, - M.D. 12/19 Gabapentin 09/12 Hx Capsules [...] 1unit apply N76.0 Jessica /2015 s intravaginall Joseph, - y once a day M.D. 06/28 x 7 days Metrogel-Vagin 05/25 Hx Gel 0.75% 70gm once a day X Jessica 7 days Joseph - M.D. 06/21 Synthroid 03/03 Hx Tablets 125mcg 90tab 1 by mouth Jessica s daily 2 times Joseph, - a week M.D. 05/01 with 150 mg daily Synthroid 11/23 Hx Tablets 137mcg 90tab 1 by mouth Jessica s every other Joseph, - day M.D. 03/03 with 150 mcg Synthroid 06/24 Hx Tablets 125mcg 180ta 2 by mouth Jessica bs every day Joseph - M.D. 09/21 Synthroid 06/24 Hx Tablets 150mcg 90tab 1 Tab Daily 5 Jessica s Times A Week Joseph - M.DSeb 05/01 Atorvastatin 05/13 Hx Tablets 10mg 90tab 1 by mouth 272.0 Jessica Calcium s every day Joseph - M.D. 03/03 Nyamyc 05/13 Hx Powder [id number] 100gm apply to 112.9 Jessica t/GM s [...] 90tab 1 po qd 244.1 Trip ESeb s Oscar Washington M.D. 09/04 Synthroid 04/30 Hx Tablets 25mcg 60tab 1 po qd 244.1 Trip Jimenez s Oscar Washington M.D. 09/04 Triamterene/Hy 04/03 Hx Capsules 37.5-25mg 90cap Take 1 Trip Jimenez drochlorothiaz s Capsule Every Padmini martín Oscar Morning Chasity 01/13 Amlodipine 03/11 Hx Tablets 10mg 90tab [...] 10mg 90tab 1 po qd Trip Jimenez s Oscar Washington M.D. 03/11 Relafen 11/04 Hx Tablets 500mg [...] and treatment Oscar Washington for l buttock M.Alireza 02/08 pain /2008 Physical 09/30 Hx 10Vis left Trip Jimenez Therapy its shoulder,arm Padmini, - and abd pain. M.DSeb 02/08 evaluate and treat Nitrostat 09/23 Hx Tablets Sub 0.4mg 25tab one sl q5min Trip Jimenez s up to 3 doses Oscar Washington prn Chasity 10/14 Atenolol 09/23 Hx Tablets 25mg 30tab 1 po bid Trip Jimenez Oscar Gunderson M.D. 05/17 Dyazide 09/10 Hx Capsules 37.5-25 90cap 1 po qam Trip Jimenez Oscar Gunderson M.D. 04/03 Levaquin 05/13 Hx Tablets 500mg 1O 1 po qd x 10 Trip Jimenez days Oscar Washington M.D. 09/10 . 05/13 Hx physical Trip Jimenez therapy: Oscar Washington eval/Rx Joyce.Alireza 09/10 chronic shoulder pain Evista Hx Tablets 60mg 90tab 1 PO qd Unknown /0000 s - 09/11 Albuterol Hx Aerosol 90mcg/Act 1unit 2 Puffs po Jayce /0000 s qid prn Oscar Pizano M.D.,FACP 06/10 Multi-Day 00/00 Hx Tablets 1 PO qd Unknown Vitamins /0000 - 03/05 Metamucil 00/00 Hx Barken, /0000 MD Srikanth - 10/14 Gabapentin / Hx Capsules 100mg 1 po tid Unknown [...] Daily Oscar David M.D. 06/24 Multi Vitamin Hx Tablets not taking Unknown Daily / - 07/23 Fluticasone 00 Hx Suspension 50mcg/Act 32gm 1 squirts Jessica Propionate /0000 each nostril Oscar David every day otc Chasity 12/09 as needed Omeprazole 00/[address] 20mg 1 by mouth Unknown /0000 every day - 10/[address] 20mg 1 by mouth Unknown Magnesium /0000 every day - OTC 12/19 Gabapentin 00 Hx Capsules 100mg 1 by mouth @ Unknown /0000 hs - 07/23 Aleve PM 00 Hx Tablets 220-25mg as needed Unknown /0000 [...] CPT Code Status Date Vaccine Lot # [id number] Given 04/21/2018 Zoster (Shingles) Vaccine (HZV), Recombinant, Subunit, Adjuvanted 74258 Given 04/21/2018 Influenza Virus Vaccine, Quadrivalent, Split, Preservative Free 20928 Given 07/25/2017 Tdap - Tetanus/Diptheria/Acellular Pertussis [id number] 90316 Given 05/01/2017 Influenza Virus Vaccine, Quadrivalent, Split, Preservative Free [id number] Given 05/29/2016 Flu Vaccine NOS 92700 Given 05/19/2015 Pneumococcal Conjugate Vaccine 13 Valent For [id number] Intramuscular Use 42975 Given 04/20/2015 Fluzone High Dose 60468 Given 04/13/2015 Influenza Virus Vaccine, Quadrivalent, Split, Preservative Free [id number] Given 04/30/2014 Fluzone Vaccine 66348 Given 04/30/2013 Flu Vaccine Split Virus Preservative Free For [id number] Indiv 3Yr Older 26270 Given 04/30/2013 Flu Vaccine Split Virus Preservative Free For Indiv 3Yr Older Q2038 Given 05/05/2012 Fluzone Vaccine [id number] Q2038 Given 04/30/2011 Fluzone Vaccine [id number] 71249 Given 06/29/2010 Pneumonia Vaccine [id number] 82907 Given 07/21/2008 Zoster (Zostavax) 19494 Given 07/21/2008 Zoster (Zostavax) [id number] 45457 Given 05/17/2008 Influenza Virus 3Yrs & Over 57080 Given 05/22/2007 Influenza Virus 3Yrs & Over 61341 Given 02/24/2007 Tdap - Tetanus/Diptheria/Acellular Pertussis [id number] Vital Signs Date Vital Result Comment 05/02/2018 Height 64 inches 5'4" Weight 148.00 [...] Mass Index) 26.2 kg/m2 Last Menstrual Period [id number] 01/13/2018 Height 63.4 inches 5'3.40" Weight 149.00 [...] 25, 31 Ua Routine 04/04/2016 Ua Specific Hiram 1.015 Ua PH 6 Ua Color dark [...] Color YELLOW Yellow Appearance-Urine CLEAR Clear Specific Hiram-Ur 1.015 1.010-1.030 Esterase-Urine NEGATIVE Negative Nitrite NEGATIVE Negative Rhcvhlitzuyz-Jn-CJR NEGATIVE Negative Protein-Urine NEGATIVE Negative PH-Urine 8.0 [...] Color YELLOW Yellow Appearance-Urine CLEAR Clear Specific Hiram-Ur 1.011 1.010-1.030 Esterase-Urine NEGATIVE Negative Nitrite NEGATIVE Negative Ktaymwxyoxwr-Ai-NUV NEGATIVE Negative Protein-Urine NEGATIVE Negative PH-Urine 8.0 [...] 08/22/2008 Ua Color YELLOW Appearance-Urine CLEAR Specific Hiram-Ur 1.008 Low 1.010-1.030 Esterase-Urine TRACE Negative Nitrite NEGATIVE Negative Iqutveoltsgw-Sx-FUR NEGATIVE Negative Protein-Urine NEGATIVE Negative PH-Urine 7.0 5-9 Blood-Urine NEGATIVE Negative Ketones-Urine NEGATIVE Negative Bilirubin-Ur NEGATIVE Negative Glucose-Urine NEGATIVE Negative Urinalysis W/Microscopic 08/22/2008 Ua Color YELLOW Appearance-Urine CLEAR Specific Hiram-Ur 1.008 Low 1.010-1.030 Esterase-Urine TRACE Negative Nitrite NEGATIVE Negative Uucmnckijtwn-Qq-DNG NEGATIVE Negative Protein-Urine NEGATIVE Negative PH-Urine 7.0 [...] [address]: Ayesha Balbuena MD Acct: [id number] Unit: [id number] AGE: 72 Location: [place] Re03/21/18 SEX: F Status: VASILIY BROTHERS SPEC: [id number] WANDER: 03/21/18- SUBM DR: Ayesha Balbuena MD REQ: [id number] RECD: 03/21/18 STATUS: SOUT _ ORDERED: LEVEL 4 FINAL [...] 1038 END OF REPORT DEPARTMENT OF PATHOLOGY, [address] [place] [address] Sourav Coronel M.D. Director [facility] # [id number] 2 Because ethnic data is not always [...] <15 (or dialysis) 3 Instrument used is Marianne Anurag DXI 600. The assay is a two-site [...] absence of malignant disease. Test Performed by: [facility] [address] [place] [address] 5 Because ethnic data is not always [...] 5 Kidney failure <15 (or dialysis) 6 Spinning Frame Tender: [id number] 8 SEE RESULT BELOW Name: MON[place] GRIGSBY : [address]: Trip Washington III, MD Acct: [id number] Unit: [id number] AGE: 72 Location: [facility] Re09/27/17 SEX: F Status: REG REF SPEC: [id number] WANDER: 09/27/17-123 [facility] [address]: Trip Washington III, MD REQ: [id number] RECD: 09/27/17 STATUS: COMP [facility] DR: Jessica David MD _ SOURCE: [facility]: ORDERED: Flu A B Request COMMENTS: [id number] Procedure Result Reported Site Rapid Influenza A B Request Final 09/27/17- 1925 ML Specimen received for Influenza A/B Molecular testing * ML - MAIN LAB ([facility]) . END OF REPORT * ML=Testing performed at Main Lab DEPARTMENT OF PATHOLOGY, [address] [place] [address] Sourav Coronel M.D. Director [facility] # [id number] 9 Because ethnic data is not always [...] and in selective patients <6.0%.Please refer to [place] [employer] Diabetic care guidelines for further [...] and in selective patients <6.0%.Please refer to [place] [employer] Diabetic care guidelines for further [...] and in selective patients <6.0%.Please refer to [place] [employer] Diabetic care guidelines for further information. 33 Normal Range 180 to 914 Indeterminate Range 145 to 180 Deficient Range <145 34 with immunofixation Copy Result to: JESSICA DAVID ([id number]) 35 Test Performed by: [place] [address] Washer Operator: Jerel Marcelino II, M.D., Ph.D. 36 with immunofixation Copy Result to: JESSICA DAVID ([id number]) 37 with immunofixation Copy Result to: JESSICA DAVID ([id number]) 38 Acute inflammation: >10.00 39 RESULT: No apparent monoclonal protein on serum electrophoresis. Test Performed by: [place] [address] Washer Operator: Jerel Marcelino II, M.D., Ph.D. 40 Test Performed by: [place] [address] Washer Operator: Jerel Marcelino II, M.D., Ph.D. 41 Therapeutic target for the treatment of diabetes Mellitus patients is <7% HBA1C, and in selective patients <6.0%.Please refer to [place] [employer] Diabetic care guidelines for further information. 42 REFERENCE VALUE <1.0 (Negative) 43 REFERENCE VALUE <1.0 (Negative) Test Performed by: [address] [address] Washer Operator: Jerel Marcelino II, M.D., Ph.D. 44 [...] 45 SEE RESULT BELOW Name: MON[place] GRIGSBY : [address]: Jessica David MD Acct: [id number] Unit: [id number] AGE: 69 Location: [facility] Re05/19/15 SEX: F Status: REG REF SPEC: [id number] WANDER: 05/19/15-1106 [facility] [address]: Jessica David MD REQ: [id number] RECD: 05/19/15 STATUS: RES _ SOURCE: VAGINAL [...] Probe PENDING * ML - MAIN LAB ([facility]) . END OF REPORT * ML=Testing performed at Main Lab DEPARTMENT OF PATHOLOGY, [address] [place] [address] Sourav Coronel M.D. Director [facility] # [id number] 46 SEE RESULT BELOW Name: MONTANA GRIGSBY : [address]: Jessica David MD Acct: [id number] Unit: [id number] AGE: 69 Location: [facility] Re05/19/15 SEX: F Status: REG REF SPEC: [id number] WANDER: 05/19/[address]: Jessica Daivd MD REQ: [id number] RECD: 05/19/15 STATUS: COMP _ SOURCE: VAGINAL [...] ON NEXT PAGE * ML=Testing performed at [facility] DEPARTMENT OF PATHOLOGY, [address] [place] [address] Sourav Coronel M.D. Director [facility] # [id number] Patient: MONTANA GRIGSBY P [id number] (Continued) Specimen: [id number] Collected: 05/19/15 Received: 05/19/15 (Continued) Procedure Result Verified Site Trichomonas: Vaginal DNA Probe Final (continued) 05/20/151052 The presence or absence of T. vaginalis cannot be used as a test for therapeutic success or failure. * ML - MAIN LAB ([facility]) . END OF REPORT * ML=Testing performed at Main Lab DEPARTMENT OF PATHOLOGY, [address] [place] [address] Sourav Coronel M.D. Director [facility] # [id number] 47 Desirable <150 Borderline high 150-199 High [...] levels within this range. Test Performed by: [facility] - [address] [address] Washer Operator: Se Mcfarland III, M.D. 65 Because [...] 0.06 ng/mL NOT SUPPORTIVE OF DIAGNOSIS OF NV 0.06 - 0.50 ng/ml INDETERMINATE: SUGGEST SERIAL STUDIES IF CLINICALLY INDICATED. Greater than 0.5 ng/mL CONSISTENT WITH DIAGNOSIS OF NV . 83 Recommended INR for Patients on [...] change was based on recommendations from the [place] [employer]. 87 A metabolite of Naproxen, O-desmethylnaproxen, has been shown to interfere with the Jendrassik-Paulina method for measuring total bilirubin. Samples from [...] 0.06 ng/mL NOT SUPPORTIVE OF DIAGNOSIS OF NV 0.06 - 0.50 ng/ml INDETERMINATE: SUGGEST SERIAL STUDIES IF CLINICALLY INDICATED. Greater than 0.5 ng/mL CONSISTENT WITH DIAGNOSIS OF NV . 90 Anion gap measurement may be of limited value in the presence of any alkalosis, especially in a combined acid base disorder. . 91 Note change in reference range as of 04/01/08. The change was based on recommendations from the [place] [employer]. 92 A metabolite of Naproxen, O-desmethylnaproxen, has been shown to interfere with the Jendrassik-Paulina method for measuring total bilirubin. Samples from [...] change was based on recommendations from the [place] [employer]. 96 Please note change in [...] IN SELECTIVE PATIENTS <6.0%. PLEASE REFER TO [place] [employer] DIABETIC CARE GUIDELINES FOR FURTHER [...] change was based on recommendations from the [place] [employer]. 10 THERAPEUTIC TARGET FOR THE TREATMENT OF DIABETES 9 MELLITUS PATIENTS IS <7% HBA1C, AND IN SELECTIVE PATIENTS <6.0%. PLEASE REFER TO [place] [employer] DIABETIC CARE GUIDELINES FOR FURTHER INFORMATION. 11 New Reference Range and Interpretation effective 05/15/02 0 TnI (ng/ml) INTERPRETATION <0.06 ng/ml NOT SUPPORTIVE OF DIAGNOSIS OF NV 0.06 - 0.50 ng/ml INDETERMINATE: SUGGEST SERIAL STUDIES IF CLINICALLY INDICATED. > 0.5 ng/ml CONSISTENT WITH DIAGNOSIS OF NV . 11 Anion gap measurement may be of limited value in the 1 presence of any alkalosis, especially in a combined acid base disorder. . 11 Note change in reference range as of 04/01/08. The 2 change was based on recommendations from the [place] [employer]. 11 Please note change in [...] 9 12 ---- 0 RUN DATE: 07/17/07 [facility] NMI LIVE PAGE 1 RUN TIME: 1653 Specimen Inquiry RUN USER: INTERFACE [id number] MONTANA GRIGSBY 61/F <REG REF 07/16> ([id number]) ARNAUD Calhoun MD, Mehul Us -- Specimen: [id number] SOUT Spec Date: 07/16/[address]: Sudheer vargas MD Spec Type: SURGICAL P Received: 07/16/07-1328 Copies to: Trip Washington III, MD SPECIMEN [...] 07/17/07 1652 -- -- DEPARTMENT OF PATHOLOGY, [address] [place] [address] [facility] Permit #[id number] Sourav Coronel M.D. Director of [facility] -- Procedures Date CPT Code Description Status 04/30/2018 69539 EKG Tracing & Interpretation Completed 03/24/201891121 Inject/Drain Joint/Bursa Major W/O US Completed 03/21/2018 21816 Hysteroscopy, Surgical W/Biopsy Endometrium/Polpectomy Completed W/W/O D&C 10/07/2017 98153 Admin & Interp Of Health Risk Assessment w/ Patient Completed 07/19/2017 Mammogram Completed 04/11/2017 85581 Inject Tendon Sheath Or Ligament Aponeurosis Eg Plantar Completed Fascia 01/08/2017 Mammogram Completed 11/14/2016 65235 Destruction Of Benign Lesions Any Method 1-14 lesions Completed 07/24/2016 74381 EKG Tracing & Interpretation Completed 07/09/2016 Mammogram Completed 11/14/2015 35715 Inject/Drain Joint/Bursa Major W/O US Completed 08/16/2015 37246 Nerve Conduction 05-06 Studies Completed 08/16/2015 21598 Needle Electromyography Each Extremity W/Related Completed Paraspinal Areas 07/05/2015 Mammogram Completed 07/05/2015 Bone Mineral Density Test Completed 03/24/2015 Colonoscopy Completed 11/09/2014 52851 Nerve Conduction 03-04 Studies Completed 11/09/2014 89174 Needle Electromyography Each Extremity W/Related Completed Paraspinal Areas 04/21/2014 17076 Inject Tendon Sheath Or Ligament Aponeurosis Eg Plantar Completed Fascia 01/13/2014 85670 EKG Tracing & Interpretation Completed 12/09/2013 18267 Inject Tendon Sheath Or Ligament Aponeurosis Eg Plantar Completed Fascia 06/12/2013 51962 Xray Knee 3 Views Completed 07/29/2012 10000 Holter Monitor Review (24 hr)dr review & interp only Completed 09/04/2011 45050 EKG Tracing & Interpretation Completed 10/19/2009 56187 Noninvasive Ear Or Pulse Oximetry For Oxygen Saturation Completed 09/26/2009 30824 Spirometry Incl Graphic Record, Timed Expiratory Flow Completed Rate 09/15/2007 12378 Stress Test Supervsn W/Out I/R Completed 09/15/2007 75908 Stress Test Supervsn W/Out I/R Completed 09/15/2007 30365 Treadmill Interp/Report Only Completed 09/10/2007 22600 EKG Tracing & Interpretation Completed 09/10/2007 02592 EKG Tracing & Interpretation Completed 07/16/2007 Colonoscopy Completed 02/18/2006 59341 Color Doppler Completed 02/18/2006 75328 Pulse Doppler & Continuous Wave Completed 02/18/2006 86400 Pulse Doppler & Continuous Wave Completed 02/18/2006 03536 Echocardiogram Completed 06/04/2005 Colonoscopy Completed Encounters Type Date Location Provider CPT E/M Dx Office Visit 04/18/2018 [facility] Jacinda Winter M.D. 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 73385 M25.561 Fab Thompson5.461 M17.11 Office Visit 02/25/2018 1:30p [facility] [place] [address] N84.0 [facility] N83.202 Office Visit 02/11/2018 2:00p [facility] Internal Medicine Nurse Visit C 44515 H61.21 - [place] Office Visit 01/13/2018 8:30a [facility] Internal Medicine Jessica David 33249 R73.01 - [place] E89.0 Office Visit 12/24/2017 2:00p [facility] Internal Medicine Jessica David 04434 J01.91 - [place] R22.41 Office Visit 12/09/2017 8:30a [facility] Internal Medicine - Jessica David 96535 J01.90 [place] Office Visit 11/14/2017 8:00a [facility] [place] [address] L82.1 L57.0 D22.5 L23.9 Office Visit 10/07/2017 10:30a [facility] Internal Medicine Jessica David M.D. 10255 R05 - Van Office Visit 09/27/2017 11:40a [facility] Internal Medicine Trip Washington, 82975 J20.9 - [place] Office Visit 07/25/2017 8:50a [facility] Internal Medicine Jessica David M.D. 31241 K21.9 - [place] E03.9 R10.2 M51.36 Z23 Z01.411 Office Visit 05/27/2017 10:30a [facility] Internal Medicine Jessica David M.D. 76616 L29.8 - Van E03.9 Office Visit 04/11/2017 9:00a [facility] Jinny Person, 69658 M65.321 Of [place] Gas[place] Office Visit 04/10/2017 8:30a [facility] Internal Medicine Jessica David 84067 M79.604 - [place] E03.9 R73.01 M79.644 Office Visit 11/14/2016 8:00a [facility] [place] [address] L57.0 L30.9 L82.1 L82.0 R58 L53.8 Z78.9 Office Visit 07/24/2016 8:30a [facility] Internal Medicine Jessica David 31299 Z00.00 - [place] M81.0 I10 R73.01 E03.9 Office Visit 04/04/2016 8:50a [facility] Internal Medicine Jessica David M.D. 56228 R35.0 - Van N39.46 Office Visit 03/05/2016 1:40p [facility] Internal Medicine Cés[place] [address] J01.10 - [place] Office Visit 01/24/2016 8:30a [facility] Internal Medicine Jessica David 47680 R73.01 - [place] Gas[place] M51.17 Office Visit 01/03/2016 10:30a [facility] [place] [address] G60.9 Of [facility] M54.17 Office Visit 12/20/2015 2:20p [facility] Internal Medicine Jessica David 89980 R59.0 - [place] Office Visit 11/25/2015 2:30p [facility] Of Jacinda Winter M.D. 91147 M25.552 C.M.A. M70.62 M16.12 Office Visit 11/14/2015 2:30p [facility] Of Jacinda Winter M.D. 69329 M25.552 C.M.A. M70.62 M16.12 Office Visit 10/24/2015 10:10a [facility] Internal Medicine Jessica David 96698 R73.01 - [place] M81.8 K21.9 Office Visit 09/12/2015 2:30p [facility] [place] [address] G60.9 Of [facility] M54.17 Office Visit 09/08/2015 11:40a [facility] Internal Medicine Cés[place] [address] J01.10 - [place] Office Visit 07/13/2015 10:50a [facility] Internal Medicine Jessica David 17407 M81.8 - [place] J01.90 E03.9 Office Visit 07/06/2015 3:00p [facility] [place] [address] M54.17 Services Of [facility] Office Visit 06/17/2015 11:20a [facility] Of Michael Benito, 83603 G57.81 C.MJun Gaspar Office Visit 06/01/2015 2:20p [facility] Of Michael Benito, 71489 G57.81 C.MJun Gaspar M25.371 Office Visit 05/19/2015 10:30a [facility] Internal Medicine Jessica David M.D. 93301 J30.1 - [place] E78.0 M25.571 N89.8 Z23 Office Visit 12/08/2014 8:00a [facility] Of Mirza Culver M.D. 70559 355.8 C.M.ASeb Office Visit 11/04/2014 9:50a [facility] Internal Lon David M.D. 99867 782.0 - [place] Office Visit 09/21/2014 12:10p [facility] [facility] Jessica David M.D. 54435 244.9 - [place] 564.00 782.0 380.4 Office Visit 05/13/2014 10:10a [facility] Internal Lon David M.D. 25242 272.0 - [place] 611.79 784.91 112.9 Office Visit 04/21/2014 9:30a [facility] 48083 726.61 CJeremías Gaspar Office Visit 02/03/2014 9:50a [facility] Internal Lon David 85395 922.1 - [place] 847.2 275.2 276.8 Office Visit 01/20/2014 12:10p [facility] Internal Medicine Jessica David M.D. 04202 847.2 - [place] 276.8 275.41 Office Visit 01/13/2014 2:30p [facility] Internal Lon David 89865 794.31 - [place] 276.8 847.2 Office Visit 12/09/2013 11:15a [facility] 13063 726.61 C.MJun Gaspar 726.61 Office Visit 11/12/2013 9:50a [facility] Internal Medicine Jessica David M.D. 51881 272.0 - [place] 786.2 V16.49 Office Visit 10/28/2013 2:00p [facility] Mirza Culver M.D. 98502 727.00 Of [place] Office Visit 10/16/2013 1:15p [facility] Alberto Marcano 30531 836.0 Of Ladan Ferrell Office Visit 09/11/2013 9:30a [facility] Alberto Marcano 14303 727.00 Of Ladan Ferrell Office Visit 06/12/2013 2:00p [facility] Mirza Culver M.D. 77899 726.61 Of [place] 717.7 719.46 Office Visit 06/10/2013 10:10a [facility] Internal Medicine Jessica David M.D. 17015 848.8 - [place] Office Visit 05/14/2013 9:50a [facility] Medicine Jessica David M.D. 62625 272.0 - [place] 786.2 726.69 Office Visit 04/30/2013 11:10a [facility] Internal Medicine Jessica David M.D. 37856 V70.0 - [place] 272.0 786.2 V70.0 V41.2 733.90 V04.81 Office Visit 03/05/2013 9:50a [facility] Internal Medicine Jessica David 26603 726.69 - [place] 847.0 Office Visit 08/14/2012 3:00p [facility] Internal Medicine [place] 52742 785.1 - [place] 244.1 786.09 Office Visit 07/09/2012 1:00p [facility] Internal Medicine [place] 58938 785.1 - [place] 401.9 244.1 272.0 Office Visit 05/29/2012 9:20a [facility] Internal Medicine [place] 03429 709.9 - [place] Office Visit 01/09/2012 2:40p [employer] Internal Medicine [facility], 52857 V72.81 - [place] 366.9 401.9 724.2 244.1 Office Visit 09/04/2011 9:40a [facility] [place] 61885 785.1 - [place] v72.60 Office Visit 04/30/2011 10:40a DO Not Use Senior Windows Administrator AT [facility], 56131 788.41 [place] M.D. 564.00 244.1 724.2 V04.81 Office Visit 01/29/2011 1:40p DO Not Use [employer] AT [facility], 01772 782.7 [place] M.D. Office Visit 10/04/2010 10:00a DO Not Use Senior Windows Administrator AT [facility], 46846 386.19 [place] M.D. Office Visit 07/25/2010 11:00a DO Not Use Senior Windows Administrator AT [facility], 96796 780.4 [place] M.D. 465.9 Office Visit 06/29/2010 1:40p DO Not Use Senior Windows Administrator AT [facility], 57606 783.21 [place] M.D. V03.82 V04.89 Office Visit 02/20/2010 1:20p DO Not Use Senior Windows Administrator AT [facility], 42974 466.0 [place] M.D. Office Visit 01/24/2010 1:40p DO Not Use Senior Windows Administrator AT [facility], 53360 729.92 [place] M.D. Office Visit 10/19/2009 11:20a DO Not Use Senior Windows Administrator AT [facility], 02782 472.0 [place] M.D. 786.2 Office Visit 09/30/2009 9:40a DO Not Use Senior Windows Administrator AT [facility], 87162 786.2 [place] M.D. Office Visit 09/26/2009 1:20p DO Not Use Senior Windows Administrator AT [facility], 07595 786.2 [place] M.D. Office Visit 08/18/2009 4:00p DO Not Use Senior Windows Administrator AT [facility], 24221 466.0 [place] M.D. Office Visit 07/20/2009 2:15p DO Not Use Senior Windows Administrator AT [facility], 28009 401.1 [facility] 272.0 790.21 530.81 709.9 Office Visit 02/08/2009 2:30p [facility] AT [facility], 84022 272.0 [facility].D. 244.9 724.2 Office Visit 10/14/2008 2:00p [facility] AT [facility], 39828 724.2 [facility] M.D. Office Visit 08/02/2008 3:00p [facility] AT [facility], 17409 401.1 [facility].D 244.9 530.81 V72.81 Office Visit 05/17/2008 2:00p [facility] AT [facility], 08337 461.9 [facility].D. 401.1 719.45 V04.81 Office Visit 04/05/2008 3:30p [facility] AT [facility], 51863 724.2 [facility].D. 401.1 Office Visit 09/23/2007 2:00p [facility] AT [facility], 32938 786.50 [facility].D. 401.1 Office Visit 09/10/2007 3:30p [facility] AT [facility], 06260 786.50 [facility].D. 401.1 Office Visit 05/13/2007 11:00a [facility] AT [facility], 97403 473.9 [facility].D. 719.41 786.2 Office Visit 02/24/2007 3:00p [facility] AT [facility], 68603 472.0 [facility] M.D. V06.1 Plan of Care Future Appointment(s):06/02/2018 9:00 am - Jacinda Winter M.D. at [facility]05/20/2018 7:30 am - Jacinda Winter M.D. at [facility]07/15/2018 9:10 am - Jessica David M.D. at [facility] Medicine - Dgectixef86/08/2019 9:00 am - Beto Moran MD at [facility] Ioyfxefczrr76/ 21/2018 - Jacinda Winter M.D.M17.11 Unilateral primary osteoarthritis, right kneeFollow up:Follow up: 2 weeks after dfwrygyR08.461 Effusion, right kneeS83.241A Oth tear of medial meniscus, current injury, r knee, init
--- OUTSIDE RECORDS SUMMARY | 2018-05-26 19:39 | XMS REPORT ---
:1945 External Reference #:[id number] Author Organization [employer] Address [address] [place] [address] Phone [phone] Care Team Providers Name Role Phone Jessica David MD Primary Care Physician Unavailable Payers Type Date Identification Numbers Payment Provider Subscriber Medicare Primary Effective: Policy Number: Medicare [place] Grigsby 2009 [id number] PayID: [id number] [address] [place] [address] Medigap Part B Policy Number: [id number] [facility] [place] Grigs[place] PayID: [id number] [address] [phone] Workers Compensation Effective: Policy Number: Jolie Grigsby 2014 [id number] Expires: [address] Onset: 2014 [address] [place] [address] Medigap Part B Effective: Policy Number: United [place] Gonzalez 2012 [id number] [place] Expires: 2014 PayID: [id number] 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 /2014 s Daily Chasity Washington Synthroid 03/03 Active Tablets 125mcg 90tab 1 by mouth Jessica s daily 2 times David, a week M.D. alternating with 150 mg daily Synthroid 06/24 Active Tablets 150mcg 90tab 1 Tab Daily 5 Jessica s Times A Week Chasity David Triamterene/Hy 01/13 Active Capsules 37.5-25mg 90cap Take 1 Jessica drochlorothiaz s Capsule Every David, Morning M.D. Citrucel 10/14 Active Packet 1 tbsp qam Trip E. Chasity Washington Calcium + D Active Tablets 600mg 1 PO daily Unknown /0000 Vitamin B Active Tablets 1 PO qd Miller Complex /0000 MD Srikanth Aspirin Active Tablets 81mg 1 po qd Unknown /0000 Miralax Active Powder 3350NF takes 1/2 Unknown /0000 dose---17 gm every day mixed w/ 8 oz water/juice daily Tylenol PM Active Tablets take as Unknown /0000 prescribed on bottle as needed pain Klor-Con M10 Active Tablets ER 10Meq 180ta Take 2 Jessica / bs Tablets once David, a day M.DSeb Ibuprofen 03/04 Hx Tablets 600mg 12tab one tablet by Dvorah s mouth q6 as [place], - needed pain 03/23 Oxycodone-Acet 03/04 Hx Tablets 5-325mg 8tabs 1 tablet po Dvora aminophen q6 hours prn Esha, - strong pain 03/23 Doxycycline 12/24 Hx Tablets 100mg 20tab 1 tablet J01.91 Jessica Hyclate /2017 s twice a day x David, - [...] Capsules 75mg 10cap 1 by mouth J20.9 Tirp Serra. Phosphate s twice a day Padmini, - for 5 days M.D. 10/07 Prednisone 05/27 Hx Tablets 10mg qs take 3 tab L29.8 daily x 2 David, - days then 2 M.D. 06/04 tab daily x days and then 1 tab daily x 3 days Alendronate 07/24 Hx Tablets 70mg 12tab not M81.8 Jessica Sodium /2015 s taking---take David, - 1 tablet by M.D. 12/09 mouth Cefuroxime 03/05 Hx Tablets 250mg 20tab one tablet J01.10 César Axetil /2015 s twice daily ERNESTINE [...] a day X Jessica al 7 days Joseph, - M.D. 06/21 Synthroid 11/23 Hx Tablets 137mcg 90tab 1 by mouth s every other Joseph, - day M.D. 03/03 with 150 mcg Synthroid 06/24 Hx Tablets 125mcg 180ta 2 by mouth bs every day Joseph, - M.D. 09/21 Atorvastatin 05/13 Hx Tablets 10mg 90tab 1 by mouth 272.0 Jessica Calcium s every day Joseph, - M.D. 03/03 Nyamyc 05/13 Hx Powder [id number] 100gm apply to 112.9 Jessica /2014 t/GM s affected area Joseph, - twice [...] 60tab 1 po qd 244.1 Trip ESeb s Oscar Washington M.D. 09/04 Triamterene/Hy 04/03 Hx Capsules 37.5-25mg 90cap Take 1 Trip Jimenez drochlorothiaz s Capsule Every martín Washington M.D. 01/13 Amlodipine 03/11 Hx Tablets 10mg [...] Tablets 10mg 90tab 1 po qd Trip ESeb s Oscar Washington M.D. 03/11 Relafen 11/04 Hx Tablets 500mg 60tab 1 po bid with Trip Jimenez s food Oscar Washington M.D. 02/08 Norvasc 05/17 Hx Tablets 5mg 90tab 1 po qd Tirp Jimenez s Oscar Washington M.D. 07/20 Zithromax 05/17 Hx Tablets 250mg 1Pack as per Trip Jimenez Z- directions Oscar Washington M.D. 08/02 Physical 04/05 Hx PT evaluation Trip Jimenez Therapy and treatment Oscar Washington for l buttock M.Alireza 02/08 pain Physical 09/30 Hx 10Vis left Trip Jimenez Therapy its shoulder,arm Oscar Washington and abd pain. Joyce.DSeb 02/08 evaluate and treat Nitrostat 09/23 Hx Tablets Sub 0.4mg 25tab one sl q5min Trip Jimenez s up to 3 doses Oscar Washington M.D. 10/14 Atenolol 09/23 Hx Tablets 25mg 30tab 1 po bid Trip Jimenez Oscar Gunderson M.D. 05/17 Dyazide 09/10 Hx Capsules 37.5-25 90cap 1 po qam Trip Jimenez s Oscar Washington M.D. 04/03 Levaquin 05/13 Hx Tablets 500mg 1O 1 po qd x 10 Trip Jimenez days Oscar Washington M.D. 09/10 . 05/13 Hx physical Trip Jimenez therapy: Oscar Washington/Rx Chasity 09/10 chronic r shoulder pain Evista Hx Tablets 60mg 90tab 1 PO qd Unknown /0000 s - 09/11 Albuterol Hx Aerosol 90mcg/Act 1unit 2 Puffs po Jayce /0000 s qid prn Oscar Pizano M.D.,FACP 06/10 Multi-Day 00/00 Hx Tablets 1 PO qd Unknown Vitamins /0000 - 03/05 Metamucil 00/ Hx Barken, /0000 MD Srikanth - 10/14 [...] 1 squirts Jessica Propionate /0000 each nostril Joseph - every day otc Chasity 12/09 as needed [...] CPT Code Status Date Vaccine Lot # [id number] Given 04/21/2018 Zoster (Shingles) Vaccine (HZV), Recombinant, Subunit, Adjuvanted 75770 Given 04/21/2018 Influenza Virus Vaccine, Quadrivalent, Split, Preservative Free 43447 Given 07/25/2017 Tdap - Tetanus/Diptheria/Acellular Pertussis [id number] 82995 Given 05/01/2017 Influenza Virus Vaccine, Quadrivalent, Split, Preservative Free [id number] Given 05/29/2016 Flu Vaccine NOS 79450 Given 05/19/2015 Pneumococcal Conjugate Vaccine 13 Valent For [id number] Intramuscular Use 03257 Given 04/20/2015 Fluzone High Dose 59847 Given 04/13/2015 Influenza Virus Vaccine, Quadrivalent, Split, Preservative Free Q2038 Given 04/30/2014 Fluzone Vaccine 21634 Given 04/30/2013 Flu Vaccine Split Virus Preservative Free For [id number] Indiv 3Yr Older 77062 Given 04/30/2013 Flu Vaccine Split Virus Preservative Free For Indiv 3Yr Older Q2038 Given 05/05/2012 Fluzone Vaccine [id number] Q2038 Given 04/30/2011 Fluzone Vaccine [id number] 15416 Given 06/29/2010 Pneumonia Vaccine [id number] 11442 Given 07/21/2008 Zoster (Zostavax) 02752 Given 07/21/2008 Zoster (Zostavax) [id number] 02981 Given 05/17/2008 Influenza Virus 3Yrs & Over 17562 Given 05/22/2007 Influenza Virus 3Yrs & Over 68711 Given 02/24/2007 Tdap - Tetanus/Diptheria/Acellular Pertussis [id number] Vital Signs Date Vital Result Comment 04/30/2018 Height 64 inches 5'4" Weight 148.00 [...] Mass Index) 26.2 kg/m2 Last Menstrual Period [id number] 01/13/2018 Height 63.4 inches 5'3.40" Weight 149.00 [...] Test Date Test Result H/L Range Note Order 04/30/2018 EKG <pending> Laboratory test finding 04/28/2018 TSH (Thyroid Stim [...] 25, 31 Ua Routine 04/04/2016 Ua Specific [place] 1.015 Ua PH 6 Ua Color dark [...] Color YELLOW Yellow Appearance-Urine CLEAR Clear Specific [place]-Ur 1.015 1.010-1.030 Esterase-Urine NEGATIVE Negative Nitrite NEGATIVE Negative Ysnbwpkdaarn-Lt-WWH NEGATIVE Negative Protein-Urine NEGATIVE Negative PH-Urine 8.0 [...] Color YELLOW Yellow Appearance-Urine CLEAR Clear Specific [place]-Ur 1.011 1.010-1.030 Esterase-Urine NEGATIVE Negative Nitrite NEGATIVE Negative Fzegwiicxnfn-Cg-VWU NEGATIVE Negative Protein-Urine NEGATIVE Negative PH-Urine 8.0 [...] 08/22/2008 Ua Color YELLOW Appearance-Urine CLEAR Specific [place]-Ur 1.008 Low 1.010-1.030 Esterase-Urine TRACE Negative Nitrite NEGATIVE Negative Rytaqtswmefz-Ou-INW NEGATIVE Negative Protein-Urine NEGATIVE Negative PH-Urine 7.0 5-9 Blood-Urine NEGATIVE Negative Ketones-Urine NEGATIVE Negative Bilirubin-Ur NEGATIVE Negative Glucose-Urine NEGATIVE Negative Urinalysis W/Microscopic 08/22/2008 Ua Color YELLOW Appearance-Urine CLEAR Specific [place]-Ur 1.008 Low 1.010-1.030 Esterase-Urine TRACE Negative Nitrite NEGATIVE Negative Rdcnowiruhvq-Vt-OWP NEGATIVE Negative Protein-Urine NEGATIVE Negative PH-Urine 7.0 [...] [address]: Ayesha Balbuena MD Acct: [id number] Unit: [id number] AGE: 72 Location: [place] Re03/21/18 SEX: F Status: VASILIY BROTHERS SPEC: [id number] WANDER: 03/21/18- SUBM DR: Ayesha Balbuena MD REQ: [id number] RECD: 03/21/18 STATUS: SOUT _ ORDERED: LEVEL [...] 1038 END OF REPORT DEPARTMENT OF PATHOLOGY, [address] [place] [address] Sourav Coronel M.D. Director [facility] # [id number] 2 Because ethnic data is not always [...] <15 (or dialysis) 3 Instrument used is [employer] DXI 600. The assay is a two-site [...] absence of malignant disease. Test Performed by: [facility] [address] [place] [address] 5 Because ethnic data is not always [...] 5 Kidney failure <15 (or dialysis) 6 Superintendent Greens: [id number] SEE RESULT BELOW Name: [place] GRIGSBY : [address]: Trip Washington III, MD Acct: [id number] Unit: [id number] AGE: 72 Location: [facility] Re09/27/17 SEX: F Status: REG REF SPEC: [id number] WANDER: 09/27/17-[address] [facility] [address]: Trip Washington III, MD REQ: [id number] RECD: 09/27/17 STATUS: HEMANT MARKS DR: Jessica David MD _ SOURCE: [facility]: ORDERED: Flu A B Request COMMENTS: [id number] Procedure Result Reported Site Rapid Influenza A B Request Final 09/27/17- 1925 ML Specimen received for Influenza A/B Molecular testing * ML - MAIN LAB ([facility]) . END OF REPORT * ML=Testing performed at Main Lab DEPARTMENT OF PATHOLOGY, [address] [place] [address] Sourav Coronel M.D. Director [facility] # [id number] 9 Because ethnic data is not always [...] and in selective patients <6.0%.Please refer to [place] [employer] Diabetic care guidelines for further [...] and in selective patients <6.0%.Please refer to [place] [employer] Diabetic care guidelines for further [...] and in selective patients <6.0%.Please refer to [place] [employer] Diabetic care guidelines for further information. 33 Normal Range 180 to 914 Indeterminate Range 145 to 180 Deficient Range <145 34 with immunofixation Copy Result to: JESSICA DAVID ([id number]) 35 Test Performed by: [place] [address] Past Due Accounts Clerk: Jerel Marcelino II, M.D., Ph.D. 36 with immunofixation Copy Result to: JESSICA DAVID ([id number]) 37 with immunofixation Copy Result to: JESSICA DAVID ([id number]) 38 Acute inflammation: >10.00 39 RESULT: No apparent monoclonal protein on serum electrophoresis. Test Performed by: [place] [address] Past Due Accounts Clerk: Jerel Marcelino II, M.D., Ph.D. 40 Test Performed by: [place] [address] Past Due Accounts Clerk: Jerel Marcelino II, M.D., Ph.D. 41 Therapeutic target for the treatment of diabetes Mellitus patients is <7% HBA1C, and in selective patients <6.0%.Please refer to [place] [employer] Diabetic care guidelines for further information. 42 REFERENCE VALUE <1.0 (Negative) 43 REFERENCE VALUE <1.0 (Negative) Test Performed by: [place] [address] Past Due Accounts Clerk: Jerel Marcelino II, M.D., Ph.D. 44 Because [...] [address]: Jessica David MD Acct: [id number] Unit: [id number] AGE: 69 Location: [facility] Re05/19/15 SEX: F Status: REG REF SPEC: [id number] WANDER: 05/19/15-[address]: Jessica David MD REQ: [id number] RECD: 05/19/15 STATUS: RES _ SOURCE: VAGINAL [...] Probe PENDING * ML - MAIN LAB ([facility]) . END OF REPORT * ML=Testing performed at Main Lab DEPARTMENT OF PATHOLOGY, [address] [place] [address] Sourav Coronel M.D. Director [facility] # [id number] 46 SEE RESULT BELOW Name: MON[place] GRIGSBY : [address]: Jessica David MD Acct: [id number] Unit: [id number] AGE: 69 Location: [facility] Re05/19/15 SEX: F Status: REG REF SPEC: [id number] WANDER: 05/19/15-[address] [facility] [address]: Jessica David MD REQ: [id number] RECD: 05/19/15 STATUS: COMP _ SOURCE: VAGINAL [...] performed at Main Lab DEPARTMENT OF PATHOLOGY, [address] [place] [address] Sourav Coronel M.D. Director [facility] # [id number] Patient: MON[place]NA GRIGSBY [id number] (Continued) Specimen: [id number] Collected: 05/19/15 Received: 05/19/15 (Continued) Procedure Result Verified Site Trichomonas: Vaginal DNA Probe Final (continued) 05/20/151052 The presence or absence of T. vaginalis cannot be used as a test for therapeutic success or failure. * ML - MAIN LAB ([facility]) . END OF REPORT * ML=Testing performed at Main Lab DEPARTMENT OF PATHOLOGY, [address] [place] [address] Sourav Coronel M.D. Director [facility] # [id number] 47 Desirable <150 Borderline high 150-199 High [...] levels within this range. Test Performed by: [facility] - [address] [address] Past Due Accounts Clerk: Se Mcfarland III, M.D. 65 Because ethnic [...] has been shown to interfere with the [place]endrass[place] method for measuring total bilirubin. Samples from [...] 0.06 ng/mL NOT SUPPORTIVE OF DIAGNOSIS OF [place] 0.06 - 0.50 ng/ml INDETERMINATE: SUGGEST SERIAL STUDIES IF CLINICALLY INDICATED. Greater than 0.5 ng/mL CONSISTENT WITH DIAGNOSIS OF [place] . 83 Recommended INR for Patients on [...] change was based on recommendations from the [place] [employer]. 87 A metabolite of Naproxen, O-desmethylnaproxen, has been shown to interfere with the [place]endrassik-[place] method for measuring total bilirubin. Samples from [...] 0.06 ng/mL NOT SUPPORTIVE OF DIAGNOSIS OF [place] 0.06 - 0.50 ng/ml INDETERMINATE: SUGGEST SERIAL STUDIES IF CLINICALLY INDICATED. Greater than 0.5 ng/mL CONSISTENT WITH DIAGNOSIS OF [place] . 90 Anion gap measurement may be of limited value in the presence of any alkalosis, especially in a combined acid base disorder. . 91 Note change in reference range as of 04/01/08. The change was based on recommendations from the [place] [employer]. 92 A metabolite of Naproxen, O-desmethylnaproxen, has been shown to interfere with the [place]rassik-[place] method for measuring total bilirubin. Samples from [...] change was based on recommendations from the [place] [employer]. 96 Please note change in reference range effective 08 . 97 A metabolite of Naproxen, O-desmethylnaproxen, has been shown to interfere with the [place]rassik-[place] method for measuring total bilirubin. Samples from [...] IN SELECTIVE PATIENTS <6.0%. PLEASE REFER TO [place] [employer]ATION DIABETIC CARE GUIDELINES FOR FURTHER [...] change was based on recommendations from the [place] [employer]. 10 THERAPEUTIC TARGET FOR THE TREATMENT OF DIABETES 9 MELLITUS PATIENTS IS <7% HBA1C, AND IN SELECTIVE PATIENTS <6.0%. PLEASE REFER TO [place] [employer] DIABETIC CARE GUIDELINES FOR FURTHER INFORMATION. 11 New Reference Range and Interpretation effective 05/15/02 0 TnI (ng/ml) INTERPRETATION <0.06 ng/ml NOT SUPPORTIVE OF DIAGNOSIS OF [place] 0.06 - 0.50 ng/ml INDETERMINATE: SUGGEST SERIAL STUDIES IF CLINICALLY INDICATED. > 0.5 ng/ml CONSISTENT WITH DIAGNOSIS OF [place] . 11 Anion gap measurement may be of limited value in the 1 presence of any alkalosis, especially in a combined acid base disorder. . 11 Note change in reference range as of 04/01/08. The 2 change was based on recommendations from the [place] Diabetes [employer]. 11 Please note change in [...] 9 12 ---- 0 RUN DATE: 07/17/07 [facility] NMI LIVE PAGE 1 RUN TIME: 1653 Specimen Inquiry RUN USER: INTERFACE [id number] OMNTANA GRIGSBY 61/F <REG REF 07/16> ([id number]) Mehul Zhao MD -- Specimen: [id number] SOUT Spec Date: 07/16/[address]: Sudheer vargas MD Spec Type: SURGICAL P Received: 07/16/07-2642 Copies to: Trip Washington III, MD SPECIMEN [...] 07/17/07 1652 -- -- DEPARTMENT OF PATHOLOGY, [address] [place] [address] [facility] Permit #[id number] Sourav Coronel M.D. Director of Laboratories -- Procedures Date CPT Code Description Status 04/30/2018 15638 EKG Tracing & Interpretation Completed 03/24/2018 87570 Inject/Drain Joint/Bursa Major W/O US Completed 03/21/2018 98748 Hysteroscopy, Surgical W/Biopsy Endometrium/Polpectomy Completed W/W/O D&C 10/07/2017 71986 Admin & Interp Of Health Risk Assessment w/ Patient Completed 07/19/2017 Mammogram Completed 04/11/2017 76495 Inject Tendon Sheath Or Ligament Aponeurosis Eg Plantar Completed Fascia 01/08/2017 Mammogram Completed 11/14/2016 30109 Destruction Of Benign Lesions Any Method 1-14 lesions Completed 07/24/2016 59046 EKG Tracing & Interpretation Completed 07/09/2016 Mammogram Completed 11/14/2015 78693 Inject/Drain Joint/Bursa Major W/O US Completed 08/16/2015 82643 Nerve Conduction 05-06 Studies Completed 08/16/2015 63060 Needle Electromyography Each Extremity W/Related Completed Paraspinal Areas 07/05/2015 Mammogram Completed 07/05/2015 Bone Mineral Density Test Completed 03/24/2015 Colonoscopy Completed 11/09/2014 08893 Nerve Conduction 03-04 Studies Completed 11/09/2014 01053 Needle Electromyography Each Extremity W/Related Completed Paraspinal Areas 04/21/2014 49800 Inject Tendon Sheath Or Ligament Aponeurosis Eg Plantar Completed Fascia 01/13/2014 37696 EKG Tracing & Interpretation Completed 12/09/2013 09670 Inject Tendon Sheath Or Ligament Aponeurosis Eg Plantar Completed Fascia 06/12/2013 40355 Xray Knee 3 Views Completed 07/29/2012 37228 Holter Monitor Review (24 hr)dr review & interp only Completed 09/04/2011 88698 EKG Tracing & Interpretation Completed 10/19/2009 05357 Noninvasive Ear Or Pulse Oximetry For Oxygen Saturation Completed 09/26/2009 88534 Spirometry Incl Graphic Record, Timed Expiratory Flow Completed Rate 09/15/2007 62781 Stress Test Supervsn W/Out I/R Completed 09/15/2007 84209 Stress Test Supervsn W/Out I/R Completed 09/15/2007 73244 Treadmill Interp/Report Only Completed 09/10/2007 35194 EKG Tracing & Interpretation Completed 09/10/2007 82204 EKG Tracing & Interpretation Completed 07/16/2007 Colonoscopy Completed 02/18/2006 99722 Color Doppler Completed 02/18/2006 52178 Pulse Doppler & Continuous Wave Completed 02/18/2006 58735 Pulse Doppler & Continuous Wave Completed 02/18/2006 61690 Echocardiogram Completed 06/04/2005 Colonoscopy Completed Encounters Type Date Location Provider CPT E/M Dx Office Visit 04/18/2018 [facility] Jacinda Winter M.D. 72314 M25.461 2:45p Of Fab M25.561 M17.11 S83.241A Office Visit 04/07/2018 8:15a [facility] Samantha Epstein 20422 M25.461 Of Fab DESAI M25.561 M17.11 Office Visit 03/28/2018 11:00a [facility] [place] [address] Z12.31 Boiler Coverer N64.59 N83.202 Office Visit 03/24/2018 9:30a [facility] Of Jacinda Winter M.D. 45812 M25.561 C.MJun M25.461 M17.11 Office Visit 02/25/2018 1:30p [facility] [place] [address] N84.0 Boiler Coverer N83.202 Office Visit 02/11/2018 2:00p [facility] Internal Medicine Nurse Visit C 61768 H61.21 - Van Office Visit 01/13/2018 8:30a [facility] Internal Medicine Jessica David 16780 R73.01 - Van Gaspar E89.0 Office Visit 12/24/2017 2:00p [facility] Internal Medicine Jessica David 01981 J01.91 - Van Gaspar R22.41 Office Visit 12/09/2017 8:30a [facility] Internal Medicine - Jessica David 38573 J01.90 Van Gapsar Office Visit 11/14/2017 8:00a [facility] [place] [address] L82.1 L57.0 D22.5 L23.9 Office Visit 10/07/2017 10:30a [facility] Internal Medicine Jessica David M.D. 49504 R05 - Van Office Visit 09/27/2017 11:40a [facility] Internal Medicine Trip Washington, 05507 J20.9 - Van Gaspar Office Visit 07/25/2017 8:50a [facility] Internal Medicine Jessica David M.D. 14607 K21.9 - Van E03.9 R10.2 M51.36 Z23 Z01.411 Office Visit 05/27/2017 10:30a [facility] Internal Medicine Jessica David M.D. 37038 L29.8 - Van E03.9 Office Visit 04/11/2017 9:00a [facility] Jinny Person, 06537 M65.321 Of Fab Gaspar Office Visit 04/10/2017 8:30a [facility] Internal Medicine Jessica David 00361 M79.604 - Van Gaspar E03.9 R73.01 M79.644 Office Visit 11/14/2016 8:00a [facility] [place] [place] [address] L57.0 L30.9 L82.1 L82.0 R58 L53.8 Z78.9 Office Visit 07/24/2016 8:30a [facility] Internal Medicine Jessica David 01687 Z00.00 - Van Gaspar M81.0 I10 R73.01 E03.9 Office Visit 04/04/2016 8:50a [facility] Internal Medicine Jessica David M.D. 11228 R35.0 - Van N39.46 Office Visit 03/05/2016 1:40p [facility] Internal [place] Cés[place] [address] J01.10 - [place] Office Visit 01/24/2016 8:30a [facility] Internal Medicine Jessica David 12854 R73.01 - Pretty Gaspar M51.17 Office Visit 01/03/2016 10:30a [facility] [place] [address] G60.9 Of [facility] M54.17 Office Visit 12/20/2015 2:20p [facility] Internal Medicine Jessica David 25251 R59.0 - Pretty Gaspar Office Visit 11/25/2015 2:30p [facility] Of Jacinda Winter M.D. 36982 M25.552 C.M.ASeb M70.62 M16.12 Office Visit 11/14/2015 2:30p [facility] Of Jacinda Winter M.D. 12055 M25.552 C.M.ASeb M70.62 M16.12 Office Visit 10/24/2015 10:10a [facility] Internal Medicine Jessica David 89177 R73.01 - Pretty Gaspar M81.8 K21.9 Office Visit 09/12/2015 2:30p [facility] [place] [address] G60.9 Of [facility] M54.17 Office Visit 09/08/2015 11:40a [facility] Internal [place] Cés[place] [address] J01.10 - [place] Office Visit 07/13/2015 10:50a [facility] Internal Medicine Jessica David 12175 M81.8 - Pretty Gaspar J01.90 E03.9 Office Visit 07/06/2015 3:00p [facility] [place] [address] M54.17 Services Of [facility] Office Visit 06/17/2015 11:20a [facility] Of Michael Benito 95661 G57.81 C.M.A. Chasity Office Visit 06/01/2015 2:20p [facility] Of Michael Benito, 93070 G57.81 Fab Gaspar M25.371 Office Visit 05/19/2015 10:30a [facility] Internal Medicine Jessica David M.D. 23555 J30.1 - [place] E78.0 M25.571 N89.8 Z23 Office Visit 12/08/2014 8:00a [facility] Of Mirza Culver M.D. 94084 355.8 C.M.ASeb Office Visit 11/04/2014 9:50a [facility] Internal Medicine Jessica David M.D. 70329 782.0 - [place] Office Visit 09/21/2014 12:10p [facility] Internal Medicine Jessica David M.D. 96942 244.9 - [place] 564.00 782.0 380.4 Office Visit 05/13/2014 10:10a [facility] Internal Lon David M.D. 45669 272.0 - [place] 611.79 784.91 112.9 Office Visit 04/21/2014 9:30a [facility] Of Mirza Culver, 77956 726.61 Fab Gaspar Office Visit 02/03/2014 9:50a [facility] Internal Medicine Jessica David 11495 922.1 - Pretty Gaspar 847.2 275.2 276.8 Office Visit 01/20/2014 12:10p [facility] Internal Lon David M.D. 48427 847.2 - [place] 276.8 275.41 Office Visit 01/13/2014 2:30p [facility] Internal Medicine Jessica David 34832 794.31 - Pretty Gaspar 276.8 847.2 Office Visit 12/09/2013 11:15a [facility] Of Mirza Culver 36088 726.61 Fab Gaspar 726.61 Office Visit 11/12/2013 9:50a [facility] Internal Lon David M.D. 36746 272.0 - [place] 786.2 V16.49 Office Visit 10/28/2013 2:00p [facility] Mirza Culver M.D. [address]5310 727.00 Of [place] Office Visit 10/16/2013 1:15p [facility] Alberto Marcano 75179 836.0 Of Ladan Ferrell Office Visit 09/11/2013 9:30a [facility] Alberto Marcano 06775 727.00 Of Ladan Ferrell Office Visit 06/12/2013 2:00p [facility] Mirza Culver M.D. 63307 726.61 [facility] [place] 717.7 719.46 Office Visit 06/10/2013 10:10a [facility] Jessica David M.D. 93190 848.8 - [place] Office Visit 05/14/2013 9:50a [facility] Jessica David M.D. 25782 272.0 - [place] 786.2 726.69 Office Visit 04/30/2013 11:10a [facility] Jessica David M.D. 67924 V70.0 - [place] 272.0 786.2 V70.0 V41.2 733.90 V04.81 Office Visit 03/05/2013 9:50a [facility] Jessica David 54740 726.69 - [place] 847.0 Office Visit 08/14/2012 3:00p [facility] [place] 29196 785.1 - [place] 244.1 786.09 Office Visit 07/09/2012 1:00p [facility] [place] 19397 785.1 - [place] 401.9 244.1 272.0 Office Visit 05/29/2012 9:20a [facility] [place] 69569 709.9 - [place] Office Visit 01/09/2012 2:40p [facility] [place] 66485 V72.81 - [place] 366.9 401.9 724.2 244.1 Office Visit 09/04/2011 9:40a [facility], 09499 785.1 - [place] Joyce.Alireza v72.60 Office Visit 04/30/2011 10:40a DO Not Use [facility] AT [facility], 03317 788.41 [facility] M.D. 564.00 244.1 724.2 V04.81 Office Visit 01/29/2011 1:40p DO Not Use [facility] AT [facility], 93321 782.7 [place] M.D. Office Visit 10/04/2010 10:00a DO Not Use [facility] AT [facility], 88211 386.19 [facility] M.D. Office Visit 07/25/2010 11:00a DO Not Use [facility] AT [facility], 20109 780.4 [facility] M.D. 465.9 Office Visit 06/29/2010 1:40p DO Not Use [facility] AT [facility], 97161 783.21 [facility] M.D. V03.82 V04.89 Office Visit 02/20/2010 1:20p DO Not Use [facility] AT [facility], 94908 466.0 [place] M.D. Office Visit 01/24/2010 1:40p DO Not Use [facility] AT [facility], 70155 729.92 [facility] M.D. Office Visit 10/19/2009 11:20a DO Not Use [facility] AT [facility], 10049 472.0 [facility] M.D. 786.2 Office Visit 09/30/2009 9:40a DO Not Use [facility] AT [facility], 16702 786.2 [place] M.D. Office Visit 09/26/2009 1:20p DO Not Use [facility] AT [facility], 41546 786.2 [facility] M.D. Office Visit 08/18/2009 4:00p DO Not Use [facility] AT [facility], 88496 466.0 [place] M.D. Office Visit 07/20/2009 2:15p DO Not Use [facility] AT [facility], 29199 401.1 [facility] M.D. 272.0 790.21 530.81 709.9 Office Visit 02/08/2009 2:30p [facility], 53701 272.0 [facility] M.D. 244.9 724.2 Office Visit 10/14/2008 2:00p [facility], 82022 724.2 [facility] M.D. Office Visit 08/02/2008 3:00p [facility], 49376 401.1 [facility].D. 244.9 530.81 V72.81 Office Visit 05/17/2008 2:00p [facility], 88290 461.9 [facility] M.D. 401.1 719.45 V04.81 Office Visit 04/05/2008 3:30p [facility], 15528 724.2 [facility] M.D. 401.1 Office Visit 09/23/2007 2:00p [facility], 11646 786.50 [facility] M.D. 401.1 Office Visit 09/10/2007 3:30p [facility], 96076 786.50 [facility] M.D. 401.1 Office Visit 05/13/2007 11:00a [facility], 57066 473.9 [facility] M.D. 719.41 786.2 Office Visit 02/24/2007 3:00p [facility], 68480 472.0 [facility] M.D. V06.1 Plan of Care Future Appointment(s):05/20/2018 7:30 am - Jacinda Winter M.D. at [facility]05/02/2018 3:00 pm - Jacinda Winter M.D. at [facility]07/15/2018 9:10 am - Jessica David M.D. at [facility] - Mtqeuiqvz04/08/2019 9:00 am - Beto Moran MD at [facility] Fyxxcsxfbik19/ 19/2018 - Jessica David M.D.Z01.818 Encounter for other preprocedural examinationComments:unergoing elective knee surgery , has no acute coronary syndrome, low risk for major adverse events , advised to proceed with her upcoming surgery hold all NSAID's ( ibuprofen , aspirin ) at least 7 days prior to surgery CC to Dr. Harden up[id number] Oth tear of medial meniscus, current injury, r knee, initComments:Plan per Dr. Winter for arthroscopic szffxpyH71.11 Unilateral primary osteoarthritis, right kneeE89.0 Postprocedural hypothyroidismComments:stable with surrent [id number] Essential (primary) hypertensionComments:fofvknE90.01 Impaired fasting glucoseComments:stable with diet and life style sjqamaitivdbX18.4 Other hyperlipidemiaComments:stable with fenofibrate
--- NOTE | 2018-05-26 20:12 | RAD ---
EXAM: CT Head Without Intravenous Contrast CLINICAL HISTORY: 72 years old, female; Signs and symptoms; Dizziness; Additional info: Dizzyness TECHNIQUE: Axial computed tomography images of the head/brain without intravenous contrast. All CT scans at this facility use at least one of these dose optimization techniques: automated exposure control; mA and/or kV adjustment per patient size (includes targeted exams where dose is matched to clinical indication); or iterative reconstruction. COMPARISON: No relevant prior studies available. FINDINGS: Brain: There is low attenuation change in the white matter most consistent with chronic age related small vessel ischemic change. No acute territorial infarction is seen. These can be initially occult on head CT. No hemorrhage. Ventricles: No intracranial bleed, suspicious mass, or mass effect. Ventricles appear unremarkable. Bones/joints: Unremarkable. No acute fracture. Soft tissues: Unremarkable. Sinuses: Unremarkable as visualized. No acute sinusitis. Mastoid air cells: Unremarkable as visualized. No mastoid effusion. IMPRESSION: 1. No intracranial bleed, suspicious mass, or mass effect. Ventricles appear unremarkable. 2. There is low attenuation change in the white matter most consistent with chronic age related small vessel ischemic change. No acute territorial infarction is seen. These can be initially occult on head CT. To contact [facility] with a general question: [facility] [place] [facility] - [phone] For direct physician to physician contact: Physician Hotline - [phone] [facility] ([facility] Facility ID #[id number])
[2018-05-26 21:02] LABS: ABS Basophils 0.1 10^3/ul (0-0.2); ABS Eosinophils 0.4 10^3/ul (0-0.6); ABS Lymphocytes 3.4 10^3/ul (1.0-4.8); ABS Neutrophils 5.2 10^3/ul (1.5-7.7); ABS Nucleated RBC 0 10^3/ul; Eosinophil % 3.9 % (0-6); Hematocrit 44 % (35-47); Hemoglobin 14.4 g/dl (12.0-16.0); Lymphocyte % 33.7 % (25-47); Mean Corpuscular HGB Conc 33 g/dl (31-36); Mean Corpuscular Hemoglobin 28 pg (27-31); Mean Corpuscular Volume 87 fL (80-97); Mean Platelet Volume 7.9 um3 (7.4-10.4); Nucleated Red Blood Cells % 0.1; Platelet Count 344 10^3/ul (150-450); Red Blood Count 5.08 10^6/ul (4.00-5.40); Red Cell Distribution Width 14 % (10.5-15); White Blood Count 10.1 10^3/ul (3.5-10.8)
[2018-05-26 21:21] LABS: Urine Appearance Clear; Urine Blood Negative (Negative); Urine Color Yellow; Urine Ketones Negative (Negative); Urine Protein Negative (Negative); Urine Red Blood Cell Trace(0-2/hpf) (Absent); Urine Specific Gravity 1.006 (1.010-1.030); Urine Urobilinogen Negative (Negative); Urine White Blood Cell Trace(0-5/hpf) (Absent)
[2018-05-26] MEDS ORDERED: Iohexol 350* (CONTRAST) 500 ML MDV IV ONE (21:27)
--- NOTE | 2018-05-26 21:36 | ED ---
Syncope/Near Syncope - HPI Summary HPI Summary: Patient complains of 3 episodes of lightheadedness while standing with associated SOB and chest fluttering. Patient states episodes last less than 1 minute. Patient has history of same symptoms occurring over the past couple years. states he observed nothing, denied any focal deficits, slurred speech, facial droop, imbalance. Patient herself denies focal deficits, GARAY, fever, cough, sore throat, CP, N/V/D, abdominal pain, change in urine, change in BM, new medications. Medical history is HTN, hypothyroid, HDL. - History Of Current Complaint Chief Complaint: EDDizziness Time Seen by Provider: 05/26/18 19:38 Hx Obtained From: Patient, Family/Mortuary Operations Manager Onset/Duration: Sudden Onset Timing: Intermittent Episode Lasting Context: Witnessed Activity At Onset: Other Associated Head Trauma: No Aggravating Factor(s): Nothing Alleviating Factor(s): Nothing Associated Signs And Symptoms: Lightheadedness - Allergies/Home Medications Allergies/Adverse Reactions: Allergies Allergy/AdvReac Type Severity Reaction Status Date / Time povidone-iodine Allergy Severe Blisters Verified 05/20/18 06:27 [From Betadine] soap [From Betadine] Allergy Severe Blisters Verified 05/20/18 06:27 adhesive tape Allergy itchy Verified 05/20/18 06:27 latex Allergy Unknown Verified 05/20/18 06:27 Reaction Details propoxyphene [From Darvon] AdvReac Dizziness Verified 05/20/18 06:27 BANDAIDS Allergy Rash Uncoded 05/20/18 06:27 PMH/Surg Hx/FS Hx/Imm Hx Endocrine/Hematology History: Reports: Hx Thyroid Disease - ON MEDICATION DFOR Denies: Hx Diabetes Cardiovascular History: Reports: Hx Hypertension - ON MEDICATION FOR, Hx Rheumatic Fever - A CHILD, Other Cardiovascular Problems/Disorders - POSSIBLE A-FIB, NOT CONCLUSIVE Denies: Hx Pacemaker/ICD Respiratory History: Denies: Hx Asthma, Hx Chronic Obstructive Pulmonary Disease (COPD) GI History: Reports: Hx Gastroesophageal Reflux Disease, Hx Hiatal Hernia, Other GI Disorders - OCCASIONAL HEARTBURN RELIEVED WITH TUMS Denies: Hx Ulcer History: Denies: Hx Dialysis, Hx Renal Disease Musculoskeletal History: Reports: Hx Arthritis - RIGHT KNEE, LOWER BACK, Other Musculoskeletal History - HX OF BACK SURGERY Sensory History: Reports: Hx Cataracts, Hx Contacts or Glasses - GLASSES Denies: Hx Hearing Aid Opthamlomology History: Reports: Hx Cataracts, Hx Contacts or Glasses - GLASSES Psychiatric History: Denies: Hx Panic Disorder - Cancer History Hx Chemotherapy: No Hx Radiation Therapy: No - Surgical History Surgery Procedure, Year, and Place: 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 cyst removal ovary. hernia repair. carpal tunnel-RIGHT. 2010 decompression of 5th lumbar nerve. removal of pelvic abcess. cataract surgeries. cataracts with implants. TRIGGER THUMBS. D&C Hx Anesthesia Reactions: Yes - A LITTLE SLOW TO WAKE//VOMITING WITH MOTION Infectious Disease History: No Infectious Disease History: Denies: Hx Hepatitis, Hx Human Immunodeficiency Virus (HIV), Traveled Outside the [place] in Last 30 Days - Family History Known Family History: Positive: Hypertension - Social History Alcohol Use: Occasionally Alcohol Amount: 2-3 GLASSES WINE Substance Use Type: Reports: None Smoking Status (MU): Never Smoked Tobacco Have You Smoked in the Last Year: No Review of Systems Constitutional: Negative Eyes: Negative ENT: Negative Cardiovascular: Negative Positive: Shortness Of Breath Gastrointestinal: Negative Genitourinary: Negative Musculoskeletal: Negative Skin: Negative Neurological: Negative Psychological: Normal All Other Systems Reviewed And Are Negative: Yes Physical Exam - Summary Physical Exam Summary: Patient alert and oriented. No work of breathing noted. Triage Information Reviewed: Yes Vital Signs On Initial Exam: Initial Vitals Temp Pulse Resp BP Pulse Ox 98.4 F 74 20 144/89 99 05/26/18 19:13 05/26/18 19:13 05/26/18 19:13 05/26/18 19:13 05/26/18 19:13 Vital Signs Reviewed: Yes Appearance: Positive: Well-Appearing Skin: Positive: Warm Head/Face: Positive: Normal Head/Face Inspection Eyes: Positive: Normal Neck: Positive: Supple Respiratory/Lung Sounds: Positive: Clear to Auscultation Cardiovascular: Positive: Normal Abdomen Description: Positive: Nontender Musculoskeletal: Positive: Normal Neurological: Positive: Normal Psychiatric: Positive: Normal AVPU Assessment: Alert - Herve Coma Scale Best Eye Response: 4 - Spontaneous Best Motor Response: 6 - Obeys Commands Best Verbal Response: 5 - Oriented Coma Scale Total: 15 Diagnostics - Vital Signs Vital Signs Temp Pulse Resp BP Pulse Ox 05/26/18 19:13 98.4 F 74 20 144/89 99 - Laboratory Lab Results: Lab Results 05/26/18 05/26/18 05/26/18 Range/Units 19:52 20:43 20:56 WBC 10.1 (3.5-10.8) 10^3/ul RBC 5.08 (4.00-5.40) 10^6/ul Hgb 14.4 (12.0-16.0) g/dl Hct 44 (35-47) % MCV 87 (80-97) fL MCH 28 (27-31) pg MCHC 33 (31-36) g/dl RDW 14 (10.5-15) % Plt Count 344 (150-450) 10^3/ul MPV 7.9 (7.4-10.4) um3 Neut % (Auto) 51.3 (38-83) % Lymph % (Auto) 33.7 (25-47) % [place] % (Auto) 10.2 H (0-7) % Eos % (Auto) 3.9 (0-6) % Baso % (Auto) 0.9 (0-2) % Absolute Neuts (auto) 5.2 (1.5-7.7) 10^3/ul Absolute Lymphs (auto) 3.4 (1.0-4.8) 10^3/ul Absolute Monos (auto) 1.0 H (0-0.8) 10^3/ul Absolute Eos (auto) 0.4 (0-0.6) 10^3/ul Absolute Basos (auto) 0.1 (0-0.2) 10^3/ul Absolute Nucleated RBC 0 10^3/ul Nucleated RBC % 0.1 Sodium (135-145) mmol/L Potassium (3.5-5.0) mmol/L Chloride (101-111) mmol/L Carbon Dioxide (22-32) mmol/L Anion Gap (2-11) mmol/L BUN (6-24) mg/dL Creatinine (0.51-0.95) mg/dL Est GFR ( Amer) (>60) Est GFR (Non-Af Amer) (>60) BUN/Creatinine Ratio (8-20) Glucose (70-100) mg/dL Lactic Acid (0.5-2.0) mmol/L Calcium (8.6-10.3) mg/dL Total Bilirubin (0.2-1.0) mg/dL AST (13-39) U/L ALT (7-52) U/L Alkaline Phosphatase (34-104) U/L Troponin I (<0.04) ng/mL C-Reactive Protein (<8.01) mg/L B-Natriuretic Peptide ( - 100) pg/mL Total Protein (6.4-8.9) g/dL Albumin (3.2-5.2) g/dL Globulin (2-4) g/dL Albumin/Globulin Ratio (1-3) Urine Color Yellow Urine Appearance Clear Urine pH 6.0 (5-9) Ur Specific [place] 1.006 L (1.010-1.030) Urine Protein Negative (Negative) Urine Ketones Negative (Negative) Urine Blood Negative (Negative) Urine Nitrate Negative (Negative) Urine Bilirubin Negative (Negative) Urine Urobilinogen Negative (Negative) Ur Leukocyte Esterase Trace A (Negative) Urine WBC (Auto) Trace(0-5/hpf) (Absent) Urine RBC (Auto) Trace(0-2/hpf) (Absent) Urine Bacteria Absent (Absent) Urine Glucose Negative (Negative) Influenza A (Rapid) Negative (Negative) Influenza B (Rapid) Negative (Negative) 05/26/18 05/26/18 05/26/18 Range/Units 20:56 20:56 20:56 WBC (3.5-10.8) 10^3/ul RBC (4.00-5.40) 10^6/ul Hgb (12.0-16.0) g/dl Hct (35-47) % MCV (80-97) fL MCH (27-31) pg MCHC (31-36) g/dl RDW (10.5-15) % Plt Count (150-450) 10^3/ul MPV (7.4-10.4) um3 Neut % (Auto) (38-83) % Lymph % (Auto) (25-47) % [place] % (Auto) (0-7) % Eos % (Auto) (0-6) % Baso % (Auto) (0-2) % Absolute Neuts (auto) (1.5-7.7) 10^3/ul Absolute Lymphs (auto) (1.0-4.8) 10^3/ul Absolute Monos (auto) (0-0.8) 10^3/ul Absolute Eos (auto) (0-0.6) 10^3/ul Absolute Basos (auto) (0-0.2) 10^3/ul Absolute Nucleated RBC 10^3/ul Nucleated RBC % Sodium 139 (135-145) mmol/L Potassium 3.7 (3.5-5.0) mmol/L Chloride 104 (101-111) mmol/L Carbon Dioxide 28 (22-32) mmol/L Anion Gap 7 (2-11) mmol/L BUN 23 (6-24) mg/dL Creatinine 0.88 (0.51-0.95) mg/dL Est GFR ( Amer) 76.2 (>60) Est GFR (Non-Af Amer) 63.0 (>60) BUN/Creatinine Ratio 26.1 H (8-20) Glucose 135 H (70-100) mg/dL Lactic Acid 1.1 (0.5-2.0) mmol/L Calcium 10.2 (8.6-10.3) mg/dL Total Bilirubin 0.40 (0.2-1.0) mg/dL AST 17 (13-39) U/L ALT 13 (7-52) U/L Alkaline Phosphatase 59 (34-104) U/L Troponin I 0.01 (<0.04) ng/mL C-Reactive Protein 2.85 (<8.01) mg/L B-Natriuretic Peptide 27 ( - 100) pg/mL Total Protein 7.1 (6.4-8.9) g/dL Albumin 4.3 (3.2-5.2) g/dL Globulin 2.8 (2-4) g/dL Albumin/Globulin Ratio 1.5 (1-3) Urine Color Urine Appearance Urine pH (5-9) Ur Specific [place] (1.010-1.030) Urine Protein (Negative) Urine Ketones (Negative) Urine Blood (Negative) Urine Nitrate (Negative) Urine Bilirubin (Negative) Urine Urobilinogen (Negative) Ur Leukocyte Esterase (Negative) Urine WBC (Auto) (Absent) Urine RBC (Auto) (Absent) Urine Bacteria (Absent) Urine Glucose (Negative) Influenza A (Rapid) (Negative) Influenza B (Rapid) (Negative) Result Diagrams: 05/26/18 20:56 05/26/18 20:56 Lab Statement: Any lab studies that have been ordered have been reviewed, and results considered in the medical decision making process. - Radiology cxr Xray Interpretation: No Acute Changes Radiology Interpretation Completed By: ED Physician - CT cta chest CT Interpretation: No Acute Changes CT Interpretation Completed By: Radiologist brain CT Interpretation: No Acute Changes CT Interpretation Completed By: Radiologist - EKG 1 Cardiac Rate: NL EKG Rhythm: Sinus Rhythm ST Segment: Non-Specific Ectopy: None Course/Dx Course Of Treatment: Patient history of knee surgery 1 week ago complains of 3 episodes of lightheadedness while standing with associated SOB and chest fluttering. Patient states episodes last less than 1 minute. Patient has history of same symptoms occurring over the past couple years. states he observed nothing, denied any focal deficits, slurred speech, facial droop, imbalance. Patient herself denies focal deficits, GARAY, fever, cough, sore throat , CP, N/V/D, abdominal pain, change in urine, change in BM, new medications. Medical history is HTN, hypothyroid, HDL. Physical exam:Patient alert and oriented. No work of breathing noted. Vital signs within normal limits. EKG negative. Chest x-ray negative. Labs unremarkable. CTA chest negative. Discussed patient with Dr. Rosen who recommended discharge home. - Diagnoses Provider Diagnoses: Lightheadedness Discharge - Sign-Out/Discharge Documenting (check all that apply): Patient Departure - Discharge Plan Condition: Stable Disposition: HOME Patient Education Materials: Lightheadedness (ED) Referrals: Yudith Ruiz MD [Primary Care Provider] - Additional Instructions: Follow-up with primary care to arrange for possible stress test. Return to the ED for any new or worsening symptoms - Billing Disposition and Condition Condition: STABLE Disposition: Home
--- NOTE | 2018-05-26 22:17 | RAD ---
EXAM: CT Angiography Chest With Intravenous Contrast EXAM DATE/TIME: 05/26/2018 9:33 PM CLINICAL HISTORY: 72 years old, female; Pain; Chest pain; Additional info: Recent surgery, lightheadeness, SOB TECHNIQUE: Axial computed tomographic angiography images of the chest with intravenous contrast using CT angiography protocol. All CT scans at this facility use at least one of these dose optimization techniques: automated exposure control; mA and/or kV adjustment per patient size (includes targeted exams where dose is matched to clinical indication); or iterative reconstruction. Coronal and sagittal reformatted images were created and reviewed. MIP reconstructed images were created and reviewed. CONTRAST: 62 ml of OMNI 350 administered intravenously. COMPARISON: DX CXR CHEST PA LAT 2 VWS 08/14/2012 4:55 PM FINDINGS: Pulmonary arteries: Pulmonary arteries are well opacified to the subsegmental branches. Normal caliber main pulmonary artery. No filling defects throughout the pulmonary artery tree. Aorta: The aorta demonstrates mild atherosclerotic calcification. Lungs: As calcified granuloma posterior segment left upper lobe. No pulmonary nodules, masses, or consolidations. No bronchiectasis, peribronchial thickening, or luminal defects. Pleural space: Normal. No pneumothorax. No pleural effusion. Heart: Normal. No cardiomegaly. No pericardial effusion. Bones/joints: The thoracic spine demonstrates mild degenerative changes at multiple levels. No fractures. No suspicious bone lesions. Soft tissues: Normal. Lymph nodes: Normal. No enlarged lymph nodes. IMPRESSION: No pulmonary emboli. No additional findings to correlate with patient's symptomatology. To contact [facility] with a general question: [facility] - [phone] For direct physician to physician contact: Physician Hotline - [phone] [facility] ([facility] Facility ID #[id number])
[2018-05-26 22:48] VITALS: BP 142/92
--- NOTE | 2018-05-27 07:50 | RAD ---
INDICATION: Shortness of breath and dizziness COMPARISON: Chest x-ray August 14, 2012 TECHNIQUE: PA and lateral views of the chest were obtained. FINDINGS: The heart and mediastinum are normal in size and contour. Overlying the superior lateral left upper lung is an 8 mm pulmonary nodule unchanged from the prior chest x-ray. Otherwise the lungs are grossly clear. There is no evidence of large pleural effusion. Visualized bones are normal for the patient's age. There is no radiographic evidence of free air beneath the diaphragm IMPRESSION: No radiographic evidence of acute cardiopulmonary disease. R0
== END 2018-05-26 23:00 | disposition home or self-care (01) ==
LOC: ED 19:06
DX: R06.02 Shortness of breath (principal); R42 Dizziness and giddiness; I10 Essential (primary) hypertension; E07.9 Disorder of thyroid, unspecified
CPT/HCPCS: 36415; 70450; 71046; 71275; 80053; 81003; 81015; 83605; 83880; 84484; 85025; 86140; 87040; 87086; 93005; 99283; Q9967

== ENCOUNTER 2018-11-06 11:01 | Inpatient (IN) | payer MEDICARE ==
--- NOTE | 2018-10-29 17:16 | HP ---
HISTORY AND PHYSICAL: DATE OF ADMISSION/SURGERY: 11/06/18 DATE OF OFFICE VISIT: 10/29/18 SURGEON: Jacinda Winter MD * (DICTATED BY LLOYD TIAN) PROCEDURE: Right total knee arthroplasty. CHIEF COMPLAINT: Right knee pain. HISTORY OF PRESENT ILLNESS: Ms. Grigsby is a 73-year-old female with end- stage osteoarthritis of the right knee. She has failed conservative treatment and elected to proceed with a right total knee arthroplasty. PAST MEDICAL HISTORY: Hypertension, high cholesterol, hypothyroidism. PAST SURGICAL HISTORY: Right knee arthroscopy, laparoscopy, hernia repair, bilateral trigger thumb release, removal of a lung nodule, D and C, cataract removal, and a lumbar decompression. CURRENT MEDICATIONS: 1. Fenofibrate 145 mg a day. 2. Triamterene/hydrochlorothiazide 37.5/25 mg daily. 3. Citrucel. 4. Calcium with vitamin D. 5. Vitamin B complex. 6. MiraLAX. 7. Tylenol. 8. Klor-Con 10 mEq 2 tabs once a day. 9. Synthroid 150 mcg daily alternating with 125 mcg. 10. Nexium. ALLERGIES: DARVON, IODINE, STATINS, LATEX, and ADHESIVES. FAMILY HISTORY: Denies. SOCIAL HISTORY: She is a 73-year-old female. She lives with her . She does not smoke or use drugs. Uses occasional alcohol. REVIEW OF SYSTEMS: A complete 14-point review of systems was reviewed with the patient. It was positive for hypothyroidism. She denies history of DVT, PE, hepatitis, HIV, or anesthesia problems. PHYSICAL EXAMINATION GENERAL: She is well developed, well nourished, in no acute distress. VITAL SIGNS: She stands 64 inches tall, weighs 149 pounds. Her blood pressure is 132/67 and her heart rate is 76. HEENT: Normocephalic, atraumatic. NECK: Supple. No palpable lymph nodes. PULMONARY: The lungs are clear to auscultation bilaterally. CARDIO: Regular rate and rhythm. Strong S1, S2. ABDOMEN: Soft, nontender, nondistended. NEUROLOGICAL: She is alert and oriented x3. MUSCULOSKELETAL: Right lower extremity: The skin is intact. There are no open wounds or abrasions. Range of motion is 5 to 120 degrees of flexion with patellofemoral crepitus. She has a moderate joint effusion, some tenderness over the medial and lateral joint line. She has a 2+ dorsalis pedis pulse, intact sensation, and her lower extremity muscle group strengths are intact at 5 /5. ASSESSMENT AND PLAN: Ms. Grigsby is a 73-year-old female with end-stage osteoarthritis of the right knee. She has failed conservative treatment and elected to proceed with a right total knee arthroplasty. The surgery is scheduled for 11/06/[address] Winter discussed the risks and benefits of the surgery at today's visit and all of her questions were answered. She will follow up with Dr. Winter 2 weeks after the surgery. LLOYD TIAN [id number]/[facility] #: [id number] MTDD
[~2018-11-06 11:01] MED LIST changes: +Acetaminophen TAB* 325 MG PO ONE; -Buffered Lidocaine 0.9% SYRIN* 5 ML/SYR SYRINGE INTRADERM ONE; +Buffered Lidocaine 1% SYRIN* 1 ML/SYRINGE INTRADERM ONE; -Dexamethasone IV* 4 MG/ML 1 ML (4 MG) IV SLOW PU ONE; +Gabapentin CAP(*) 300 MG PO ONE; +Lactated Ringers 1000 ML Bag* 1,000 ML IV SCH; -Scopolamine 1.5 mg* PATCH TRANSDERM ONE; +Tranexamic Acid 1,000 MG in NS 0.9% 50 ML* (outpatient use) IV SCH; +celeCOXIB CAP* 200 MG PO ONE
[2018-11-06] MEDS ORDERED: celeCOXIB CAP* 100 MG ONE (11:27)
[2018-11-06] MEDS ORDERED: Gabapentin CAP(*) 300 MG ONE (11:27)
[2018-11-06] MEDS ORDERED: Buffered Lidocaine 1% SYRIN* 1 ML/SYRINGE INTRADERM ONE (11:28)
[2018-11-06] MEDS ORDERED: Famotidine IV* 10 MG/ML 2 ML (20 mg) ONE (11:28)
[2018-11-06] MEDS ORDERED: Acetaminophen TAB* 325 MG ONE ×3 (11:28→19:38)
[2018-11-06] MEDS ORDERED: ceFAZolin 2 GM in NS PREMIX(*) 2 GM/100 ML BAG IVPB ONE (11:28)
[2018-11-06] MEDS ORDERED: fentaNYL* 50 MCG/ML 2 ML VIAL (100 MCG VIAL) ONE ×3 (11:35→16:43)
[2018-11-06] MEDS ORDERED: Ondansetron INJ* 2 MG/ML VIAL ONE ×2 (11:35→18:43)
[2018-11-06] MEDS ORDERED: Lidocaine 2% MPF* 2 ML VIAL ONE (11:35)
[2018-11-06] MEDS ORDERED: ROPIVACAINE 5 MG/ML 30 ML BTL (0.5%) ONE ×2 (11:35→13:45)
[2018-11-06] MEDS ORDERED: Midazolam* 1 MG/ML 10 ML VIAL (10 MG) ONE (11:35)
[2018-11-06] MEDS ORDERED: KETAMINE HCL* 50 MG/ML 10 ML VIAL ONE (11:35)
[2018-11-06] MEDS ORDERED: Dexamethasone IV* 4 MG/ML 1 ML (4 MG) ONE (11:35)
[2018-11-06] MEDS ORDERED: Lidocaine 2% PF * 5 ML VIAL ONE (11:35)
[2018-11-06] MEDS ORDERED: Propofol* 10 MG/ML 20 ML BTL ONE (11:35)
[2018-11-06] MEDS ORDERED: Phenylephrine 10 MG/ML VIAL* 1 ML VIAL ONE (13:30)
[2018-11-06] MEDS ORDERED: HYDROmorphone INJ1* 1 MG/ML SYRINGE ONE (14:02)
[2018-11-06] MEDS ORDERED: Naloxone* 0.4 MG/ML 1 ML VIAL IV PRN (15:14)
[2018-11-06] MEDS ORDERED: Ondansetron INJ* 2 MG/ML VIAL IV PRN ×2 (15:14→15:58)
[2018-11-06] MEDS ORDERED: DiMENhydriNATE IV* 50 MG/ML VIAL IV PUSH PRN (15:14)
[2018-11-06] MEDS ORDERED: Cyclobenzaprine TAB* 10 MG PO PRN (15:58)
[2018-11-06] MEDS ORDERED: Polyethylene Glycol 3350* 17 GM PACKET PO PRN (15:58)
[2018-11-06] MEDS ORDERED: Magnesium Hydroxide LIQ* 30 ML UDC PO PRN (15:58)
[2018-11-06] MEDS ORDERED: oxyCODONE/Acetamin 5/325 MG* TAB PO PRN (15:58)
[2018-11-06] MEDS ORDERED: Bisacodyl SUPP* 10 MG SUPP PR PRN (15:58)
[2018-11-06] MEDS ORDERED: Morphine INJ* 2 MG/ML 1 ML SYRINGE (TWO MG - NEW SYRINGE VERSION) IV PRN (15:58)
[2018-11-06] MEDS ORDERED: Ondansetron TAB* 4 MG PO PRN (15:58)
[2018-11-06] MEDS ORDERED: diPHENhydraMINE IV* 50 MG/ML 1 ml VIAL (BENADRYL) IV PRN (15:58)
[2018-11-06] MEDS: fentaNYL* 50 MCG/ML 2 ML VIAL (100 MCG VIAL) IV PRN ×2 (16:44→17:17)
[2018-11-06] MEDS ORDERED: traMADol TAB* 50 MG ONE (17:22)
[2018-11-06] MEDS: traMADol TAB* 50 MG PO PRN (17:22)
[2018-11-06] MEDS ORDERED: hydrALAZINE IV* 20 MG/ML VIAL IV SLOW PU PRN (17:49)
[2018-11-06] MEDS ORDERED: Acetaminophen TAB* 325 MG PO SCH (20:00)
--- NOTE | 2018-11-06 20:03 | CONS ---
CONSULTATION NOTE: DATE OF CONSULT: 11/06/18 REASON FOR CONSULT: Co-management of medical issues such as hypertension and hypothyroidism. HISTORY OF PRESENT ILLNESS: The patient is a 73-year-old lady with history of end-stage osteoarthritis of the right knee, hypertension, and hypothyroidism who has failed conservative treatment and has undergone elective right total knee arthroplasty. PAST MEDICAL HISTORY: Hypertension, hypercholesterolemia, hypothyroidism. PAST SURGICAL HISTORY: Right knee arthroscopy, laparoscopy, hernia repair, bilateral trigger thumb release, removal of lung nodule, D and C, cataract removal, and lumbar decompression. MEDICATIONS: Her current medications are: 1. Tylenol. 2. Apixaban. 3. Bisacodyl. 4. Buffered lidocaine intradermal patch. 5. Celecoxib. 6. Cyclobenzaprine. 7. Dimenhydrinate. 8. Diphenhydramine. 9. Colace. 10. Esomeprazole. 11. Famotidine. 12. Fenofibrate. 13. Fentanyl IV q.5 minutes p.r.n. 14. Gabapentin. 15. Cefazolin. 16. Lactulose. 17. Levothyroxine. 18. LR. 19. Magnesium hydroxide. 20. Morphine. 21. Naloxone. 22. Ondansetron. 23. Oxycodone. 24. Polyethylene glycol. 25. Tranexamic acid. 26. Triamterene. ALLERGIES: To DARVON, IODINE, STATINS, LATEX, and ADHESIVES. FAMILY HISTORY: Denies any significant family history. SOCIAL HISTORY: She is a 73-year-old female and lives with her . She does not smoke or use drugs and uses alcohol socially. REVIEW OF SYSTEMS: The patient is currently in PACU, recently sedated, still slightly lethargic. Mentions that she is in postoperative pain of around 6/10 in the aforementioned extremity, but well controlled when she receives her dose. Other than this, the rest of the 14-point review of systems is otherwise unremarkable. PHYSICAL EXAM: Reveals the most recent vital signs of records with blood pressure of 151/68, 100% saturation on 3 L nasal cannula, 97.3 degrees Fahrenheit, 18 per minute respiratory rate, 74 beats per minute heart rate. General Appearance: The patient is lethargic, arousable, recently sedated; otherwise, not in acute distress. HEENT: Normocephalic, atraumatic. PERRLA. Extraocular muscles intact. Negative for icterus. Moist oral mucosa. Negative throat erythema. Neck is soft, supple with no cervical lymphadenopathy, no JVD. Heart: S1, S2 within normal limits. Regular rate and rhythm. No murmurs , rubs, or gallops. Chest: Clear to auscultation bilaterally. Good air entry. No wheezes, rales, or rhonchi. Abdomen is soft, nondistended, nontender. Normoactive bowel sounds x4 quadrants. Extremities: No cyanosis, clubbing,, or edema. Psychiatric: No active psychosis, depression, suicidal or homicidal ideation. Skin is warm to touch. LABORATORY DATA: Pertinent laboratories: None available, but ordered CBC, CMP , magnesium, and phosphorus as well as TSH in a.m. ASSESSMENT AND PLAN: The patient is a 73-year-old lady with history of end- stage osteoarthritis of the right knee who underwent elective right total knee arthroplasty. 1. End-stage osteoarthritis of the right knee, status post right total knee replacement. I will defer to orthopedic surgery on further input and we will await PT/OT input. 2. Hypertension, slightly uncontrolled, likely due to some pain. Given the patient's hypertension and relatively benign perioperative course, triamterene and HCTZ could be started. However, to better control hypertension, if the patient is eating well and has no need for IV, I would like to discontinue LR to further improve hypertension. We will continue watchful waiting at this point and we will place patient on p.r.n. hydralazine low dose for breakthroughs. 3. Hypothyroidism. Continue Synthroid. We will check TSH. 4. DVT prophylaxis. The patient is on Eliquis per ortho and we will defer. [id number]/[facility] #: [id number] [facility]
[2018-11-06] MEDS: Lactated Ringers 1000 ML Bag* 1,000 ML IV SCH (20:40)
[2018-11-06] MEDS: oxyCODONE TAB* 5 MG TAB PO PRN (20:48)
[2018-11-06] MEDS: Docusate CAP* 100 MG PO SCH (22:26)
[2018-11-06] MEDS: Magnesium Hydroxide LIQ* 30 ML UDC PO SCH (22:27)
[2018-11-06] MEDS: ceFAZolin 1 GM ADVAN(*) 1 GM in NS 0.9% 50 ML* 50 ML IVPB SCH (22:30)
[2018-11-06] MEDS: oxyCODONE/Acetamin 5/325 MG* TAB PO PRN (22:39)
[2018-11-07] MEDS: oxyCODONE TAB* 5 MG TAB PO PRN ×2 (02:35→08:42)
[2018-11-07] MEDS: oxyCODONE/Acetamin 5/325 MG* TAB PO PRN ×2 (06:00→10:51)
[2018-11-07] MEDS: Levothyroxine TAB* 150 MCG TAB PO SCH (06:00)
[2018-11-07] MEDS: ceFAZolin 1 GM ADVAN(*) 1 GM in NS 0.9% 50 ML* 50 ML IVPB SCH ×2 (06:03→13:19)
--- NOTE | 2018-11-07 06:17 | PN ---
Progress Note - Progress Note Date of Service: 11/07/18 SOAP: Subjective: OOB ambulating with walker, pain controlled by current pain regimen. Objective: Vital Signs Temp Pulse Resp BP Pulse Ox 97.8 F 72 16 136/66 96 11/06/18 22:41 11/06/18 22:41 11/07/18 06:00 11/06/18 22:41 11/06/18 22:41 incision: c/d/i PE: able to dorsi flex/plantar flex, intact sensation and 2+ DP pulse Assessment: s/p right TKA; POD#1 Plan: 1) Hospitalist co-managing 2) PT/OT- WBAT 3) Eliquis BID for DVT prophylaxis 4) possible home tomorrow
[2018-11-07] MEDS: Acetaminophen TAB* 325 MG PO SCH ×3 (06:29→19:37)
[2018-11-07] MEDS: Lactated Ringers 1000 ML Bag* 1,000 ML IV SCH ×2 (07:13→20:49)
[2018-11-07 08:02] LABS: Hematocrit 40 % (33-41); Hemoglobin 12.9 g/dL (12.0-16.0); Mean Corpuscular HGB Conc 33 g/dL (31-36); Mean Corpuscular Hemoglobin 28 pg (27-31); Mean Corpuscular Volume 86 fL (80-97); Mean Platelet Volume 7.7 fL (7.4-10.4); Platelet Count 280 10^3/uL (150-450); Red Blood Count 4.62 10^6 /uL (3.70-4.87); Red Cell Distribution Width 14 % (10.5-15); White Blood Count 12.7 10^3/uL (3.5-10.8)
--- NOTE | 2018-11-07 08:16 | OP ---
OPERATIVE NOTE: DATE OF OPERATION: 11/06/18 DATE OF : 43 SURGEON: Jacinda Winter MD PROTOTYPE SPECIAL BUILD: LLOYD Neff Ms. did help throughout the procedure with preparation of the leg, wound retraction, manipulation of the knee and wound closure. ANESTHESIOLOGIST: Dr. Garcia. ANESTHESIA: General. PRE-OP DIAGNOSIS: Severe end-stage degenerative osteoarthritis of the right knee joint. POST-OP DIAGNOSIS: Severe end-stage degenerative osteoarthritis of the right knee joint. OPERATIVE PROCEDURE: Right total knee arthroplasty. TOURNIQUET TIME: 45 minutes. COMPLICATIONS: None. ESTIMATED BLOOD LOSS: 200 cc. SPECIMEN: Bone and cartilage from the right knee joint, sent to Pathology. HARDWARE USED: This is [employer] cemented total knee arthroplasty hardware. Two packages of Simplex bone cement. For the femur, a size 5 narrow right posterior stabilized Legion femoral component. For the tibia, size 3 right Analilia II tibial baseplate. For the insert, a 9 mm posterior stabilized articular insert size 3-4 and for the patella a 32 mm 3-peg all-poly patella with 7.5 thickness. BRIEF HISTORY/INDICATION: Ms. Grigsby is a 73-year-old female with years of increasingly severe right knee pain. She failed conservative treatment with NSAIDS, pain medications, intraarticular injections, physical therapy and arthroscopy. Radiographs showed advanced arthritis. Due to continued pain, she elected to undergo right total knee arthroplasty. Informed consent was obtained from the patient. She understood the risks of surgery included, but were not limited to bleeding, infection, damage to nearby structures, continued pain, need for further surgery, intraoperative fracture, nerve palsy, hardware failure or loosening, knee stiffness, loss of motion, stroke, heart attack, blood clot, , and anesthesia complications. She wished to proceed. INTRAOPERATIVE FINDINGS: Intraoperatively, the patient was noted to have extensive osteophyte formation and complete loss of cartilage in the medial and patellofemoral compartments. DESCRIPTION OF PROCEDURE: Ms. Grigsby was identified in the preanesthesia unit. Her right lower extremity was marked as the correct operative side. Informed consent was signed and placed in the chart. The patient was taken to the operating room and placed under anesthesia without complication. A Causey catheter was placed. Tourniquet was placed on the right thigh. Right lower extremity was prepped and draped in the usual sterile fashion. Preop time-out was made to correctly identify the patient's side and site. Appropriate perioperative antibiotics were given within 1 hour of incision. Tourniquet was inflated and total tourniquet time for this procedure was 45 minutes. A midline incision was made with a #10 blade and carried down to the extensor mechanism. A new #10 blade was used to make a standard medial parapatellar arthrotomy. Patella was subluxed laterally. Electrocautery was used to subperiosteally elevate the soft tissue off the superomedial tibia to the midsagittal plane. The knee was flexed up. The anterior horn of the lateral meniscus and ACL were sharply released. A drill was used to enter the distal femur. Intramedullary distal femoral cutting guide was pinned on the distal femur. Oscillating saw was used to make the distal femoral cut. External rotation guide was pinned on the distal femur. Distal femur was sized to a size 5. Size 5 multi- cutting jig was pinned on the distal femur. Oscillating saw was used to make the appropriate 4 chamfer cuts. PCL was completely released. The extramedullary tibial cutting guide was pinned on the proximal tibia. The oscillating saw was used to make proximal tibial cut perpendicular to the mechanical axis of the tibia. The bone was carefully removed. The knee was brought out into full extension. The spacer block fit well with the knee in full extension. There was good medial and lateral ligamentous balancing. Flexion and extension gaps were well balanced. The knee was flexed up. Tibial tray and drop michael were placed. They confirmed a satisfactory tibial cut. A size 5 narrow right femoral trial was impacted onto the distal femur and had excellent fit and stability. The box for the posterior stabilized implant was prepared using a reamer and box-cut osteotome. Size 3 tibial tray trial with a 9 mm insert trial was placed and the knee was brought out through a range of motion. The knee had full extension to 130 degrees of flexion. There was satisfactory patellofemoral tracking. The patella was everted. 7 mm of patellar bone and cartilage was carefully removed using an oscillating saw. The patella was sized to a size 32. Three peg holes were drilled through size 32 guide. A 32 trial patella was placed and the knee was taken through range of motion. There was satisfactory patellofemoral tracking. All trials were carefully removed. The tibia was subluxed anteriorly and sized to a size 3. Proximal tibia was prepared using a size 6 keel punch. All bony cut surfaces were copiously irrigated with sterile saline and dried. Final implants were cemented into place starting with the tibia, followed by the femur and last the patella. 9 mm insert trial was placed while the knee was brought out into full extension. The tourniquet was turned down. Electrocautery was used to obtain meticulous hemostasis. The knee was copiously irrigated with sterile saline. Once the cement had fully cured, the insert trial was removed. Any excess cement was removed from around the capsule and hardware. Final insert chosen was a 9 mm posterior stabilized articular insert size 3-4. This was locked into position on the tibial tray. Stability of the insert was checked and rechecked and noted to be stable. The extensor mechanism was closed using interrupted #1 Vicryl. The rest of the incision was closed in a layered fashion using 0 and 2-0 Vicryls. Skin was closed using running 3-0 nylon suture. Sterile Xeroform, 4x4s and Webril were used to cover the incision. Jules wrap and cold pack were placed over this. The patient's anesthesia was reversed without difficulty. She was taken to the PACU in stable condition. Intended weightbearing will be weightbearing as tolerated. [id number][place] [place]: [id number] [place]ACE[place]
[2018-11-07 08:31] LABS: Albumin 3.5 g/dL (3.2-5.2); Albumin/Globulin Ratio 1.4 (1-3); BUN/Creatinine Ratio 18.6 (8-20); EGFR Non-African American 81.8 (>60); Globulin 2.5 g/dL (2-4); Magnesium 1.6 mg/dL (1.9-2.7); Potassium 3.6 mmol/L (3.5-5.0); Total Bilirubin 0.4 mg/dL (0.2-1.0)
[2018-11-07 08:56] LABS: TSH (Thyroid Stimulating Horm) 1.68 mcIU/mL (0.34-5.60)
[2018-11-07] MEDS: Potassium Chlor TAB* 20 MEQ TAB.ER PO SCH (09:31)
[2018-11-07] MEDS: CMCS: Fenofibrate(NF) 145 MG TAB PO SCH (09:31)
[2018-11-07] MEDS: Magnesium Hydroxide LIQ* 30 ML UDC PO SCH ×2 (09:31→20:54)
[2018-11-07] MEDS: Triamterene/HCTZ 37.5-25 MG* CAP PO SCH (09:31)
[2018-11-07] MEDS: Apixaban* 2.5 MG TAB PO SCH ×2 (09:31→20:54)
[2018-11-07] MEDS: Docusate CAP* 100 MG PO SCH ×2 (09:31→20:54)
[2018-11-07] MEDS: Pantoprazole TAB * 40 MG TAB PO SCH (09:31)
[2018-11-07] MEDS ORDERED: Scopolamine 1.5 mg* PATCH TRANSDERM SCH (10:00)
[2018-11-07] MEDS ORDERED: Scopolamine PATCH Remove* 1 NOTE MISC PATCH OFF SCH (10:00)
[2018-11-07] MEDS ORDERED: Magnesium Sulf 4 GM/100 ML IV* 4,000 MG/100 ML BAG IVPB ONE (13:07)
[2018-11-07] MEDS ORDERED: PROCHLORPERAZINE INJ 5 MG/ML 2 ML VIAL IV PRN (13:11)
[2018-11-07] MEDS ORDERED: PROCHLORPERAZINE INJ 5 MG/ML 2 ML VIAL ONE (13:17)
--- NOTE | 2018-11-07 14:39 | PN ---
Subjective Date of Service: 11/07/18 Interval History: Pt seen and examined. Meds and labs reviewed. Reported by RN to be hallucinating and mentions she sees bugs all over her when she closes her eyes. D/Cd Scopolamine and placed on PRN IV Prochlorperazine for nausea. CC: Nausea and visual hallucinations described above ROS: Denied GARAY/dizziness, F/C, Vomiting, CP, SOB, increased cough, sputum production, abd pain, diarrhea, constipation, dysuria, myalgias, arthralgias, throat pain, and new skin lesions. The rest of the 14 point ROS are unremarkable. PHYSICAL EXAM: GEN APPEARANCE: Awake, not in acute distress HEENT: NC/AT, PERRLA, moist oral mucosa, (-) throat erythema NECK: Soft, supple, (-) cervical LAD, (-)JVD HEART: S1S2 WNL, RRR, No MRG CHEST: CTA, BL, GAE, No W/R/R ABD: Soft, ND/NT, NABS 4x Q EXT: No C/C/R. knee, cdi SKIN: Warm to touch PSYCH: No active psychosis, (+) visual hallucinations, depression, SI/HI Objective Active Medications: Acetaminophen (Tylenol Tab*) 975 mg PO 0400,1200,2000 [facility] Last Admin: 11/07/18 10:54 Dose: Not Given Apixaban (Eliquis*) 2.5 mg PO BID [facility] Last Admin: 11/07/18 09:31 Dose: 2.5 mg Bisacodyl (Dulcolax Supp*) 10 mg [place] DAILY PRN PRN Reason: constipation Cyclobenzaprine HCl (Flexeril Tab*) 10 mg PO TID PRN PRN Reason: SPASMS Last Admin: 11/07/18 10:52 Dose: 10 mg Diphenhydramine HCl (Benadryl Iv*) 12.5 mg IV Q6H PRN PRN Reason: PRURITIS Docusate Sodium (Colace Cap*) 100 mg PO BID [facility] Last Admin: 11/07/18 09:31 Dose: 100 mg Fenofibrate (Tricor(Nf)) 145 mg PO QAM [facility]; Protocol Last Admin: 11/07/18 09:31 Dose: 145 mg Hydralazine HCl (Apresoline Iv*) 5 mg IV SLOW PU Q6H PRN PRN Reason: Hypertension Lactated Ringer's (Lactated Ringers 1000 Ml Bag*) 1,000 mls @ 100 mls/hr IV PER RATE [facility] Last Admin: 11/07/18 07:13 Dose: 100 mls/hr Magnesium Sulfate (Magnesium Sulf 4 Gm/100 Ml Iv*) 4,000 mg in 100 mls @ 33.333 mls/hr IVPB ONCE ONE Stop: 11/07/18 16:06 Last Admin: 11/07/18 14:12 Dose: 33.333 mls/hr Lactulose (Lactulose*) 30 ml PO Q6H PRN PRN Reason: constipation Levothyroxine Sodium (Synthroid Tab*) 150 mcg PO SuMoWeFrSa@0600 [facility] Last Admin: 11/07/18 06:00 Dose: 150 mcg Magnesium Hydroxide (Milk Of Magnesia Liq*) 30 ml PO BID [facility] Last Admin: 11/07/18 09:31 Dose: 30 ml Magnesium Hydroxide (Milk Of Magnesia Liq*) 30 ml PO Q6H PRN PRN Reason: constipation Morphine Sulfate (Morphine Inj (Syringe))*) 2 mg IV Q2H PRN PRN Reason: PAIN Ondansetron HCl (Zofran Inj*) 4 mg IV Q6H PRN PRN Reason: nausea Last Admin: 11/07/18 08:42 Dose: 4 mg Ondansetron HCl (Zofran Tab*) 4 mg PO Q6H PRN PRN Reason: NAUSEA Oxycodone HCl (Roxycodone Tab*) 10 mg PO Q4H PRN PRN Reason: SEVERE PAIN Last Admin: 11/07/18 08:42 Dose: 10 mg Oxycodone/Acetaminophen (Percocet 5/325 Tab*) 1 tab PO Q4H PRN PRN Reason: PAIN Oxycodone/Acetaminophen (Percocet 5/325 Tab*) 2 tab PO Q4H PRN PRN Reason: PAIN Last Admin: 11/07/18 10:51 Dose: 2 tab Pantoprazole Sodium (Protonix Tab*) 40 mg PO [facility]; Protocol Last Admin: 11/07/18 09:31 Dose: 40 mg Polyethylene Glycol/Electrolytes (Miralax*) 17 gm PO DAILY PRN PRN Reason: Constipation Potassium Chloride (Klor Con Er Tab*) 20 meq PO [facility] Last Admin: 11/07/18 09:31 Dose: 20 meq Prochlorperazine Edisylate (Compazine Inj*) 10 mg IV Q6H PRN PRN Reason: NAUSEA/VOMITING Tramadol HCl (Ultram*) 50 mg PO Q6H PRN PRN Reason: PAIN Last Admin: 11/06/18 17:22 Dose: 50 mg Triamterene/HCTZ (Dyazide Cap*) 1 cap PO QAM [facility] Last Admin: 11/07/18 09:31 Dose: 1 cap Vital Signs - 8 hr 11/07/18 11/07/18 11/07/18 07:00 07:15 08:42 Respiratory 18 18 Rate O2 Sat by Pulse 95 95 Oximetry 11/07/18 11/07/18 11/07/18 10:51 10:52 13:18 Respiratory 18 18 18 Rate O2 Sat by Pulse Oximetry Oxygen Devices in Use Now: Nasal Cannula Result Diagrams: 11/07/18 07:34 11/07/18 07:34 Assess/Plan/Problems-Billing Assessment: - Patient Problems (1) Osteoarthritis Current Visit: Yes Status: Acute Code(s): M19.90 - UNSPECIFIED OSTEOARTHRITIS, UNSPECIFIED SITE SNOMED Code(s): 067776812 Comment: #End-stage OA of right knee: -S/P R. TKR POD#1 -Defer with ortho (2) Nausea Current Visit: Yes Status: Acute Code(s): R11.0 - NAUSEA SNOMED Code(s): 622881539 Comment: -Continue PRN Zofran -D/Cd Scopolamine patch due to hallucinations -Placed on PRN Prochlorperazine (3) Visual hallucinations Current Visit: Yes Status: Acute Code(s): R44.1 - VISUAL HALLUCINATIONS SNOMED Code(s): 89513446 Comment: -Please see above discussion -Pt reports that it has since improved since Scopolamine has been d/cd -Will continue watchful waiting (4) Hypomagnesemia Current Visit: Yes Status: Acute Code(s): E83.42 - HYPOMAGNESEMIA SNOMED Code(s): 144439411 Comment: -Corrected -Continue watchful waiting (5) HTN (hypertension) Current Visit: Yes Status: Acute Code(s): I10 - ESSENTIAL (PRIMARY) HYPERTENSION SNOMED Code(s): 84225310 Comment: -Well-controlled -If pt eating and drinking well, recommend to D/C LR first then place back on home meds -Continue to observe (6) Hypothyroidism Current Visit: Yes Status: Acute Code(s): E03.9 - HYPOTHYROIDISM, UNSPECIFIED SNOMED Code(s): 34237636 Comment: -Continue Levothyroxine -TSH WNL (7) DVT prophylaxis Current Visit: Yes Status: Acute Code(s): TVW5051 - SNOMED Code(s): 264318556 Comment: -Continue Eliquis Status and Disposition: -As above -Defer with ortho
[2018-11-07] MEDS: traMADol TAB* 50 MG PO PRN (20:54)
[2018-11-08] MEDS: Acetaminophen TAB* 325 MG PO SCH ×3 (04:25→23:32)
[2018-11-08 05:31] LABS: ABS Basophils 0 10^3/ul (0-0.2); ABS Eosinophils 0.1 10^3/ul (0-0.6); ABS Lymphocytes 2.1 10^3/ul (1.0-4.8); ABS Monocytes 1.3 10^3/ul (0-0.8); ABS Neutrophils 6.3 10^3/ul (1.5-7.7); ABS Nucleated RBC 0 10^3/ul; Eosinophil % 0.6 %; Hematocrit 36 % (33-41); Hemoglobin 11.8 g/dL (12.0-16.0); Lymphocyte % 21.4 %; Mean Corpuscular HGB Conc 33 g/dL (31-36); Mean Corpuscular Hemoglobin 28 pg (27-31); Mean Corpuscular Volume 85 fL (80-97); Mean Platelet Volume 8.1 fL (7.4-10.4); Nucleated Red Blood Cells % 0; Platelet Count 252 10^3/uL (150-450); Red Blood Count 4.23 10^6 /uL (3.70-4.87); Red Cell Distribution Width 14 % (10.5-15); White Blood Count 9.7 10^3/uL (3.5-10.8)
[2018-11-08 05:52] LABS: BUN/Creatinine Ratio 17.2 (8-20); Calcium 8.3 mg/dL (8.6-10.3); EGFR African American 109.8 (>60); EGFR Non-African American 90.7 (>60); Magnesium 2.2 mg/dL (1.9-2.7); Potassium 3.4 mmol/L (3.5-5.0)
[2018-11-08] MEDS: Levothyroxine TAB* 150 MCG TAB PO SCH (05:52)
[2018-11-08] MEDS: traMADol TAB* 50 MG PO PRN ×3 (05:53→18:46)
[2018-11-08] MEDS: Pantoprazole TAB * 40 MG TAB PO SCH (09:11)
[2018-11-08] MEDS: Magnesium Hydroxide LIQ* 30 ML UDC PO SCH ×2 (09:11→23:31)
[2018-11-08] MEDS: Apixaban* 2.5 MG TAB PO SCH ×2 (09:12→23:33)
[2018-11-08] MEDS: Potassium Chlor TAB* 20 MEQ TAB.ER PO STA ×2 (09:12→09:13)
[2018-11-08] MEDS: CMCS: Fenofibrate(NF) 145 MG TAB PO SCH (09:13)
[2018-11-08] MEDS: Docusate CAP* 100 MG PO SCH ×2 (09:13→23:33)
[2018-11-08] MEDS: Triamterene/HCTZ 37.5-25 MG* CAP PO SCH (09:13)
--- NOTE | 2018-11-08 09:55 | PN ---
Progress Note - Progress Note Date of Service: 11/08/18 SOAP: Subjective: []Patient seen at bedside. She lost a day of PT yesterday due to vomiting. Denies nausea today. She is having mild to moderate knee pain. Denies SOB, CP , palpitations. Objective: [] Vital Signs Temp 98.8 F 11/08/18 07:57 Pulse 84 11/08/18 07:59 Resp 16 11/08/18 09:39 BP 110/57 11/08/18 07:59 Pulse Ox 91 11/08/18 07:59 Intake & Output 11/07/18 11/08/18 11/08/18 18:59 06:59 18:59 Intake Total 980 1760 980 Output Total 800 1100 Balance 180 660 980 Intake: IV Fluids 980 980 980 LR 980 980 980 Oral 780 Output: Urine 800 1100 Laboratory Results - last 24 hr 11/08/18 11/08/18 04:48 04:48 WBC 9.7 RBC 4.23 Hgb 11.8 L Hct 36 MCV 85 MCH 28 MCHC 33 RDW 14 Plt Count 252 MPV 8.1 Neut % (Auto) 64.2 Lymph % (Auto) 21.4 [place] % (Auto) 13.4 Eos % (Auto) 0.6 Baso % (Auto) 0.4 Absolute Neuts (auto) 6.3 Absolute Lymphs (auto) 2.1 Absolute Monos (auto) 1.3 H Absolute Eos (auto) 0.1 Absolute Basos (auto) 0 Absolute Nucleated RBC 0 Nucleated RBC % 0 Sodium 139 Potassium 3.4 L Chloride 103 Carbon Dioxide 31 Anion Gap 5 BUN 11 Creatinine 0.64 Est GFR ( Amer) 109.8 Est GFR (Non-Af Amer) 90.7 BUN/Creatinine Ratio 17.2 Glucose 131 H Calcium 8.3 L Magnesium 2.2 right knee dressings changed, wound benign, no drainage calf mild edema, no tenderness +DF right ankle sensation intact distally Assessment: []s/p RTk POD #2 Plan: []PT/OT WBAt RLE Eliquis 2.5 BID x 30 days post op Probable d/c home Saturday
[2018-11-08] MEDS: Potassium Chlor TAB* 20 MEQ TAB.ER PO SCH (11:42)
--- NOTE | 2018-11-08 12:59 | PN ---
Subjective Date of Service: 11/08/18 Interval History: Pt seen and examined. Meds and labs reviewed. CC: N/A ROS: Denied GARAY/dizziness, F/C, N/V, CP, SOB, increased cough, sputum production , abd pain, diarrhea, constipation, dysuria, myalgias, arthralgias, throat pain , and new skin lesions. The rest of the 14 point ROS are unremarkable. PHYSICAL EXAM: GEN APPEARANCE: Awake, not in acute distress HEENT: NC/AT, PERRLA, moist oral mucosa, (-) throat erythema NECK: Soft, supple, (-) cervical LAD, (-)JVD HEART: S1S2 WNL, RRR, No MRG CHEST: CTA, BL, GAE, No W/R/R ABD: Soft, ND/NT, NABS 4x Q EXT: No C/C/R. knee, cdi SKIN: Warm to touch PSYCH: No active psychosis, depression, SI/HI Objective Active Medications: Acetaminophen (Tylenol Tab*) 975 mg PO 0400,1200,2000 [facility] Last Admin: 11/08/18 12:32 Dose: 975 mg Apixaban (Eliquis*) 2.5 mg PO BID [facility] Last Admin: 11/08/18 09:12 Dose: 2.5 mg Bisacodyl (Dulcolax Supp*) 10 mg [place] DAILY PRN PRN Reason: constipation Cyclobenzaprine HCl (Flexeril Tab*) 10 mg PO TID PRN PRN Reason: SPASMS Last Admin: 11/07/18 10:52 Dose: 10 mg Diphenhydramine HCl (Benadryl Iv*) 12.5 mg IV Q6H PRN PRN Reason: PRURITIS Docusate Sodium (Colace Cap*) 100 mg PO BID [facility] Last Admin: 11/08/18 09:13 Dose: 100 mg Fenofibrate (Tricor(Nf)) 145 mg PO QAM [facility]; Protocol Last Admin: 11/08/18 09:13 Dose: 145 mg Hydralazine HCl (Apresoline Iv*) 5 mg IV SLOW PU Q6H PRN PRN Reason: Hypertension Lactated Ringer's (Lactated Ringers 1000 Ml Bag*) 1,000 mls @ 100 mls/hr IV PER RATE [facility] Last Admin: 11/07/18 20:49 Dose: 100 mls/hr Lactulose (Lactulose*) 30 ml PO Q6H PRN PRN Reason: constipation Levothyroxine Sodium (Synthroid Tab*) 150 mcg PO SuMoWeFrSa@0600 [facility] Last Admin: 11/08/18 05:52 Dose: 150 mcg Magnesium Hydroxide (Milk Of Magnesia Liq*) 30 ml PO BID [facility] Last Admin: 11/08/18 09:11 Dose: 30 ml Magnesium Hydroxide (Milk Of Magnesia Liq*) 30 ml PO Q6H PRN PRN Reason: constipation Morphine Sulfate (Morphine Inj (Syringe))*) 2 mg IV Q2H PRN PRN Reason: PAIN Ondansetron HCl (Zofran Inj*) 4 mg IV Q6H PRN PRN Reason: nausea Last Admin: 11/07/18 08:42 Dose: 4 mg Ondansetron HCl (Zofran Tab*) 4 mg PO Q6H PRN PRN Reason: NAUSEA Oxycodone HCl (Roxycodone Tab*) 10 mg PO Q4H PRN PRN Reason: SEVERE PAIN Last Admin: 11/07/18 08:42 Dose: 10 mg Oxycodone/Acetaminophen (Percocet 5/325 Tab*) 1 tab PO Q4H PRN PRN Reason: PAIN Oxycodone/Acetaminophen (Percocet 5/325 Tab*) 2 tab PO Q4H PRN PRN Reason: PAIN Last Admin: 11/07/18 10:51 Dose: 2 tab Pantoprazole Sodium (Protonix Tab*) 40 mg PO [facility]; Protocol Last Admin: 11/08/18 09:11 Dose: 40 mg Polyethylene Glycol/Electrolytes (Miralax*) 17 gm PO DAILY PRN PRN Reason: Constipation Potassium Chloride (Klor Con Er Tab*) 20 meq PO [facility] Last Admin: 11/08/18 11:42 Dose: 20 meq Prochlorperazine Edisylate (Compazine Inj*) 10 mg IV Q6H PRN PRN Reason: NAUSEA/VOMITING Tramadol HCl (Ultram*) 50 mg PO Q6H PRN PRN Reason: PAIN Last Admin: 11/08/18 12:31 Dose: 50 mg Triamterene/HCTZ (Dyazide Cap*) 1 cap PO [facility] Last Admin: 11/08/18 09:13 Dose: 1 cap Vital Signs - 8 hr 11/08/18 11/08/18 11/08/18 05:53 07:57 07:59 Temperature 98.8 F Pulse Rate 86 84 Respiratory 18 Rate Blood Pressure 82/51 110/57 (mmHg) O2 Sat by Pulse 93 91 Oximetry 11/08/18 11/08/18 11/08/18 08:45 09:39 12:31 Temperature Pulse Rate Respiratory 16 16 16 Rate Blood Pressure (mmHg) O2 Sat by Pulse 91 Oximetry Oxygen Devices in Use Now: None Result Diagrams: 11/08/18 04:48 11/08/18 04:48 Assess/Plan/Problems-Billing Assessment: - Patient Problems (1) Osteoarthritis Current Visit: Yes Status: Acute Code(s): M19.90 - UNSPECIFIED OSTEOARTHRITIS, UNSPECIFIED SITE SNOMED Code(s): 892005001 Comment: #End-stage OA of right knee: -S/P R. TKR POD#2 -Defer with ortho (2) Nausea Current Visit: Yes Status: Acute Code(s): R11.0 - NAUSEA SNOMED Code(s): 700653176 Comment: -Resolved -Continue PRN Zofran and Prochlorperazine -D/Cd Scopolamine patch due to hallucinations (3) Visual hallucinations Current Visit: Yes Status: Acute Code(s): R44.1 - VISUAL HALLUCINATIONS SNOMED Code(s): 30699669 Comment: -Resolved -Please see above discussion -Pt reports that it has since improved since Scopolamine has been d/cd -Will continue watchful waiting (4) Hypomagnesemia Current Visit: Yes Status: Acute Code(s): E83.42 - HYPOMAGNESEMIA SNOMED Code(s): 010109433 Comment: -Resolved (5) HTN (hypertension) Current Visit: Yes Status: Acute Code(s): I10 - ESSENTIAL (PRIMARY) HYPERTENSION SNOMED Code(s): 36448521 Comment: -Well-controlled -If pt eating and drinking well, recommend to D/C LR first then place back on home meds -Continue to observe (6) Hypothyroidism Current Visit: Yes Status: Acute Code(s): E03.9 - HYPOTHYROIDISM, UNSPECIFIED SNOMED Code(s): 44779139 Comment: -Continue Levothyroxine -TSH WNL (7) DVT prophylaxis Current Visit: Yes Status: Acute Code(s): QWX1483 - SNOMED Code(s): 293535619 Comment: -Continue Eliquis Status and Disposition: -Possible D/C in AM -At this point, pts acute issues has resolved and all chronic issues are stable. Will sign off at this time. Please call us for any questions or concerns. -Defer with ortho
[2018-11-09] MEDS: traMADol TAB* 50 MG PO PRN ×2 (00:57→07:12)
[2018-11-09 05:44] LABS: Hematocrit 37 % (33-41); Hemoglobin 12.1 g/dL (12.0-16.0); Mean Platelet Volume 7.5 fL (7.4-10.4); Platelet Count 251 10^3/uL (150-450)
[2018-11-09] MEDS: Levothyroxine TAB* 150 MCG TAB PO SCH (05:48)
[2018-11-09] MEDS: Acetaminophen TAB* 325 MG PO SCH ×2 (05:49→11:24)
[2018-11-09] MEDS: CMCS: Fenofibrate(NF) 145 MG TAB PO SCH (08:28)
[2018-11-09] MEDS: Triamterene/HCTZ 37.5-25 MG* CAP PO SCH (08:29)
[2018-11-09] MEDS: Docusate CAP* 100 MG PO SCH (08:29)
[2018-11-09] MEDS: Pantoprazole TAB * 40 MG TAB PO SCH (08:29)
[2018-11-09] MEDS: Potassium Chlor TAB* 20 MEQ TAB.ER PO SCH (08:29)
[2018-11-09] MEDS: Apixaban* 2.5 MG TAB PO SCH (08:29)
[2018-11-09] MEDS: Magnesium Hydroxide LIQ* 30 ML UDC PO SCH (08:29)
--- NOTE | 2018-11-09 10:15 | PN ---
Progress Note - Progress Note Date of Service: 11/09/18 SOAP: Subjective: []Patient seen at bedside. She is feeling much better today. Looking forward to discharge home. Objective: [] Vital Signs Temp 97.7 F 11/09/18 08:04 Pulse 73 11/09/18 08:04 Resp 18 11/09/18 09:38 BP 116/63 11/09/18 08:04 Pulse Ox 94 11/09/18 08:04 Intake & Output 11/08/18 11/09/18 11/09/18 18:59 06:59 18:59 Intake Total 1480 730 Output Total 750 600 Balance 730 130 Intake: IV Fluids 980 LR 980 Oral 500 730 Output: Urine 750 600 Other: Estimated Void Large # Bowel Movements 0 # Voids 1 Laboratory Results - last 24 hr 11/09/18 05:36 Hgb 12.1 Hct 37 Plt Count 251 MPV 7.5 Right knee wound benign calf Nt and soft sensation and circulation intact distally RLE Assessment: []s/p RTK POD #3 Plan: []WBAT RLE Lorrainequevelin 1 mo post op Discharge home today follow up as scheduled with Dr. Winter
--- NOTE | 2018-11-09 10:49 | DS ---
Orthopedic Discharge Summary - Discharge Summary Date of Admission:11/06/18 Date of Discharge:11/09/18 Date of Surgery:11/06/18 Attending Orthopedic Provider:Moy Pre-operative Diagnosis: Degenerative arthritis right knee Operative Procedure:Right total knee arthroplasty History: MONTANA CORTEZ is a 73 year old F with years of increasingly severe right pain. Patient has failed conservative management and has elected to undergo a right total knee replacement Hospital Course: MONTANA was admitted to [facility] on 11/06/18. Patient underwent a right total knee without complication followed by a brief recovery in PACU and transfer to the Short Stay Surgical Unit in stable condition. Our hospitalist service, physical therapy and occupational therapy also participated in this patients care. Post-op day 1: patient was alert and in no acute distress. Dressing was clean, dry and intact. Operative extremity dorsiflexion and plantarflexion intact, sensation intact to light touch distally , DP2+. She had some vomiting, which resolved with Scope patch and change in narcotic to Tramadol. Post-op day two: dressing was changed, incision was clean , dry and intact. Patient was deemed to be medically and orthopedically stable for discharge home. Physical therapy goals were met. Home Medications Medication Instructions Recorded Confirmed Type Calcium Carbonate/Vitamin D3 1 tab PO QAM 01/05/13 11/06/18 History [Calcium 600-Vit D3 200 Tablet] Levothyroxine TAB* [Synthroid 150 150 mcg PO SUMOWEFRSA 01/05/13 11/06/18 History MCG TAB*] Methylcellulose [Citrucel] 1 tbsp PO QAM 01/05/13 11/06/18 History Triamterene/HCTZ 37.5-25 MG* 1 cap PO QAM 01/05/13 11/06/18 History [Dyazide CAP*] Vitamin B Complex CAP* [B Complex 1 cap PO QAM 01/05/13 11/06/18 History CAP*] Fenofibrate Nanocrystallized 1 tab PO QAM 12/11/17 11/06/18 History [Tricor] Levothyroxine TAB* [Synthroid 125 125 mcg PO TUTH 12/11/17 11/06/18 History MCG TAB*] Polyethylene Glycol 3350* 1 dose PO QAM 12/11/17 11/06/18 History [Miralax*] Potassium Chlor TAB* [Klor Con ER 2 tab PO QAM 05/14/18 11/06/18 History TAB 10 MEQ*] Acetaminophen [Acetaminophen Extra 500 - 1,000 mg PO Q6H PRN 10/29/18 11/06/18 History Strength] Acetaminophen/Diphenhydramine 1 each PO BEDTIME 10/29/18 11/06/18 History [Acetaminophen Pm Caplet] Esomeprazole(NF) [Nexium(NF)] 20 mg PO QAM 10/29/18 11/06/18 History Apixaban* [Eliquis*] 2.5 mg PO BID #60 tab 11/09/18 Rx Docusate CAP* [Colace Cap*] 100 mg PO BID cap 11/09/18 Rx traMADol TAB* [Ultram*] 50 mg PO Q6H PRN #28 tab MDD 4 11/09/18 Rx discharge home 11/09/18 WBAT RLE Out patient PT to start 11/10/18 Eliquis for DVT prophylaxis Meds sent to [facility]
[2018-11-09 11:52] VITALS: BP 111/67
== END 2018-11-09 11:30 | disposition home or self-care (01) | DRG 470 ==
LOC: AA 11:01 → SSU 20:06
PROVIDERS: ADMIT Orthopaedic Surgery Adult Reconstructive Orthopaedic Surgery; ATTEND Orthopaedic Surgery Adult Reconstructive Orthopaedic Surgery
PROC: 0SRC0J9 Replacement of Right Knee Joint with Synthetic Substitute, Cemented, Open Approach (ICD-10-PCS; principal; 2018-11-06 14:00)
DX: M17.11 Unilateral primary osteoarthritis, right knee (principal); I10 Essential (primary) hypertension; E78.00 Pure hypercholesterolemia, unspecified; E03.9 Hypothyroidism, unspecified; M25.461 Effusion, right knee; M81.0 Age-related osteoporosis without current pathological fracture; M16.10 Unilateral primary osteoarthritis, unspecified hip; G60.9 Hereditary and idiopathic neuropathy, unspecified; K64.8 Other hemorrhoids; K21.9 Gastro-esophageal reflux disease without esophagitis; E78.5 Hyperlipidemia, unspecified; M47.26 Other spondylosis with radiculopathy, lumbar region; M25.761 Osteophyte, right knee; R11.0 Nausea; R44.1 Visual hallucinations; E83.42 Hypomagnesemia; Z87.19 Personal history of other diseases of the digestive system; Z88.8 Allergy status to other drugs, medicaments and biological substances; Z91.041 Radiographic dye allergy status; Z91.040 Latex allergy status; Z72.89 Other problems related to lifestyle; Z98.49 Cataract extraction status, unspecified eye; Z90.721 Acquired absence of ovaries, unilateral; Z79.01 Long term (current) use of anticoagulants
CPT/HCPCS: 36415; 80048; 80053; 83735; 84100; 84443; 85014; 85018; 85025; 85027; 85049; 88305; 88311; A9270-GY; C1776; G8978-GP-CJ; G8980-GP-CI; J0690; J0780; J1100; J1170; J2250; J2405; J2704; J2795; J3010; J3475

== ENCOUNTER 2022-09-17 19:20 | Observation (INO) ==
[2022-09-17] MEDS ORDERED: Iodixanol (CONTRAST) 320 MG/ML 100 ML SDV IV ONE (19:42)
[2022-09-17 19:45] LABS: ABS Basophils 0.1 10^3/ul (0-0.2); ABS Eosinophils 0.5 10^3/ul (0-0.6); ABS Lymphocytes 4.4 10^3/ul (1.0-4.8); ABS Neutrophils 3.4 10^3/ul (1.5-7.7); Eosinophil % 5.2 %; Hematocrit 42 % (35-47); Hemoglobin 13.4 g/dL (12.0-16.0); Lymphocyte % 47.3 %; Mean Corpuscular HGB Conc 32 g/dL (31-36); Mean Corpuscular Hemoglobin 27 pg (27-31); Mean Corpuscular Volume 84 fL (80-97); Mean Platelet Volume 7.8 fL (7.4-10.4); Nucleated Red Blood Cells % 0.1; Platelet Count 337 10^3/uL (150-450); Red Blood Count 4.95 10^6 /uL (3.70-4.87); Red Cell Distribution Width 14 % (10-15); White Blood Count 9.3 10^3/uL (3.5-10.8)
[2022-09-17 19:57] LABS: Activated Partial Thrombo Time 30.7 seconds (26.0-38.0); INR 1.04 (0.88-1.18)
[2022-09-17 20:25] LABS: Albumin 4.4 g/dL (3.2-5.2); Albumin/Globulin Ratio 1.6 (1-3); Calcium 10.5 mg/dL (8.6-10.3); Creatinine, Serum 0.94 mg/dL (0.51-0.95); Globulin 2.7 g/dL (2-4); HDL Cholesterol 78.2 mg/dL; Potassium 3.8 mmol/L (3.5-5.0); Total Bilirubin 0.3 mg/dL (0.2-1.0); Total Protein 7.1 g/dL (6.4-8.9); eGFR CKD-EPI 62.1 (>60)
[2022-09-17 22:27] LABS: Urine Appearance Clear; Urine Bilirubin Negative (Negative); Urine Blood Negative (Negative); Urine Color Straw; Urine Glucose Negative (Negative); Urine Ketones Negative (Negative); Urine Nitrite Negative (Negative); Urine Protein Negative (Negative); Urine Specific Gravity 1.023 (1.002-1.030); Urine Urobilinogen Negative (Negative)
[2022-09-17 22:37] LABS: Magnesium 1.9 mg/dL (1.9-2.7)
[2022-09-17] MEDS: Enoxaparin 40 MG/0.4 ML SYR SUBCUT SCH (22:50)
[2022-09-17 22:53] LABS: TSH Ultra Thyroid Stim Horm 6.91 mcIU/mL (0.34-5.60)
[2022-09-18 05:52] LABS: ABS Basophils 0.1 10^3/ul (0-0.2); ABS Eosinophils 0.5 10^3/ul (0-0.6); ABS Lymphocytes 3.5 10^3/ul (1.0-4.8); ABS Monocytes 0.7 10^3/ul (0-0.8); ABS Neutrophils 3.5 10^3/ul (1.5-7.7); Eosinophil % 5.8 %; Hematocrit 42 % (35-47); Hemoglobin 13.5 g/dL (12.0-16.0); Lymphocyte % 42.6 %; Mean Corpuscular HGB Conc 33 g/dL (31-36); Mean Corpuscular Hemoglobin 27 pg (27-31); Mean Corpuscular Volume 84 fL (80-97); Mean Platelet Volume 7.2 fL (7.4-10.4); Platelet Count 309 10^3/uL (150-450); Red Blood Count 4.96 10^6 /uL (3.70-4.87); Red Cell Distribution Width 14 % (10-15); White Blood Count 8.3 10^3/uL (3.5-10.8)
[2022-09-18 06:22] LABS: Creatinine, Serum 0.84 mg/dL (0.51-0.95); Magnesium 1.9 mg/dL (1.9-2.7); Phosphorus 3.5 mg/dL (2.5-5.0); eGFR CKD-EPI 71.1 (>60)
[2022-09-18] MEDS ORDERED: Polyethylene Glycol 3350 17 GM PACKET PO PRN (06:29)
[2022-09-18] MEDS ORDERED: Senna TAB 8.6 mg TAB PO PRN (06:30)
[2022-09-18 08:09] LABS: Free T4 1.1 ng/dL (0.61-1.12)
[2022-09-18 09:25] LABS: Calcium (PTH Intact) 10.1 mg/dL (8.6-10.3)
[2022-09-18] MEDS: Enoxaparin 40 MG/0.4 ML SYR SUBCUT SCH (20:54)
[2022-09-18] MEDS ORDERED: Senna TAB 8.6 mg TAB PO SCH (21:00)
[2022-09-19] MEDS ORDERED: Polyethylene Glycol 3350 17 GM PACKET PO SCH (09:00)
[2022-09-19 11:18] VITALS: BP 146/70
== END 2022-09-19 13:26 | disposition home or self-care (01) ==
LOC: ED 19:20 → EDHOLD 19:20 → SUATTDRO 21:27 → EDHOLD 09-18 06:11 → MEDTELE 09-18 12:10
PROVIDERS: ADMIT Internal Medicine; ATTEND Family Medicine